=== PATIENT | male | born 1960 | race Caucasian/White ===

== ENCOUNTER 2016-07-22 20:47 | Inpatient (IN) | payer BC ==
[~2016-07-22] VITALS: Ht 165.1 cm; Wt 129.0 kg
--- NOTE | 2016-07-22 21:32 | ERA ---
ER Documentation Chief Complaint Date/Time DATE: 07/22/16 TIME: 21:31 Chief Complaint GENERALIZED AP +VOMITING SINCE THIS AM. BIB BY RESCUE HPI The patient is a 56-year-old male, presenting to the ER because of epigastric abdominal pain, associated with vomiting and diaphoresis today. He denies similar symptoms previously, denies fever, chills, neck pain. The epigastric chest pain radiates up to the substernal area. He denies any hematemesis, vomited mostly mucous. He denied dysuria, diarrhea, constipation. He smokes a pack a day, drinks socially, denies illicit drug Past medical history: CAD, history of non-STEMI, sleep apnea Past surgical history: None ROS All systems reviewed and are negative except as per history of present illness. Medications Home Meds Unable to Obtain Active Prescriptions or Reported Meds Allergies Allergies: Coded Allergies: No Known Allergy (Unverified , 07/22/16) PMhx/Soc History of Surgery: No Anesthesia Reaction: No Hx Neurological Disorder: No Hx Respiratory Disorders: No Hx Cardiac Disorders: No Hx Psychiatric Problems: No Hx Miscellaneous Medical Probl: No Hx Alcohol Use: Yes (OOC) Hx Substance Use: No Hx Tobacco Use: Yes Physical Exam Vitals Vital Signs Date Time Temp Pulse Resp B/P Pulse Ox O2 Delivery O2 Flow Rate FiO2 07/23/16 01:30 93 26 154/81 95 Nasal Cannula 2.0 07/23/16 00:00 98 15 144/104 97 Nasal Cannula 2.0 07/22/16 23:00 103 14 156/86 93 Nasal Cannula 2.0 07/22/16 22:00 101 20 154/91 98 Nasal Cannula 2.0 07/22/16 21:45 Nasal Cannula 2 07/22/16 20:52 100.1 111 26 165/81 94 Physical Exam Const: No acute distress. Head: Atraumatic. Eyes: Normal Conjunctiva. ENT: Normal External Ears, Nose and Mouth. Neck: Full range of motion. No meningismus. Resp: Clear to auscultation bilaterally. Cardio: Regular but tachycardic Abd: Soft, non distended, normal bowel sounds, diffuse abdominal tenderness, more tender at the epigastric area, no rigidity, rebound, CVA tenderness Skin: No petechiae or rashes. Back: No midline or flank tenderness. Ext: No cyanosis, or edema. Neur: Awake and alert. No focal deficit Psych: Normal Mood and Affect. Result Diagram: 07/22/16214907/22/162149 Results 24 hrs Laboratory Tests Test 07/22/16 21:50 07/22/16 22:33 07/22/16 22:40 07/22/16 23:50 White Blood Count 9.410^3/ul Red Blood Count 5.6610^6/ul Hemoglobin 17.1g/dl Hematocrit 50.5% Mean Corpuscular Volume 89.2fl Mean Corpuscular Hemoglobin 30.2pg Mean Corpuscular Hemoglobin Concent 33.9g/dl Red Cell Distribution Width 13.0% Platelet Count 05833^3/UL Mean Platelet Volume 10.1fl Neutrophils % 86.5% Lymphocytes % 8.1% Monocytes % 3.1% Eosinophils % 1.4% Basophils % 0.4% Nucleated Red Blood Cells % 0.0/100WBC Neutrophils # 8.110^3/ul Lymphocytes # 0.810^3/ul Monocytes # 0.310^3/ul Eosinophils # 0.110^3/ul Basophils # 0.010^3/ul Nucleated Red Blood Cells # 0.010^3/ul Prothrombin Time 12.7Sec Prothrombin Time Ratio 1.0 INR International Normalized Ratio 0.95 Activated Partial Thromboplast Time 27.2Sec Sodium Level 136mmol/L Potassium Level 4.3mmol/L Chloride Level 103mmol/L Carbon Dioxide Level 24mmol/L Anion Gap 13 Blood Urea Nitrogen 25mg/dl Creatinine 0.70mg/dl Glucose Level 203mg/dl Lactic Acid Level 2.2mmol/L 1.8mmol/L Calcium Level 8.8mg/dl Total Bilirubin 0.5mg/dl Direct Bilirubin 0.00mg/dl Indirect Bilirubin 0.5mg/dl Aspartate Amino Transf (AST/SGOT) 36IU/L Alanine Aminotransferase (ALT/SGPT) 70IU/L Alkaline Phosphatase 123IU/L Troponin I < 0.012ng/ml B-Type Natriuretic Peptide 46PG/ML Total Protein 7.6g/dl Albumin 4.6g/dl Globulin 3.00g/dl Albumin/Globulin Ratio 1.53 Lipase 145U/L Urine Color YELLOW Urine Clarity CLEAR Urine pH 5.5 Urine Specific [place] >=1.030 Urine Ketones NEGATIVE Urine Nitrite NEGATIVE Urine Bilirubin NEGATIVE Urine Urobilinogen 0.2 E.U./dL Urine Leukocyte Esterase NEGATIVE Urine Microscopic RBC 0-2/HPF Urine Microscopic WBC 2-5/HPF Urine Squamous Epithelial Cells FEW Urine Mucus FEW Urine Hemoglobin NEGATIVE Urine Glucose 0.1%% Urine Total Protein 2+ Bedside Urine pH (LAB) 5.5 Bedside Urine Protein (LAB) 3+ Bedside Urine Glucose (UA) 0.1% Bedside Urine Ketones (LAB) Negative Bedside Urine Blood Negative Bedside Urine Nitrite (LAB) Negative Bedside Urine Leukocyte Esterase (L Negative Current Medications Medications (Trade) Dose Ordered Sig/Bhaskar Route PRN Reason Start Time Stop Time Status Last Admin Dose Admin Ondansetron HCl (Zofran Inj) 4 mg ONCE STAT IV 07/22/16 21:39 07/22/16 21:44 DC 07/22/16 21:46 Morphine Sulfate (morphine) 4 mg ONCE STAT IV 07/22/16 21:48 07/22/16 21:49 DC 07/22/16 21:53 Ondansetron HCl 4 mg 4 mg ONCE STAT IV 07/22/16 21:48 07/22/16 21:49 DC 07/22/16 21:53 Sodium Chloride 4,010 ml @ 4,010 mls/hr BOLUS X1 ONCE IV 07/23/16 00:30 07/23/16 01:29 DC 07/23/16 00:18 Piperacillin Sod/ Tazobactam Sod (Zosyn 3.375gm/ 100 ml (Pmx)) 100 ml @ 200 mls/hr ONCE ONCE IVPB 07/23/16 00:30 07/23/16 00:59 DC 07/23/16 00:18 Aspirin (Aspirin) 325 mg ONCE ONCE PO 07/23/16 00:30 07/23/16 00:31 DC 07/23/16 00:18 Nitroglycerin (Nitroglycerin 2% Oint) 1 inch ONCE ONCE TD 07/23/16 00:30 07/23/16 00:31 DC 07/23/16 00:19 Procedures/[place] [id number] Radiology Main Line: [phone] DIAGNOSTIC IMAGING REPORT Patient: HYUN BRYAN : 1960 Age: 56 Sex: M MR #: [id number] DOS: 07/22/169 Ordering MD: SUSHILA CERVANTES MD Location: E/R Room/Bed: PROCEDURE: CHEST - 1 VIEW CLINICAL INDICATION: 56-year-old male with chest pain. TECHNIQUE: A single frontal AP portable view of the chest was performed. The images were reviewed on a PACS workstation. COMPARISON: Chest x-ray January 05, 2013. FINDINGS: The cardiomediastinal silhouette is prominent but without significant interval change. There is a shallow inspiration. There is mild bibasilar subsegmental atelectasis. There is no evidence for an infiltrate. There is no evidence for congestive heart failure. There is no evidence for pneumothorax. The osseous structures are intact. IMPRESSION: Shallow inspiration with mild bibasilar subsegmental atelectasis. .Nicko Mason MD, MD Date Time Electronically viewed and signed by .Nicko Mason MD, MD on 07/22/2016 22:18 .M/ CC: SUSHILA CERVANTES MD [place] [id number] Radiology Main Line: [phone] DIAGNOSTIC IMAGING REPORT Patient: HYUN BRYAN : 1960 Age: 56 Sex: M MR #: [id number] DOS: 07/22/16 215 Ordering MD: SUSHILA CERVANTES MD Location: E/R Room/Bed: PROCEDURE: CT Abdomen and Pelvis without contrast CLINICAL INDICATION: Epigastric abdominal pain with vomiting TECHNIQUE: Transaxial images were obtained through the abdomen and pelvis on a multi-slice scanner without the intravenous contrast administration. No oral contrast had previously been given. Sagittal and coronal re-formations were subsequently reconstructed. One or more of the following dose reduction techniques were used: - Automated exposure control. - Adjustment of the mA and/or kV according to patient size. - Use of iterative reconstruction technique. Radiation dose: CTDIvol = 23.66 mGy; DLP = 1407.81 mGy-cm. COMPARISON: No prior studies are available for comparison. FINDINGS: Lung bases: The lung bases appear unremarkable but there is a prominent mediastinal fat pad. Liver: The liver is enlarged and heterogeneously extensively fatty infiltrated. No discrete focal lesion is identified. Gallbladder: The wall is not thickened. No radiopaque stones are identified. Bile ducts: The intra and extrahepatic bile ducts are normal in caliber. Pancreas: Appears normal with no mass or inflammation evident. Spleen: The spleen is enlarged. Adrenals: The adrenals are mildly prominent. Kidneys, ureters and bladder: The kidneys are normal in size and there is no mass, pathological calcification, or hydronephrosis evident. There is no perinephric stranding. The ureters are normal in caliber and no ureteroliths are identified. The bladder appears unremarkable. Reproductive organs: The prostate is not enlarged. Stomach and bowel: The stomach is moderately distended with fluid and food debris. The small bowel is mildly diffusely distended with fluid compatible with ileus. There is no evidence of bowel obstruction or inflammation. Appendix: The vermiform appendix is not discretely identified. Peritoneum: No free intraperitoneal fluid or air is identified. Aorta: There is atherosclerotic vascular calcification but no abdominal aortic aneurysm is evident. IVC: Unremarkable. Lymph nodes: No pathologically enlarged nodes are identified. Osseous structures: Moderate diffuse degenerative spine changes are noted. IMPRESSION: 1. The stomach is moderately distended with fluid and food debris and the small bowel gas pattern reflects an ileus. There is no evidence of bowel obstruction or inflammation. The vermiform appendix is not discretely identified. 2. Hepatomegaly with heterogeneous but extensive fatty infiltration. There is mild splenomegaly. 3. There is no free intraperitoneal fluid or air. 4. The adrenals appear mildly hypertrophied. 5. Mild atherosclerotic vascular calcification 6. Moderate degenerative spine changes. Physician Navdeep Date Time Electronically viewed and signed by Physician Navdeep on 07/22/2016 22:44 RH/ CC: SUSHILA CERVANTES MD EKG: At 2138 hrs. read by emergency physician Rate/Rhythm: Sinus tachycardia 101 beats/min QRS, ST, T-waves: No ST elevation, no T inversion, RSR prime in V1, left anterior fascicular block, inferior Q waves Impression: Abnormal EKG EKG: At 2214 hrs. read by emergency physician Rate/Rhythm: Sinus tachycardia 102 beats/min QRS, ST, T-waves: No ST elevation, no T inversion, RSR prime in V1, left anterior fascicular block, inferior Q waves Impression: Abnormal EKG MEDICAL MAKING DECISION: The patient is a 56-year-old male, presenting with acute severe sepsis, acute chest pain. He was treated with normal saline 30 mL/ kg IV, Zosyn IV for acute severe sepsis, aspirin 325 mg p.o., 1 inch of nitroglycerin ointment, morphine 4 mg IV for pain and Zofran 4 mg IV for nausea with good response. The differential diagnoses acute chest pain considered include but are not limited to acute coronary syndrome, acute myocardial infarction, pericarditis, pulmonary embolism, aortic dissection, pneumonia, pleural effusion, pneumothorax , GERD, chest wall pain. The differential diagnoses acute abdominal pain considered include but are not limited to cholelithiasis, cholecystitis, cystitis, pancreatitis, hepatitis, gastritis, peptic ulcer disease, gastric ulcer, appendicitis, diverticulitis, cholangitis, choledocholithiasis, partial small bowel obstruction. Admit MDM: Patient's infectious symptoms have not stabilized and the patient is at risk of rapid decompensation. The patient will be admitted for careful hydration, antibiotic therapy, and infectious source control. Severe Sepsis criteria: Infectious source: Unknown End organ damage indicated by: Lactate > 2.0 mmol/L Sepsis Management: Time of recognition of severe sepsis/septic shock:2200 hours Within 3 hours of recognition: Blood cultures x 2 before broad-spectrum antibiotics: Yes 30 ml/kg NS bolus completed Initial lactate 2.2 Repeat lactate pending Critical Care: Critical care time 35 minutes Emergent fluid management while maintaining close respiratory support. Provision of immediate and broad-spectrum antibiotic therapy. Simultaneous assessment for possible sources in order to direct targeted therapy. Consideration for invasive and chemical support to prevent cardiopulmonary collapse. Departure Diagnosis: Primary Impression: Severe sepsis Additional Impressions: Chest pain Abdominal pain Transaminitis Condition: Stable Comments I discussed the findings with the patient. I discussed the patient with the on- call hospitalist Dr. Rouse at 12:40 AM who was made aware of the lab, the treatment, the patient condition. The patient is admitted to telemetry The patient's blood pressure was elevated (>120/80) but appears stable without evidence of hypertension emergency or urgency. The patient was counseled about the risks of hypertension and urged to pursue outpatient monitoring and therapy within a week with their primary care physician. SUSHILA CERVANTES MD July 22, 2016 21:32
[2016-07-22] MEDS ORDERED: ONDANSETRON 4 MG INJ IV STA ×2 (21:39→21:48)
[2016-07-22] MEDS ORDERED: morphine 4 MG/ML VIAL IV STA (21:48)
[2016-07-22 22:12] LABS: ADD SCAN DIFF NO
[2016-07-22 22:14] LABS: BASOPHILS % 0.4 % (0.0-2.0); EOSINOPHILS # 0.1 10^3/ul (0.0-0.5); EOSINOPHILS % 1.4 % (0.0-7.0); HEMATOCRIT 50.5 % (42.0-52.0); HEMOGLOBIN 17.1 g/dl (14.0-18.0); LYMPHOCYTES # 0.8 10^3/ul (0.8-2.9); LYMPHOCYTES % 8.1 % (15.0-51.0); MEAN CORPUSCULAR HEMOGLOBIN 30.2 pg (29.0-33.0); MEAN CORPUSCULAR HGB CONC 33.9 g/dl (32.0-37.0); MEAN CORPUSCULAR VOLUME 89.2 fl (82.0-101.0); MEAN PLATELET VOLUME 10.1 fl (7.4-10.4); MONOCYTE # 0.3 10^3/ul (0.3-0.9); MONOCYTES % 3.1 % (0.0-11.0); NEUTROPHIL # 8.1 10^3/ul (1.6-7.5); NEUTROPHILS % 86.5 % (39.0-77.0); PLATELET COUNT 207 10^3/UL (140-415); RED BLOOD COUNT 5.66 10^6/ul (4.70-6.10); WHITE BLOOD COUNT 9.4 10^3/ul (4.8-10.8)
--- NOTE | 2016-07-22 22:18 | RADRPT ---
PROCEDURE: CHEST - 1 VIEW CLINICAL INDICATION: 56-year-old male with chest pain. TECHNIQUE: A single frontal AP portable view of the chest was performed. The images were reviewed on a PACS workstation. COMPARISON: Chest x-ray January 05, 2013. FINDINGS: The cardiomediastinal silhouette is prominent but without significant interval change. There is a s hallow inspiration. There is mild bibasilar subsegmental atelectasis. There is no evidence for an infiltrate. There is no evidence for congestive heart failure. There is no evidence for pneumothora x. The osseous structures are intact. IMPRESSION: Shallow inspiration with mild bibasilar subsegmental atelectasis. .Nicko Mason MD, MD Date Time Electronically viewed and signed by .Nicko Mason MD, on 07/22/2016 22:18 .M/
[2016-07-22 22:30] LABS: INR 0.95; PARTIAL THROMBOPLASTIN TIME 27.2 Sec (25.0-35.0); PROTIME 12.7 Sec (12.2-14.2)
[2016-07-22 22:38] LABS: URINE BLOOD (Dip) POC Negative (NEGATIVE)
--- NOTE | 2016-07-22 22:45 | RADRPT ---
PROCEDURE: CT Abdomen and Pelvis without contrast CLINICAL INDICATION: Epigastric abdominal pain with vomiting TECHNIQUE: Transaxial images were obtained through the abdomen and pelvis on a multi-slice scanner without the intravenous contrast administration. No oral contrast had previously been given. Sagit namrata and coronal re-formations were subsequently reconstructed. One or more of the following dose reduction techniques were used: - Automated exposure control. - Adjustment of the mA and/or kV according to patient size. - Use of iterative reconstruction technique. Radiation dose: CTDIvol = 23.66 mGy; DLP = 1407.81 mGy-cm. COMPARISON: No prior studies are available for comparison. FINDINGS: Lung bases: The lung bases appear unremarkable but there is a prominent mediastinal fat pad. Liver: The liver is enlarged and heterogeneously extensively fatty infiltrated. No discrete focal l esion is identified. Gallbladder: The wall is not thickened. No radiopaque stones are identified. Bile ducts: The intra and extrahepatic bile ducts are normal in caliber. Pancreas: Appears normal with no mass or inflammation evident. Spleen: The spleen is enlarged. Adrenals: The adrenals are mildly prominent. Kidneys, ureters and bladder: The kidneys are normal in size and there is no mass, pathological calc ification, or hydronephrosis evident. There is no perinephric stranding. The ureters are normal in c aliber and no ureteroliths are identified. The bladder appears unremarkable. Reproductive organs: The prostate is not enlarged. Stomach and bowel: The stomach is moderately distended with fluid and food debris. The small bowel is mildly diffusely distended with fluid compatible with ileus. There is no evidence of bowel obstr uction or inflammation. Appendix: The vermiform appendix is not discretely identified. Peritoneum: No free intraperitoneal fluid or air is identified. Aorta: There is atherosclerotic vascular calcification but no abdominal aortic aneurysm is evident. IVC: Unremarkable. Lymph nodes: No pathologically enlarged nodes are identified. Osseous structures: Moderate diffuse degenerative spine changes are noted. IMPRESSION: 1. The stomach is moderately distended with fluid and food debris and the small bowel gas pattern r eflects an ileus. There is no evidence of bowel obstruction or inflammation. The vermiform appendi x is not discretely identified. 2. Hepatomegaly with heterogeneous but extensive fatty infiltration. There is mild splenomegaly. 3. There is no free intraperitoneal fluid or air. 4. The adrenals appear mildly hypertrophied. 5. Mild atherosclerotic vascular calcification 6. Moderate degenerative spine changes. Rebecca Yancey Physician Date Time Electronically viewed and signed by Rebecca Yancey Physician on 07/22/2016 22:44 /
[2016-07-22 22:58] LABS: ALANINE AMINOTRANSFERASE 70 IU/L (13-69); ALBUMIN 4.6 g/dl (3.3-4.9); ALBUMIN/GLOBULIN RATIO 1.53; ALKALINE PHOSPHATASE 123 IU/L (42-121); ANION GAP 13 (8-16); ASPARTATE AMINO TRANSFERASE 36 IU/L (15-46); BILIRUBIN,INDIRECT 0.5 mg/dl (0-1.1); BILIRUBIN,TOTAL 0.5 mg/dl (0.2-1.3); BLOOD UREA NITROGEN 25 mg/dl (7-20); CALCIUM 8.8 mg/dl (8.4-10.2); CARBON DIOXIDE 24 mmol/L (21-31); CHLORIDE 103 mmol/L (97-110); GLUCOSE 203 mg/dl (70-220); POTASSIUM 4.3 mmol/L (3.5-5.1); SODIUM 136 mmol/L (135-144); TOTAL PROTEIN 7.6 g/dl (6.1-8.1)
[2016-07-22 23:10] LABS: B-TYPE NATRIURETIC PEPTIDE 46 PG/ML (0-125)
[2016-07-22 23:26] LABS: TROPONIN-I < 0.012 ng/ml (0.00-0.12)
[2016-07-22 23:44] LABS: ADD UMIC YES; URINE BILIRUBIN (Dip) NEGATIVE (NEGATIVE); URINE BLOOD (Dip) NEGATIVE (NEGATIVE); URINE COLOR YELLOW (YELLOW); URINE KETONES (Dip) NEGATIVE (NEGATIVE); URINE LEUKOCYTE ESTERASE (Dip) NEGATIVE (NEGATIVE); URINE NITRITE (Dip) NEGATIVE (NEGATIVE); URINE TOTAL PROTEIN (Dip) 2+ (NEGATIVE); URINE UROBILINOGEN (Dip) 0.2 E.U./dL (0.1-1.0)
[2016-07-22 23:56] LABS: SQUAMOUS EPITHELIAL CELL,UR FEW; URINE RBCS 0-2 /HPF (0)
[2016-07-22 23:57] LABS: MUCUS,URINE FEW
[2016-07-23] MEDS ORDERED: PIPER-TAZO 3.375 GM IV (PMX) 100 ML IVPB ONE (00:30)
[2016-07-23] MEDS ORDERED: ASPIRIN 325 MG TAB PO ONE (00:30)
[2016-07-23] MEDS ORDERED: SOD CHLORIDE 0.9% IV ONE (00:30)
[2016-07-23] MEDS ORDERED: NITROGLYCERIN 2% 1 GM OINT PKT TD ONE (00:30)
[2016-07-23 02:00] LABS: AADO2 Arterial 63.7 mmHg (7.0-24.0); Allen Test ACCEPTAB; Arterial Base Excess -0.1 mmol/L (-3.0-3); Arterial COHb 2.5 % (0.0-3.0); Arterial Fraction of Oxyhgb 89.8 % (93.0-99.0); Arterial HCO3 26.7 mmol/L (22.0-26.0); Arterial MetHb 0.3 % (0.0-1.5); Arterial Total Hemglobin 16.8 g/dl (12.0-18.0); MODE NASAL CANNULA
[2016-07-23 02:10] VITALS: PULSE 100
[2016-07-23 02:20] VITALS: Ht 165.1 cm; Wt 129.0 kg
[2016-07-23] MEDS ORDERED: SOD CHLORIDE 0.9% 1,000 ML IV SCH (03:10)
[2016-07-23] MEDS ORDERED: NACL 0.9% 3 ML SYG IV SCH (03:30)
[2016-07-23] MEDS ORDERED: ONDANSETRON 4 MG INJ IV PRN (03:30)
[2016-07-23] MEDS ORDERED: ACETAMINOPHEN 325 MG TAB PO PRN (03:30)
[2016-07-23] MEDS ORDERED: LORAZEPAM 2 MG INJ IV PRN (03:30)
[2016-07-23] MEDS ORDERED: morphine 2 MG INJ IV PRN (03:30)
--- NOTE | 2016-07-23 03:34 | HP ---
Date/Time of Note Date/Time of Note DATE: 07/23/16 TIME: 03:06 Assessment/Plan VTE Prophylaxis VTE Prophylaxis Intervention: LMWH Lines/Catheters IV Catheter Type [facility]from [facility] Saline Lock Assessment/Plan Chief Complaint/Hosp Course This is a 56-year-old male being admitted to the telemetry floor for: #1 severe sepsis: Patient presented with a temperature 100.1 along with elevated respiratory rate 26 and a lactate of 2.2 and a white blood cell count of 12. At the current time there is no definitive definitive source of infection. CAT scan of the abdomen did show an ileus. Chest x-ray was negative. Will await urine and blood cultures. At the current time patient received Zosyn in the ED, will continue Zosyn for now. Consider ID consult if indicated. #2 chest pain: Rule out ACS. Patient has a prior history of coronary artery disease as well as an WA in the past. Patient also has sleep apnea and is morbidly obese which puts him at high cardiac risk. First troponin was negative will trend troponins, will check a 2D echocardiogram. Will consult cardiology if indicated by the clinical course. #3 ileus: On CT exam shows to be a possible ileus. Will keep patient n.p.o. for right now provide IV fluid hydration. #4 Coronary artery disease: Workup for chest pain as per #2. Will consult cardiology as indicated. Will ask patient's family to bring in home medications. #5sleep apnea: Patient did bring his home CPAP machine will continue him on the CPAP machine. #6hypertension: We will continue to monitor this again patient was advised to provide us with his home medications. #7 DVT and GI prophylaxis: Lovenox, Protonix Further treatment strategy will be implemented as per the clinical course Problems: HPI/ROS Admit Date/Time Admit Date/Time July 23, 2016 at 00:47 Hx of Present Illness Chief complaint: epigastric chest pain The patient is a 56-year-old male, presenting to the ER because of epigastric abdominal pain, associated with vomiting and diaphoresis today. He denies similar symptoms previously, denies fever, chills, neck pain. The epigastric chest pain radiates up to the substernal area. He denies any hematemesis, vomited mostly mucous. He denied dysuria, diarrhea, constipation. He smokes a pack a day, drinks socially, denies illicit drug allergies: nkda meds: see APR ROS Const: As per HPI Eyes : No pain discharge or redness or change in visual acuity ENT: No pain, sore throat, congestion, congestion, dysphagia or discharge Respiratory: as per HPI Cardiovascular: As per HPI GI : no change in appetite, abdominal pain, nausea, vomiting, diarrhea, constipation, or change in the color his stool Genitourinary: No dysuria, hematuria, flank pain , discharge or CVA tenderness Musculoskeletal: No joint pain, back pain, neck pain, restricted range of motion in neck or joints Skin: No rash, bruising or hives Neuro: No headache, dizziness, syncope, seizure, focal weakness Endocrine: No polyuria, polydipsia, temperature intolerance Psych: No hallucination, depression, anxiety or suicidal ideation PMH/Family/Social Past Medical History CAD, history of non-STEMI, sleep apnea, hypertension Past Surgical History Cholecystectomy, left ankle surgery, left and surgery Social History Alcohol Use: none Smoking Status: Current every day smoker (1 pack per day 32 years) Drug Use: none Exam/Review of Systems Vital Signs Vitals Vital Signs Date Time Temp Pulse Resp B/P Pulse Ox O2 Delivery O2 Flow Rate FiO2 07/23/16 01:30 93 26 154/81 95 Nasal Cannula 2.0 07/22/16 20:52 100.1 Exam Exam General: This is a morbidly obese male laying in bed in no acute distress HEENT: Atraumatic, normocephalic. The pupils are equal, round and reactive. Using a sleep apnea machine Neck: Supple with full range of motion. No rigidity or meningismus Chest: Tender to palpate across the anterior chest wall Lungs: Clear to auscultation bilaterally no crackles rales or wheezing Heart: Normal S1-S2, Regular rhythm and rate. No murmur, S3, or S4 Abdomen: Soft , nontender, nondistended , bowel sounds are present. No guarding no rebound tenderness , No masses or organomegaly. Right abdominal quadrant surgical scar. Extremities: Normal to inspection, no edema no cyanosis Neurologic: Normal mental status, speech normal, cranial nerves II through XII are intact, motor and sensory are intact, no focal weakness Additional Comments PROCEDURE: CT Abdomen and Pelvis without contrast CLINICAL INDICATION: Epigastric abdominal pain with vomiting TECHNIQUE: Transaxial images were obtained through the abdomen and pelvis on a multi-slice scanner without the intravenous contrast administration. No oral contrast had previously been given. Sagittal and coronal re-formations were subsequently reconstructed. One or more of the following dose reduction techniques were used: - Automated exposure control. - Adjustment of the mA and/or kV according to patient size. - Use of iterative reconstruction technique. Radiation dose: CTDIvol = 23.66 mGy; DLP = 1407.81 mGy-cm. COMPARISON: No prior studies are available for comparison. FINDINGS: Lung bases: The lung bases appear unremarkable but there is a prominent mediastinal fat pad. Liver: The liver is enlarged and heterogeneously extensively fatty infiltrated. No discrete focal lesion is identified. Gallbladder: The wall is not thickened. No radiopaque stones are identified. Bile ducts: The intra and extrahepatic bile ducts are normal in caliber. Pancreas: Appears normal with no mass or inflammation evident. Spleen: The spleen is enlarged. Adrenals: The adrenals are mildly prominent. Kidneys, ureters and bladder: The kidneys are normal in size and there is no mass, pathological calcification, or hydronephrosis evident. There is no perinephric stranding. The ureters are normal in caliber and no ureteroliths are identified. The bladder appears unremarkable. Reproductive organs: The prostate is not enlarged. Stomach and bowel: The stomach is moderately distended with fluid and food debris. The small bowel is mildly diffusely distended with fluid compatible with ileus. There is no evidence of bowel obstruction or inflammation. Appendix: The vermiform appendix is not discretely identified. Peritoneum: No free intraperitoneal fluid or air is identified. Aorta: There is atherosclerotic vascular calcification but no abdominal aortic aneurysm is evident. IVC: Unremarkable. Lymph nodes: No pathologically enlarged nodes are identified. Osseous structures: Moderate diffuse degenerative spine changes are noted. IMPRESSION: 1. The stomach is moderately distended with fluid and food debris and the small bowel gas pattern reflects an ileus. There is no evidence of bowel obstruction or inflammation. The vermiform appendix is not discretely identified. 2. Hepatomegaly with heterogeneous but extensive fatty infiltration. There is mild splenomegaly. 3. There is no free intraperitoneal fluid or air. 4. The adrenals appear mildly hypertrophied. 5. Mild atherosclerotic vascular calcification 6. Moderate degenerative spine changes. Physician Navdeep Date Time Electronically viewed and signed by Physician Navdeep on 07/22/2016 22:44 PROCEDURE: CHEST - 1 VIEW CLINICAL INDICATION: 56-year-old male with chest pain. TECHNIQUE: A single frontal AP portable view of the chest was performed. The images were reviewed on a PACS workstation. COMPARISON: Chest x-ray January 05, 2013. FINDINGS: The cardiomediastinal silhouette is prominent but without significant interval change. There is a shallow inspiration. There is mild bibasilar subsegmental atelectasis. There is no evidence for an infiltrate. There is no evidence for congestive heart failure. There is no evidence for pneumothorax. The osseous structures are intact. IMPRESSION: Shallow inspiration with mild bibasilar subsegmental atelectasis. ate/Rhythm: Sinus tachycardia 102 beats/min QRS, ST, T-waves: No ST elevation, no T inversion, RSR prime in V1, left anterior fascicular block, inferior Q waves As per ED physician documentation Labs Result Diagram: 07/22/16214907/22/162149 SAEED GARCIA July 23, 2016 03:16
[2016-07-23 03:51] VITALS: BP 147/82; RESP 17
[2016-07-23 04:43] LABS: CREATINE KINASE 328 IU/L (23-200)
[2016-07-23 04:55] LABS: TROPONIN-I < 0.012 ng/ml (0.00-0.12)
[2016-07-23] MEDS ORDERED: PANTOPRAZOLE 40 MG INJ IV SCH (06:00)
[2016-07-23] MEDS ORDERED: PIPER-TAZO 3.375 GM IV (PMX) 100 ML IVPB SCH (06:00)
[2016-07-23 07:46] VITALS: BP 162/74; RESP 20
[2016-07-23] MEDS ORDERED: ENOXAPARIN 40 MG/0.4 ML SYG SC SCH (09:00)
[2016-07-23 09:07] VITALS: PULSE 99
--- NOTE | 2016-07-23 09:47 | DS ---
Date/Time of Note Date/Time of Note DATE: 07/23/16 TIME: 09:41 Discharge Summary Admission/Discharge Info Admit Date/Time July 23, 2016 at 00:47 Discharge Date/Time Final Diagnosis ileus Patient Condition: Fair Consults cardiology Procedures 07.23 CT A/P IMPRESSION: 1. The stomach is moderately distended with fluid and food debris and the small bowel gas pattern reflects an ileus. There is no evidence of bowel obstruction or inflammation. The vermiform appendix is not discretely identified. 2. Hepatomegaly with heterogeneous but extensive fatty infiltration. There is mild splenomegaly. 3. There is no free intraperitoneal fluid or air. 4. The adrenals appear mildly hypertrophied. 5. Mild atherosclerotic vascular calcification 6. Moderate degenerative spine changes. Hx of Present Illness 56 yo M presents with 1 day of vomitting, epigastric pain. Hospital Course Pt's imaging showed an ileus. In the morning pt was very angry, requesting to leave the hospital. With the help of an Tajik speaking orthodontic lab technician, pt's condition was discussed at length with him and his . Nature of ileus, delay in small bowel transit, discussed at length. Risks of leaving at this time including but not limited to recurrence of abd pain and vomiting, debility , and discussed with patient. Nonetheless, patient still insisted on leaving. Pt advise to start with liquid PO trial and to return to this or the nearest ER should any vomiting, abdominal pain, chest pain, or shortness of breath occur. Nurse completed AMA paperwork. Home Meds Unable to Obtain Active Prescriptions or Reported Meds Primary Care Provider Jean-Claude Bruno Pending Labs Laboratory Tests Test 07/22/16 21:50 07/22/16 22:33 07/22/16 22:40 07/22/16 23:50 White Blood Count 9.410^3/ul (4.8-10.8) Red Blood Count 5.6610^6/ul (4.70-6.10) Hemoglobin 17.1g/dl (14.0-18.0) Hematocrit 50.5% (42.0-52.0) Mean Corpuscular Volume 89.2fl (82.0-101.0) Mean Corpuscular Hemoglobin 30.2pg (29.0-33.0) Mean Corpuscular Hemoglobin Concent 33.9g/dl (32.0-37.0) Red Cell Distribution Width 13.0% (11.5-14.5) Platelet Count 64342^3/UL (140-415) Mean Platelet Volume 10.1fl (7.4-10.4) Neutrophils % 86.5% (39.0-77.0) Lymphocytes % 8.1% (15.0-51.0) Monocytes % 3.1% (0.0-11.0) Eosinophils % 1.4% (0.0-7.0) Basophils % 0.4% (0.0-2.0) Nucleated Red Blood Cells % 0.0/100WBC (0.0-0.0) Neutrophils # 8.110^3/ul (1.6-7.5) Lymphocytes # 0.810^3/ul (0.8-2.9) Monocytes # 0.310^3/ul (0.3-0.9) Eosinophils # 0.110^3/ul (0.0-0.5) Basophils # 0.010^3/ul (0.0-0.1) Nucleated Red Blood Cells # 0.010^3/ul (0.0-0.0) Prothrombin Time 12.7Sec (12.2-14.2) Prothrombin Time Ratio 1.0 INR International Normalized Ratio 0.95 Activated Partial Thromboplast Time 27.2Sec (25.0-35.0) Sodium Level 136mmol/L (135-144) Potassium Level 4.3mmol/L (3.5-5.1) Chloride Level 103mmol/L (97-110) Carbon Dioxide Level 24mmol/L (21-31) Anion Gap 13 (8-16) Blood Urea Nitrogen 25mg/dl (7-20) Creatinine 0.70mg/dl (0.61-1.24) Glucose Level 203mg/dl (70-220) Lactic Acid Level 2.2mmol/L (0.5-2.2) 1.8mmol/L (0.5-2.2) Calcium Level 8.8mg/dl (8.4-10.2) Total Bilirubin 0.5mg/dl (0.2-1.3) Direct Bilirubin 0.00mg/dl (0.00-0.20) Indirect Bilirubin 0.5mg/dl (0-1.1) Aspartate Amino Transf (AST/SGOT) 36IU/L (15-46) Alanine Aminotransferase (ALT/SGPT) 70IU/L (13-69) Alkaline Phosphatase 123IU/L (42-121) Troponin I < 0.012ng/ml (0.00-0.12) B-Type Natriuretic Peptide 46PG/ML (0-125) Total Protein 7.6g/dl (6.1-8.1) Albumin 4.6g/dl (3.3-4.9) Globulin 3.00g/dl (1.3-3.2) Albumin/Globulin Ratio 1.53 Lipase 145U/L (23-300) Urine Color YELLOW (YELLOW) Urine Clarity CLEAR (CLEAR) Urine pH 5.5 (5.0-9.0) Urine Specific [place] >=1.030 (1.003-1.030) Urine Ketones NEGATIVE (NEGATIVE) Urine Nitrite NEGATIVE (NEGATIVE) Urine Bilirubin NEGATIVE (NEGATIVE) Urine Urobilinogen 0.2 E.U./dL (0.1-1.0) Urine Leukocyte Esterase NEGATIVE (NEGATIVE) Urine Microscopic RBC 0-2/HPF (0) Urine Microscopic WBC 2-5/HPF (0) Urine Squamous Epithelial Cells FEW Urine Mucus FEW Urine Hemoglobin NEGATIVE (NEGATIVE) Urine Glucose 0.1%% (NEGATIVE) Urine Total Protein 2+ (NEGATIVE) Bedside Urine pH (LAB) 5.5 (5.0-8.5) Bedside Urine Protein (LAB) 3+ (NEGATIVE) Bedside Urine Glucose (UA) 0.1% (NEGATIVE) Bedside Urine Ketones (LAB) Negative (NEGATIVE) Bedside Urine Blood Negative (NEGATIVE) Bedside Urine Nitrite (LAB) Negative (NEGATIVE) Bedside Urine Leukocyte Esterase (L Negative (NEGATIVE) Test 07/23/16 01:35 07/23/16 03:36 Blood Gas Specimen Source Blood arterial Arterial Blood Date Drawn 07/23/2016 1:47:20 AM Arterial Blood pH (Temp corrected) 7.338 (7.350-7.450) Arterial Blood pCO2 (Temp correct) 50.8mmhg (35-45) Arterial Blood pO2 (Temp corrected) 68.7mmHG (80-100.0) Arterial Blood HCO3 26.7mmol/L (22.0-26.0) Arterial Blood Base Excess -0.1mmol/L (-3.0-3) Arterial Blood Oxygen Saturation 92.4mmHG (95.0-98.0) Kevin Test ACCEPTAB Arterial Blood Gas Puncture Site Right Radial Arterial Blood Carboxyhemoglobin 2.5% (0.0-3.0) Arterial Blood Methemoglobin 0.3% (0.0-1.5) Blood Gas A-a O2 Differential 63.7mmHg (7.0-24.0) Oxyhemoglobin Percent 89.8% (93.0-99.0) Total Hemoglobin 16.8g/dl (12.0-18.0) Blood Gas Temperature 37.0C Blood Gas Modality NASAL CANNULA FiO2 27.0% Blood Gas Notified Whom AA Blood Gas Notified Time 07/23/2016 2:00:00 AM Lactic Acid Level 1.6mmol/L (0.5-2.2) Creatine Kinase 328IU/L (23-200) Creatine Kinase Index 6.9 Creatinine Kinase MB (Mass) 22.70ng/ml (0.0-2.4) Troponin I < 0.012ng/ml (0.00-0.12) Microbiology Date/Time Source Procedure Growth Status 07/22/16 22:33 Catheter Urine Urine Culture - Preliminary NO GROWTH AFTER 24 HOURS Resulted JENNIFER MARCANO MD July 23, 2016 09:47
--- NOTE | 2016-07-23 09:49 | CONS ---
Date/Time of Note Date/Time of Note DATE: 07/23/16 TIME: 09:34 Assessment/Plan Assessment/Plan Chief Complaint/Hosp Course Chest/epigastric pain: In setting of nausea/vomiting/ileus likely GI related. Epigastric/chest burning likely acid related from vomiting. Though pt has cardiac risk factors and has had a prior NV, no active e/o ischemia. Trop neg x2. CKMB was checked once and is elevated which is unusual. Ideally would like one more set of CKMB and trops. Also a stress test could be appropriate but the pt refuses and would like to sign out AMA. H/o CAD/NV HL HTN Active smoker: encouraged cessation, not interested -as pt is leaving AMA, please have him f/u with outpt cardiology -continue home ASA, statin Problems: Consultation Date/Type/Reason Admit Date/Time July 23, 2016 at 00:47 Date of Consultation: July 23, 2016 Type of Consultation: Cardiology Reason for Consultation Chest/abdominal pain Referring Provider: SAEED GARCIA Hx of Present Illness 56 yo M with a h/o NSTEMI (per pt never had stenting), HL, active smoker, obesity, who presented with abdominal pain, n/v, and was found to have an ileus. As he had mentioned burning sensation in his chest, cardiology was consulted. The pt is very upset and by the end of my interview, he was yelling and very agitated. He notes that he had n/v and diffuse abd pain that started yesterday. No chest pain. He did have burning in his epigastric and substernal area after vomiting. 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 He denies chest pain or SOB with activity. The pt does not want further testing and wishes to sign out AMA. per hPI, limited due to pt cooperation Past Medical History per HPI Social History Alcohol Use: none Smoking Status: Current every day smoker (1 pack per day 32 years) Drug Use: none Exam/Review of Systems Vital Signs Vitals Vital Signs Date Time Temp Pulse Resp B/P Pulse Ox O2 Delivery O2 Flow Rate FiO2 07/23/16 09:07 99 07/23/16 07:46 98.8 20 162/74 96 07/23/16 01:45 2.0 07/23/16 01:30 Nasal Cannula Intake and Output 07/22/16 07/22/16 07/23/16 15:00 23:00 07:00 Intake Total 50 ml Output Total 0 ml Balance 50 ml Exam Limited exam as pt would not allow Constitutional: alert, oriented, other (agitated ) Psych: No nl mood/affect Head: atraumatic, normocephalic Neurological: nl mental status Results sinus, no ST changes, inf q waves Result Diagram: 07/22/16214907/22/162149 Results 24 hrs Laboratory Tests Test 07/22/16 21:50 07/22/16 22:33 07/22/16 22:40 07/22/16 23:50 White Blood Count 9.4 Red Blood Count 5.66 Hemoglobin 17.1 Hematocrit 50.5 Mean Corpuscular Volume 89.2 Mean Corpuscular Hemoglobin 30.2 Mean Corpuscular Hemoglobin Concent 33.9 Red Cell Distribution Width 13.0 Platelet Count 207 Mean Platelet Volume 10.1 Neutrophils % 86.5 H Lymphocytes % 8.1 L Monocytes % 3.1 Eosinophils % 1.4 Basophils % 0.4 Nucleated Red Blood Cells % 0.0 Neutrophils # 8.1 H Lymphocytes # 0.8 Monocytes # 0.3 Eosinophils # 0.1 Basophils # 0.0 Nucleated Red Blood Cells # 0.0 Prothrombin Time 12.7 Prothrombin Time Ratio 1.0 INR International Normalized Ratio 0.95 Activated Partial Thromboplast Time 27.2 Sodium Level 136 Potassium Level 4.3 Chloride Level 103 Carbon Dioxide Level 24 Anion Gap 13 Blood Urea Nitrogen 25 H Creatinine 0.70 Glucose Level 203 Lactic Acid Level 2.2 1.8 Calcium Level 8.8 Total Bilirubin 0.5 Direct Bilirubin 0.00 Indirect Bilirubin 0.5 Aspartate Amino Transf (AST/SGOT) 36 Alanine Aminotransferase (ALT/SGPT) 70 H Alkaline Phosphatase 123 H Troponin I < 0.012 B-Type Natriuretic Peptide 46 Total Protein 7.6 Albumin 4.6 Globulin 3.00 Albumin/Globulin Ratio 1.53 Lipase 145 Urine Color YELLOW Urine Clarity CLEAR Urine pH 5.5 Urine Specific [place] >=1.030 H Urine Ketones NEGATIVE Urine Nitrite NEGATIVE Urine Bilirubin NEGATIVE Urine Urobilinogen 0.2 E.U./dL Urine Leukocyte Esterase NEGATIVE Urine Microscopic RBC 0-2 Urine Microscopic WBC 2-5 Urine Squamous Epithelial Cells FEW Urine Mucus FEW Urine Hemoglobin NEGATIVE Urine Glucose 0.1% H Urine Total Protein 2+ H Bedside Urine pH (LAB) 5.5 Bedside Urine Protein (LAB) 3+ H Bedside Urine Glucose (UA) 0.1% H Bedside Urine Ketones (LAB) Negative Bedside Urine Blood Negative Bedside Urine Nitrite (LAB) Negative Bedside Urine Leukocyte Esterase (L Negative Test 07/23/16 01:35 07/23/16 03:36 Blood Gas Specimen Source Blood arterial Arterial Blood Date Drawn 07/23/2016 1:47:20 AM Arterial Blood pH (Temp corrected) 7.338 L Arterial Blood pCO2 (Temp correct) 50.8 H Arterial Blood pO2 (Temp corrected) 68.7 L Arterial Blood HCO3 26.7 H Arterial Blood Base Excess -0.1 Arterial Blood Oxygen Saturation 92.4 L Kevin Test ACCEPTAB Arterial Blood Gas Puncture Site Right Radial Arterial Blood Carboxyhemoglobin 2.5 Arterial Blood Methemoglobin 0.3 Blood Gas A-a O2 Differential 63.7 H Oxyhemoglobin Percent 89.8 L Total Hemoglobin 16.8 Blood Gas Temperature 37.0 Blood Gas Modality NASAL CANNULA FiO2 27.0 Blood Gas Notified Whom AA Blood Gas Notified Time 07/23/2016 2:00:00 AM Lactic Acid Level 1.6 Creatine Kinase 328 H Creatine Kinase Index 6.9 Creatinine Kinase MB (Mass) 22.70 H Troponin I < 0.012 Medications Medications Current Medications Sodium Chloride (NS) 1,000 ml @ 70 mls/hr [id number] IV Last administered on 07/23 03:10; Admin Dose 70 MLS/HR; Start 07/23/16 at 03:10 Lorazepam (Ativan) 0.5 mg Q6H PRN IV ANXIETY; Start 07/23/16 at 03:30 Ondansetron HCl (Zofran Inj) 4 mg Q6H PRN IV NAUSEA AND/OR VOMITING; Start at 03:30 Acetaminophen (Tylenol Tab) 650 mg Q6H PRN PO PAIN LEVEL 1-3 OR FEVER Last administered on 07/23/16 08:50; Admin Dose 650 MG; Start 07/23/16 at 03:30 Morphine Sulfate (morphine) 2 mg Q4H PRN IV PAIN LEVEL 7-10; Start 07/23/16 at 03:30 Enoxaparin Sodium (Lovenox) 40 mg DAILY SC Last administered on 07/23/16 08:43 ; Admin Dose 40 MG; Start 07/23/16 at 09:00 RICARDO KERNS July 23, 2016 09:44
--- NOTE | 2016-07-23 10:02 | PN ---
Date/Time of Note Date/Time of Note DATE: 07/23/16 TIME: 09:59 Assessment/Plan VTE Prophylaxis VTE Prophylaxis Intervention: SCD's Lines/Catheters IV Catheter Type (from Nrsg): Saline Lock Assessment/Plan Assessment/Plan 56 yo M with pmhx obesity, DANILO presents with 1 day of vomiting, imaging with intestinal ileus. #ileus: bowel rest, IVFs trial of CLD this afternoon per pt request #cardiac risk factors: stress test today as per cardiology #DANILO: Cont cpap No home meds on file, will ask RN to obtain home meds list Subjective 24 Hr Interval Summary Free Text/Dictation Pt initially very angry this morning, requesting AMA discharge. After speaking with his and cardiology, however, agreed to stay. Exam/Review of Systems Vital Signs Vitals Vital Signs Date Time Temp Pulse Resp B/P Pulse Ox O2 Delivery O2 Flow Rate FiO2 07/23/16 09:07 99 07/23/16 07:46 98.8 20 162/74 96 07/23/16 01:45 2.0 07/23/16 01:30 Nasal Cannula Intake and Output 07/22/16 07/22/16 07/23/16 15:00 23:00 07:00 Intake Total 50 ml Output Total 0 ml Balance 50 ml Exam angry, shouting in [place] plethoric no mrg lungs clear hypoactive BS, abd soft ntnd no le edema Results Result Diagram: 07/22/16214907/22/162149 Results 24 hrs Laboratory Tests Test 07/22/16 21:50 07/22/16 22:33 07/22/16 22:40 07/22/16 23:50 White Blood Count 9.4 Red Blood Count 5.66 Hemoglobin 17.1 Hematocrit 50.5 Mean Corpuscular Volume 89.2 Mean Corpuscular Hemoglobin 30.2 Mean Corpuscular Hemoglobin Concent 33.9 Red Cell Distribution Width 13.0 Platelet Count 207 Mean Platelet Volume 10.1 Neutrophils % 86.5 H Lymphocytes % 8.1 L Monocytes % 3.1 Eosinophils % 1.4 Basophils % 0.4 Nucleated Red Blood Cells % 0.0 Neutrophils # 8.1 H Lymphocytes # 0.8 Monocytes # 0.3 Eosinophils # 0.1 Basophils # 0.0 Nucleated Red Blood Cells # 0.0 Prothrombin Time 12.7 Prothrombin Time Ratio 1.0 INR International Normalized Ratio 0.95 Activated Partial Thromboplast Time 27.2 Sodium Level 136 Potassium Level 4.3 Chloride Level 103 Carbon Dioxide Level 24 Anion Gap 13 Blood Urea Nitrogen 25 H Creatinine 0.70 Glucose Level 203 Lactic Acid Level 2.2 1.8 Calcium Level 8.8 Total Bilirubin 0.5 Direct Bilirubin 0.00 Indirect Bilirubin 0.5 Aspartate Amino Transf (AST/SGOT) 36 Alanine Aminotransferase (ALT/SGPT) 70 H Alkaline Phosphatase 123 H Troponin I < 0.012 B-Type Natriuretic Peptide 46 Total Protein 7.6 Albumin 4.6 Globulin 3.00 Albumin/Globulin Ratio 1.53 Lipase 145 Urine Color YELLOW Urine Clarity CLEAR Urine pH 5.5 Urine Specific [place] >=1.030 H Urine Ketones NEGATIVE Urine Nitrite NEGATIVE Urine Bilirubin NEGATIVE Urine Urobilinogen 0.2 E.U./dL Urine Leukocyte Esterase NEGATIVE Urine Microscopic RBC 0-2 Urine Microscopic WBC 2-5 Urine Squamous Epithelial Cells FEW Urine Mucus FEW Urine Hemoglobin NEGATIVE Urine Glucose 0.1% H Urine Total Protein 2+ H Bedside Urine pH (LAB) 5.5 Bedside Urine Protein (LAB) 3+ H Bedside Urine Glucose (UA) 0.1% H Bedside Urine Ketones (LAB) Negative Bedside Urine Blood Negative Bedside Urine Nitrite (LAB) Negative Bedside Urine Leukocyte Esterase (L Negative Test 07/23/16 01:35 07/23/16 03:36 Blood Gas Specimen Source Blood arterial Arterial Blood Date Drawn 07/23/2016 1:47:20 AM Arterial Blood pH (Temp corrected) 7.338 L Arterial Blood pCO2 (Temp correct) 50.8 H Arterial Blood pO2 (Temp corrected) 68.7 L Arterial Blood HCO3 26.7 H Arterial Blood Base Excess -0.1 Arterial Blood Oxygen Saturation 92.4 L Kevin Test ACCEPTAB Arterial Blood Gas Puncture Site Right Radial Arterial Blood Carboxyhemoglobin 2.5 Arterial Blood Methemoglobin 0.3 Blood Gas A-a O2 Differential 63.7 H Oxyhemoglobin Percent 89.8 L Total Hemoglobin 16.8 Blood Gas Temperature 37.0 Blood Gas Modality NASAL CANNULA FiO2 27.0 Blood Gas Notified Whom AA Blood Gas Notified Time 07/23/2016 2:00:00 AM Lactic Acid Level 1.6 Creatine Kinase 328 H Creatine Kinase Index 6.9 Creatinine Kinase MB (Mass) 22.70 H Troponin I < 0.012 Medications Medications Current Medications Sodium Chloride (NS) 1,000 ml @ 70 mls/hr [id number] IV Last administered on 07/23 03:10; Admin Dose 70 MLS/HR; Start 07/23/16 at 03:10 Lorazepam (Ativan) 0.5 mg Q6H PRN IV ANXIETY; Start 07/23/16 at 03:30 Ondansetron HCl (Zofran Inj) 4 mg Q6H PRN IV NAUSEA AND/OR VOMITING; Start at 03:30 Acetaminophen (Tylenol Tab) 650 mg Q6H PRN PO PAIN LEVEL 1-3 OR FEVER Last administered on 07/23/16 08:50; Admin Dose 650 MG; Start 07/23/16 at 03:30 Morphine Sulfate (morphine) 2 mg Q4H PRN IV PAIN LEVEL 7-10; Start 07/23/16 at 03:30 Enoxaparin Sodium (Lovenox) 40 mg DAILY SC Last administered on 07/23/16 08:43 ; Admin Dose 40 MG; Start 07/23/16 at 09:00 JENNIFER MARCANO MD July 23, 2016 10:02
[2016-07-23 11:49] VITALS: BP 129/66; RESP 20
[2016-07-23 12:22] LABS: CREATINE KINASE 340 IU/L (23-200)
[2016-07-23 12:29] VITALS: PULSE 114
[2016-07-23 12:38] LABS: TROPONIN-I < 0.012 ng/ml (0.00-0.12)
[2016-07-23] MEDS ORDERED: ISOS60TA PO (13:12)
[2016-07-23] MEDS ORDERED: ASPI-664 PO (13:12)
[2016-07-23] MEDS ORDERED: IBUP800T25 PO (13:12)
[2016-07-23] MEDS ORDERED: DICL75TA2 PO (13:12)
--- NOTE | 2016-07-23 14:00 | DS ---
Date/Time of Note Date/Time of Note DATE: 07/23/16 TIME: 13:58 Discharge Summary Admission/Discharge Info Admit Date/Time July 23, 2016 at 00:47 Discharge Date/Time July 23, 2016 at 13:30 Final Diagnosis small intestinal ileus Patient Condition: Fair Consults cardiology Procedures Final Diagnosis ileus Patient Condition: Fair Consults cardiology Procedures 07.23 CT A/P IMPRESSION: 1. The stomach is moderately distended with fluid and food debris and the small bowel gas pattern reflects an ileus. There is no evidence of bowel obstruction or inflammation. The vermiform appendix is not discretely identified. 2. Hepatomegaly with heterogeneous but extensive fatty infiltration. There is mild splenomegaly. 3. There is no free intraperitoneal fluid or air. 4. The adrenals appear mildly hypertrophied. 5. Mild atherosclerotic vascular calcification 6. Moderate degenerative spine changes. Hx of Present Illness 56 yo M presents with 1 day of vomitting, epigastric pain. Hospital Course Pt's imaging showed an ileus. In the morning pt was very angry, requesting to leave the hospital. With the help of an Kyrgyz speaking clinical research technician, pt's condition was discussed at length with him and his . Nature of ileus, delay in small bowel transit, discussed at length. Risks of leaving at this time including but not limited to recurrence of abd pain and vomiting, debility , and discussed with patient. Nonetheless, patient still insisted on leaving. Pt advise to start with liquid PO trial and to return to this or the nearest ER should any vomiting, abdominal pain, chest pain, or shortness of breath occur. Nurse completed AMA paperwork. Home Meds Reported Medications Ibuprofen* (Ibuprofen*) 800 Mg Tab, 800 MG PO Q6H, TAB 07/23/16 Isosorbide Mononitrate* (Isosorbide Mononitrate*) 60 Mg Tab.er.24h, 60 MG PO DAILY, TAB 07/23/16 Aspirin* (Aspirin* EC) 81 Mg Tablet., 81 MG PO DAILY, TAB 07/23/16 Diclofenac Sodium* (Diclofenac Sodium*) 75 Mg Tablet.dr, 75 MG PO BID WITH MEALS , #60 TAB 07/23/16 Primary Care Provider Jean-Claude Bruno Time spent on discharge: > 30 minutes Pending Labs Laboratory Tests Test 07/22/16 21:50 07/22/16 22:33 07/22/16 22:40 07/22/16 23:50 White Blood Count 9.410^3/ul (4.8-10.8) Red Blood Count 5.6610^6/ul (4.70-6.10) Hemoglobin 17.1g/dl (14.0-18.0) Hematocrit 50.5% (42.0-52.0) Mean Corpuscular Volume 89.2fl (82.0-101.0) Mean Corpuscular Hemoglobin 30.2pg (29.0-33.0) Mean Corpuscular Hemoglobin Concent 33.9g/dl (32.0-37.0) Red Cell Distribution Width 13.0% (11.5-14.5) Platelet Count 08827^3/UL (140-415) Mean Platelet Volume 10.1fl (7.4-10.4) Neutrophils % 86.5% (39.0-77.0) Lymphocytes % 8.1% (15.0-51.0) Monocytes % 3.1% (0.0-11.0) Eosinophils % 1.4% (0.0-7.0) Basophils % 0.4% (0.0-2.0) Nucleated Red Blood Cells % 0.0/100WBC (0.0-0.0) Neutrophils # 8.110^3/ul (1.6-7.5) Lymphocytes # 0.810^3/ul (0.8-2.9) Monocytes # 0.310^3/ul (0.3-0.9) Eosinophils # 0.110^3/ul (0.0-0.5) Basophils # 0.010^3/ul (0.0-0.1) Nucleated Red Blood Cells # 0.010^3/ul (0.0-0.0) Prothrombin Time 12.7Sec (12.2-14.2) Prothrombin Time Ratio 1.0 INR International Normalized Ratio 0.95 Activated Partial Thromboplast Time 27.2Sec (25.0-35.0) Sodium Level 136mmol/L (135-144) Potassium Level 4.3mmol/L (3.5-5.1) Chloride Level 103mmol/L (97-110) Carbon Dioxide Level 24mmol/L (21-31) Anion Gap 13 (8-16) Blood Urea Nitrogen 25mg/dl (7-20) Creatinine 0.70mg/dl (0.61-1.24) Glucose Level 203mg/dl (70-220) Lactic Acid Level 2.2mmol/L (0.5-2.2) 1.8mmol/L (0.5-2.2) Calcium Level 8.8mg/dl (8.4-10.2) Total Bilirubin 0.5mg/dl (0.2-1.3) Direct Bilirubin 0.00mg/dl (0.00-0.20) Indirect Bilirubin 0.5mg/dl (0-1.1) Aspartate Amino Transf (AST/SGOT) 36IU/L (15-46) Alanine Aminotransferase (ALT/SGPT) 70IU/L (13-69) Alkaline Phosphatase 123IU/L (42-121) Troponin I < 0.012ng/ml (0.00-0.12) B-Type Natriuretic Peptide 46PG/ML (0-125) Total Protein 7.6g/dl (6.1-8.1) Albumin 4.6g/dl (3.3-4.9) Globulin 3.00g/dl (1.3-3.2) Albumin/Globulin Ratio 1.53 Lipase 145U/L (23-300) Urine Color YELLOW (YELLOW) Urine Clarity CLEAR (CLEAR) Urine pH 5.5 (5.0-9.0) Urine Specific [place] >=1.030 (1.003-1.030) Urine Ketones NEGATIVE (NEGATIVE) Urine Nitrite NEGATIVE (NEGATIVE) Urine Bilirubin NEGATIVE (NEGATIVE) Urine Urobilinogen 0.2 E.U./dL (0.1-1.0) Urine Leukocyte Esterase NEGATIVE (NEGATIVE) Urine Microscopic RBC 0-2/HPF (0) Urine Microscopic WBC 2-5/HPF (0) Urine Squamous Epithelial Cells FEW Urine Mucus FEW Urine Hemoglobin NEGATIVE (NEGATIVE) Urine Glucose 0.1%% (NEGATIVE) Urine Total Protein 2+ (NEGATIVE) Bedside Urine pH (LAB) 5.5 (5.0-8.5) Bedside Urine Protein (LAB) 3+ (NEGATIVE) Bedside Urine Glucose (UA) 0.1% (NEGATIVE) Bedside Urine Ketones (LAB) Negative (NEGATIVE) Bedside Urine Blood Negative (NEGATIVE) Bedside Urine Nitrite (LAB) Negative (NEGATIVE) Bedside Urine Leukocyte Esterase (L Negative (NEGATIVE) Test 07/23/16 01:35 07/23/16 03:36 07/23/16 11:35 Blood Gas Specimen Source Blood arterial Arterial Blood Date Drawn 07/23/2016 1:47:20 AM Arterial Blood pH (Temp corrected) 7.338 (7.350-7.450) Arterial Blood pCO2 (Temp correct) 50.8mmhg (35-45) Arterial Blood pO2 (Temp corrected) 68.7mmHG (80-100.0) Arterial Blood HCO3 26.7mmol/L (22.0-26.0) Arterial Blood Base Excess -0.1mmol/L (-3.0-3) Arterial Blood Oxygen Saturation 92.4mmHG (95.0-98.0) Kevin Test ACCEPTAB Arterial Blood Gas Puncture Site Right Radial Arterial Blood Carboxyhemoglobin 2.5% (0.0-3.0) Arterial Blood Methemoglobin 0.3% (0.0-1.5) Blood Gas A-a O2 Differential 63.7mmHg (7.0-24.0) Oxyhemoglobin Percent 89.8% (93.0-99.0) Total Hemoglobin 16.8g/dl (12.0-18.0) Blood Gas Temperature 37.0C Blood Gas Modality NASAL CANNULA FiO2 27.0% Blood Gas Notified Whom AA Blood Gas Notified Time 07/23/2016 2:00:00 AM Lactic Acid Level 1.6mmol/L (0.5-2.2) Creatine Kinase 328IU/L (23-200) 340IU/L (23-200) Creatine Kinase Index 6.9 6.7 Creatinine Kinase MB (Mass) 22.70ng/ml (0.0-2.4) 22.90ng/ml (0.0-2.4) Troponin I < 0.012ng/ml (0.00-0.12) < 0.012ng/ml (0.00-0.12) Microbiology Date/Time Source Procedure Growth Status 07/22/16 22:33 Catheter Urine Urine Culture - Preliminary NO GROWTH AFTER 24 HOURS Resulted JENNIFER MARCANO MD July 23, 2016 14:00
--- NOTE | 2016-07-23 15:22 | RADRPT ---
Echocardiogram Report Patient Name: HYUN BRYAN Gender: Male Date: 1960 Study Date: 23-Jul-2016 Computer Operations Supervisor: Denver Valenzuela [facility] Location: 5544 Height(Cm): 165 Weight(Kg): 129 BSA: 2.43 Ref. Physician: SAEED GARCIA Quality: Technically Difficult Study Procedures: Transthoracic echocardiogram with complete 2D, M-Mode, and doppler examination. Indications: Chest Pain. 2D/M Mode Doppler Measurement Value Normal Ranges Measurement Value Normal Ranges LVIDd 2D 4.6 3.5 - 5.6 cm AV Peak Des 1.6 m/sec LVIDs 2D 2.1 2.1 - 4.1 cm AV Peak PG 10.0 mmHg FS 2D 53.5 % LVOT Peak Des 1.0 m/sec LVPWd 2D 1.4 0.6 - 1.1 cm LVOT Peak PG 4.0 mmHg IVSd 2D 1.3 0.6 - 1.1 cm MV E Peak Des 0.8 m/sec IVS/LVPW 2D 0.9 MV A Peak Des 1.1 m/sec AoR Diam 2D 3.0 2.0 - 3.7 cm MV E/A 0.8 LA/Ao 2D 1 0 - 1 MV Decel Time 134 msec EDV 2D 94.8 cm3 MV E/A 0.8 ESV 2D 9.5 cm3 TR Peak Des 2.0 m/sec LA Dimen 2D 3.8 2.3 - 4.0 cm TR Peak PG 16.0 mmHg RVSP 19.0 mmHg Findings Left Ventricle: Normal left ventricular systolic function. Normal left ventricular cavity size. Moderate concentric left ventricular hypertrophy. Ejection fraction is visually estimated at 60 %. Tissue Doppler/Mitral Doppler indices are consistent with impaired relaxation (Stage I diastolic dysfunction). Right Ventricle: Normal right ventricular systolic function. Not well visualized. Left Atrium: There is mild enlargement of left atrium. Right Atrium: The right atrium is normal in size. Mitral Valve: Normal appearance and function of the mitral valve with trace physiologic regurgitation. Aortic Valve: Normal appearance of the aortic valve. No significant aortic stenosis or insufficiency. Tricuspid Valve: Normal appearance of the tricuspid valve. Estimated peak PA systolic pressure 19 mmHg. There is trace tricuspid regurgitation. Pulmonic Valve: Pulmonic valve not well visualized. There is trace pulmonic regurgitation. Pericardium: Trivial pericardial effusion. Aorta: Normal aortic root. IVC: Normal size and normal respiratory collapse consistent with normal right atrial pressure. Conclusions Normal left ventricular systolic function. Normal left ventricular cavity size. Moderate concentric left ventricular hypertrophy. Ejection fraction is visually estimated at 60 %. Tissue Doppler/Mitral Doppler indices are consistent with impaired relaxation (Stage I diastolic dysfunction). No significant valvular stenosis or regurgitation seen. Estimated peak PA systolic pressure 19 mmHg based on RA pressure of 3 mmHg. Electronically Signed By: Milton Dale 23-Jul-2016 15:21:38 -0700 Patient Name: HYUN BRYAN Study Date: 23-Jul-2016 [id number]
== END 2016-07-23 13:30 | disposition left against medical advice (07) | DRG 390 ==
LOC: E/R 20:47 → MS4 07-23 00:47
PROVIDERS: ADMIT Family Medicine; ATTEND Family Medicine
DX: K56.7 Ileus, unspecified (principal); I10 Essential (primary) hypertension; I25.10 Atherosclerotic heart disease of native coronary artery without angina pectoris; G47.30 Sleep apnea, unspecified; F17.200 Nicotine dependence, unspecified, uncomplicated; R07.9 Chest pain, unspecified
CPT/HCPCS: 36600; 71010; 74176; 80053; 81001; 81003; 82550; 82553; 82803; 83605; 83690; 83880; 84484; 85025; 85610; 85730; 87040; 87086; 93005; 93306; 96374; 96375; C9113; J1650; J2270; J2405; J2543; J7030

== ENCOUNTER 2016-09-06 12:50 | Emergency (ER) | payer BC ==
[~2016-09-06] VITALS: Wt 130.0 kg
[~2016-09-06 12:50] MED LIST: ASPI-664 PO; DICL75TA2 PO; IBUP800T25 PO; ISOS60TA PO
[2016-09-06] MEDS ORDERED: KETOROLAC 60 MG INJ IM STA (14:17)
[2016-09-06] MEDS ORDERED: HYDROCODONE/APAP (10/325) TAB PO ONE (14:30)
--- NOTE | 2016-09-06 16:21 | RADRPT ---
PROCEDURE: XR Left Foot. CLINICAL INDICATION: Left foot pain. TECHNIQUE: Three views. Frontal, lateral, and oblique. COMPARISON: None. FINDINGS: There is no fracture or dislocation. The soft tissues are normal. Articular surfaces are intact. There is no lytic or blastic lesion. There is no radiopaque foreign body. IMPRESSION: 1. Normal images of the left foot. 2. If there is clinical concern regarding plantar fasciitis, correlation with MRI of the foot is ad vised. RPTAT: QQ .Song Wheatley MD, MD Date Time Electronically viewed and signed by .Song Wheatley MD, on 09/06/2016 16:20 .R/
--- NOTE | 2016-09-06 16:21 | RADRPT ---
PROCEDURE: XR Left Ankle. CLINICAL INDICATION: Left ankle pain. TECHNIQUE: 3 views. Frontal, lateral, and oblique. COMPARISON: None. FINDINGS: There is no fracture or dislocation. There is diffuse soft tissue swelling. Articular surfaces are intact. There is no lytic or blastic lesion. There is no radiopaque foreign body. IMPRESSION: 1. Diffuse soft tissue swelling. 2. Otherwise normal images of the left ankle. RPTAT: QQ .Song Wheatley MD, MD Date Time Electronically viewed and signed by .Song Wheatley MD, MD on 09/06/2016 16:21 .R/
[2016-09-06] MEDS ORDERED: HYDR-906 PO (16:24)
[2016-09-06] MEDS ORDERED: NAPR-688 PO (16:24)
--- NOTE | 2016-09-06 16:44 | ERD ---
ER Documentation Chief Complaint Date/Time DATE: 09/06/16 TIME: 16:41 Chief Complaint LEFT LEG/FOOT PAIN HPI 56-year-old male presents for left foot pain began 3 days ago when he woke up. Pain is mostly in the bottom of his foot the front part of the heel. Also complains of some posterior ankle pain. Denies any traumatic injury. No fever and chills ROS All systems reviewed and are negative except as per history of present illness. Medications Home Meds Active Scripts Hydrocodone/Acetaminophen ([place] 5-325 Tablet) 1 Each Tablet, 1 EACH PO Q6 for SEVERE PAIN LEVEL 7-10, #14 TAB Prov:KASH LLOYD DO 09/06/16 Naproxen* (Naproxen*) 500 Mg Tablet, 500 MG PO BID Y for PAIN, #20 TAB Prov:KASH LLOYD DO 09/06/16 Reported Medications Ibuprofen* (Ibuprofen*) 800 Mg Tab, 800 MG PO Q6H, TAB 07/23/16 Isosorbide Mononitrate* (Isosorbide Mononitrate*) 60 Mg Tab.er.24h, 60 MG PO DAILY, TAB 07/23/16 Aspirin* (Aspirin* EC) 81 Mg Tablet.dr, 81 MG PO DAILY, TAB 07/23/16 Diclofenac Sodium* (Diclofenac Sodium*) 75 Mg Tablet.dr, 75 MG PO BID WITH MEALS , #60 TAB 07/23/16 Allergies Allergies: Coded Allergies: No Known Allergy (Unverified , 07/22/16) PMhx/Soc Medical and Surgical Hx: pt denies Medical Hx, pt denies Surgical Hx History of Surgery: Yes (INGUINAL HERNIA REPAIR) Anesthesia Reaction: No Hx Neurological Disorder: No Hx Respiratory Disorders: Yes Hx Cardiac Disorders: Yes (HTN) Hx Psychiatric Problems: No Hx Miscellaneous Medical Probl: No Hx Alcohol Use: Yes Hx Substance Use: No Hx Tobacco Use: No Smoking Status: Never smoker Physical Exam Vitals Vital Signs Date Time Temp Pulse Resp B/P Pulse Ox O2 Delivery O2 Flow Rate FiO2 09/06/16 12:57 97.8 97 20 180/87 98 Physical Exam Const: [] Mild distress, appears uncomfortable Head: Atraumatic Eyes: Normal Conjunctiva Ext: No cyanosis, tenderness to posterior ankle about the Achilles area, exquisite tenderness to the anterior part of the heel on the plantar surface of the foot and along the fascial band. No toe tenderness, no dorsal foot tenderness, no anterior ankle tenderness. Capillary refill less than once a Neur: Awake and alert Psych: Normal Mood and Affect Results 24 hrs Current Medications Medications (Trade) Dose Ordered Sig/Bhaskar Route PRN Reason Start Time Stop Time Status Last Admin Dose Admin Ketorolac Tromethamine (Toradol) 60 mg ONCE STAT IM 09/06/16 14:17 09/06/16 14:19 DC 09/06/16 14:40 Acetaminophen/ Hydrocodone Bitart ([place] (10/325)) 1 tab ONCE ONCE PO 09/06/16 14:30 09/06/16 14:31 DC 09/06/16 14:40 Procedures/MDM Foot pain likely secondary at least in the bottom of the foot plantar fasciitis. Patient was given Toradol 60 mg IM as well as a [place] pill which helped the pain significantly. Instructed him to obtain arch supports which are available at any drugstore for plantar fasciitis as well as see his primary care doctor next 2-3 days. I am discharging with naproxen to be taken for 1 week straight twice daily as well as [place] for severe pain. Also recommended podiatry follow-up. X-ray left foot ankle interpretation: I see no acute fracture dislocation, no definite heel spur, mild soft tissue swelling of ankle. Departure Diagnosis: Primary Impression: Plantar fasciitis of left foot Condition: Stable Patient Instructions: Treating Plantar Fasciitis Additional Instructions: Call your primary care doctor TOMORROW for an appointment during the next 2-3 days. Perhaps get a referral for a FOOD SERVICES MANAGER.. See the doctor sooner or return here if your condition worsens before your appointment time. KASH LLOYD DO Sep 06, 2016 16:44
== END 2016-09-06 16:55 | disposition home or self-care (01) ==
LOC: E/R 12:50
DX: M72.2 Plantar fascial fibromatosis (principal); I10 Essential (primary) hypertension; Z79.82 Long term (current) use of aspirin
CPT/HCPCS: 73610; 73630; 96372; J1885; Z7502; Z7610

== ENCOUNTER 2018-06-15 21:22 | Inpatient (IN) | payer BC ==
[~2018-06-15] VITALS: Ht 172.7 cm; Wt 136.3 kg
[~2018-06-15 21:22] MED LIST changes: -ASPI-664 PO; +ASPI-817 PO; +HYDR-4011 PO; +IBUP-1545 PO; -IBUP800T25 PO; +NAPR-688 PO
[2018-06-15] MEDS ORDERED: SOD CHLORIDE 0.9% 1,000 ML IV STA (21:31)
[2018-06-15] MEDS ORDERED: METHYLPREDNISOLONE 125 MG INJ IV STA (21:31)
[2018-06-15] MEDS ORDERED: ALBUTEROL 0.5% (NEB) 2.5 MG/0.5 ML AMP INH STA (21:31)
[2018-06-15] MEDS ORDERED: LEVALBUTEROL (NEB) 1.25 MG/0.5 ML AMP INH STA (21:31)
[2018-06-15] MEDS ORDERED: IPRATROPIUM (NEB) 0.5 MG/2.5 ML AMP INH STA (22:57)
--- NOTE | 2018-06-15 22:57 | ERD ---
ER Documentation Chief Complaint Chief Complaint [id number],from home,RUQ AP,SOB,denies CP HPI This is a 58-year-old Iranian speaking male that presents to the emergency department brought in by EMS after he developed a sudden onset of severe right upper quadrant abdominal pain. Indicated he was sitting outside and all of a sudden he coughed and developed the pain. He stated the abdominal pain is 10 out of 10 intensity. The pain radiated to his back. He felt nauseous. He began to experience severe difficulty breathing. He denies history of asthma or COPD but does smoke tobacco. He denies any recent travel. He has no chest pain or pressure that radiates to the neck arm back or jaw. EMS arrived and indicate the patient was diaphoretic, hypoxic satting at 80% and placed on high flow supplemental oxygen. The patient indicates roughly 1 year ago he did have a similar episode of difficulty breathing and had been discharged home with a machine which he stated he is never required to use in the past. ROS All systems reviewed and are negative except as per history of present illness. Medications Home Meds Active Scripts Hydrocodone/Acetaminophen ([place] 5-325 Tablet) 1 Each Tablet, 1 EACH PO Q6 for SEVERE PAIN LEVEL 7-10, #14 TAB Prov:GABINOPIEROKASH DO 09/06/16 Naproxen* (Naproxen*) 500 Mg Tablet, 500 MG PO BID PRN for PAIN, #20 TAB Prov:KASH LLOYD DO 09/06/16 Reported Medications Ibuprofen* (Ibuprofen*) 800 Mg Tab, 800 MG PO Q6H, TAB 07/23/16 Isosorbide Mononitrate* (Isosorbide Mononitrate*) 60 Mg Tab.er.24h, 60 MG PO DAILY, TAB 07/23/16 Aspirin* (Aspirin* EC) 81 Mg Tablet.dr, 81 MG PO DAILY, TAB 07/23/16 Diclofenac Sodium* (Diclofenac Sodium*) 75 Mg Tablet.dr, 75 MG PO BID WITH MEALS, #60 TAB 07/23/16 Allergies Allergies: Coded Allergies: No Known Allergy (Unverified , 07/22/16) PMhx/Soc History of Surgery: Yes (INGUINAL HERNIA REPAIR) Anesthesia Reaction: No Hx Neurological Disorder: No Hx Respiratory Disorders: Yes Hx Cardiac Disorders: Yes (HTN) Hx Psychiatric Problems: No Hx Miscellaneous Medical Probl: No Hx Alcohol Use: Yes Hx Substance Use: No Hx Tobacco Use: No Physical Exam Vitals Vital Signs Date Temp Pulse Resp B/P (MAP) Pulse Ox O2 O2 Flow FiO2 Time Delivery Rate 06/15/18 89 100 50 21:55 06/15/18 99 15 156/91 99 BIPAP 21:30 (112) 06/15/18 98.3 99 18 156/91 99 21:30 (112) Physical Exam Constitutional:Well-developed. Well-nourished. Patient in severe respiratory distress HEENT:Normocephalic. Atraumatic.Pupils were equal round reactive to light. Moist mucous membranes.No tonsillar exudates. Neck: No nuchal rigidity. No lymphadenopathy. No posterior cervical spine tenderness or step-offs. Respiratory: Patient using accessory muscles of respiration with wheezing on end auscultation bilaterally. Tachypneic. Unable to speak more than 2 or to time before becoming short of breath. Cardiovascular: Regular rate regular rhythm.No murmurs. No rubs were appreciated.S1, S2 normal. Distal pulses are palpable 2+ bilaterally. GI: Abdomen was obese so exam is limited due to body habitus. Tenderness in the right upper quadrant. No tenderness in the right lower quadrant . non Distended. No pulsatile abdominal masses or bruits. No rebound. No guarding. Bowel sounds were present and normal. Muscle skeletal: Full range of motion of both the upper and lower extremities bilaterally.Normal muscle tone.No assymetrical calf tenderness or swelling. Skin: Diaphoretic. No petechia, no purpura. No lesions on the palms or the soles of the feet. No maculopapular rash. NEURO: Patient was alert, awake, orientated x3.No facial droop. Gait not observed due to patient severe respiratory distress.Speech had regular rate and rhythm. No focal neurological deficits. Result Diagram: 06/15/[id number]/[id number] Results 24 hrs Laboratory Tests Test 06/15/18 21:40 06/15/18 21:49 06/15/18 22:20 06/15/18 22:30 White Blood 9.5 10^3/ul Count Red Blood Count 5.17 10^6/ul Hemoglobin 15.5 g/dl Hematocrit 46.6 % Mean Corpuscular 90.1 fl Volume Mean Corpuscular 30.0 pg Hemoglobin Mean Corpuscular 33.3 g/dl Hemoglobin Ewa nt Red Cell 13.5 % Distribution Width Platelet Count 234 10^3/UL Mean Platelet 11.1 fl Volume Immature 0.500 % Granulocytes % Neutrophils % 64.2 % Lymphocytes % 25.9 % Monocytes % 5.9 % Eosinophils % 2.8 % Basophils % 0.7 % Nucleated Red 0.0 /100WBC Blood Cells % Immature 0.050 10^3/ul Granulocytes # Neutrophils # 6.1 10^3/ul Lymphocytes # 2.5 10^3/ul Monocytes # 0.6 10^3/ul Eosinophils # 0.3 10^3/ul Basophils # 0.1 10^3/ul Nucleated Red 0.0 10^3/ul Blood Cells # Prothrombin Time 12.4 Sec Prothrombin Time 1.0 Ratio INR 0.91 International Normalized Ratio Activated 28.9 Sec Partial Thrombop last Time Bedside Glucose 151 mg/dL Urine Color YELLOW Urine Clarity CLEAR Urine pH 5.0 Urine Specific 1.020 [place] Urine Ketones NEGATIVE mg/dL Urine Nitrite NEGATIVE mg/dL Urine Bilirubin NEGATIVE mg/dL Urine NEGATIVE mg/dL Urobilinogen Urine Leukocyte NEGATIVE Isael/ul Esterase Urine Hemoglobin NEGATIVE mg/dL Urine Glucose 2+ mg/dL Urine Total NEGATIVE mg/dl Protein Sodium Level 140 mmol/L Potassium Level 4.4 mmol/L Chloride Level 106 mmol/L Carbon Dioxide 27 mmol/L Level Anion Gap 7 Blood Urea Pending Nitrogen Creatinine Pending Est Glomerular Pending Filtrat Rate mL/min Glucose Level Pending Calcium Level Pending Total Bilirubin Pending Direct Bilirubin Pending Indirect Pending Bilirubin Aspartate Amino Pending Transf (AST/SGOT ) Alanine Pending Aminotransferase (ALT/SGPT) Alkaline Pending Phosphatase Troponin I < 0.012 ng/ml B-Type Pending Natriuretic Peptide Total Protein Pending Albumin Pending Globulin Pending Albumin/Globulin Pending Ratio Amylase Level Pending Lipase Pending Current Medications Medications Dose Sig/Bhaskar Start Time Status Last (Trade) Ordered Route PRN Stop Time Admin Dose Reason Admin Sodium 1,000 ml @ Q1H STAT 06/15/18 DC 06/15/18 Chloride 1,000 mls/hr IV 21:31 21:59 06/15/18 22:30 Albuterol 10 mg ONCE STAT 06/15/18 DC 06/15/18 (Proventil INH 21:31 22:06 0.5% (Neb)) 06/15/18 21:34 5 mg ONCE STAT 06/15/18 DC Levalbuterol INH 21:31 (Xopenex 06/15/18 21:34 Neb) 125 mg ONCE STAT 06/15/18 DC 06/15/18 Methylprednis IV 21:31 21:59 olone Sodium 06/15/18 21:34 Succinate (Solu-Medrol) Ipratropium 1 mg ONCE STAT 06/15/18 DC [place] INH 22:57 (Atrovent 06/15/18 22:58 0.02% (Neb)) Procedures/MDM This patient presented to the emergency department with abdominal pain and was seen and evaluated by myself. My differential diagnosis included but was not limited to abdominal aortic aneurysm, appendicitis, pancreatitis, perforated peptic ulcer, perforated viscus, Boerhaave's syndrome or visceral pain such as diverticulitis, DKA, esophagitis, hepatitis or bowel obstruction. The patient was placed on a quality assurance monitor final, continuous pulse oximetry, and IV access was established by nursing staff. The patient was in severe respiratory distress and immediately was placed on noninvasive mechanical ventilation through BiPAP. The patient's pulse oximetry had significantly improved. He also had improved his hypoxia when placed on a nonrebreather by EMS. Initially he was satting in the low 80s and after being placed on a nonrebreather his pulse ox improved to 90%. He was given nebulizer treatments of albuterol and Atrovent. Chest radiograph were reviewed by myself the radiologist indicate the following: Mild cardiomegaly with mild pulmonary vascular congestion. Bibasilar subsegmental atelectasis. I did feel the patient's respiratory distress was likely result of new onset congestive heart failure. The patient was also complaining of severe abdominal pain and I did feel is necessary to obtain a CT scan of the abdomen. The patient had received fentanyl in route by EMS with minimal improvement of his pain and therefore received Dilaudid and Zofran in the emergency department. I obtained a 12-lead EKG tracing to rule out for atypical myocardial infarction. 12 Lead EKG tracing ordered and reviewed by myself showed: Sinus tachycardia 102 bpm and no arrhythmia. [place] interval normal. Frequent PVCs. Left axis deviation. QRS duration normal. No ST segment elevation No ST segment depression. No changes consistent with acute ischemia. Patient will be admitted in serious condition to the hospitalist to the telemetry service. Critical Care: Time: 80 minutes Treatments/Evaluations: Close monitoring and treatment of unstable vital signs, cardiorespiratory, and neurologic status, while maintaining tight balance of fl uid, respiratory, and cardiac interventions. Time does not include performing any of the above billable procedures. Departure Diagnosis: Primary Impression: Respiratory distress Additional Impressions: PVC (premature ventricular contraction) CHF (congestive heart failure) Heart failure type: unspecified Heart failure chronicity: acute Qualified Codes: I50.9 - Heart failure, unspecified Condition: Serious LEISA MARIANO MD Jun 15, 2018 22:57
[2018-06-15] MEDS ORDERED: SOD CHLORIDE 0.9% 100 ML ONE (23:20)
[2018-06-15] MEDS ORDERED: IOHEXOL 300MG/ML 150 ML BTL ONE (23:20)
[2018-06-15] MEDS ORDERED: FUROSEMIDE 40 MG INJ IV ONE (23:30)
[2018-06-15] MEDS ORDERED: HYDROmorphONE 2 MG/ML SYG IV STA (23:55)
[2018-06-15] MEDS ORDERED: ONDANSETRON 4 MG INJ IV STA (23:55)
[2018-06-15] MEDS ORDERED: LISI10TA2 PO (23:58)
[2018-06-15] MEDS ORDERED: AMLO1CAP14 PO (23:58)
[2018-06-15] MEDS ORDERED: METO-335 PO (23:58)
[2018-06-15] MEDS ORDERED: SITA1TAB PO (23:58)
[2018-06-15] MEDS ORDERED: ATOR20TA65 PO (23:58)
[2018-06-16] VITALS (7 sets, daily range): BP systolic 137–144; BP diastolic 70–73; PULSE 86–104; RESP 20–21; Ht 172.7 cm; Wt 136.3 kg
--- NOTE | 2018-06-16 04:31 | EN ---
Date/Time of Note Date/Time of Note DATE: 06/16/18 TIME: 04:30 ER Progress Note Patient refused CT scan. Advised of risks of refusing CT scan. Patient was ANO times while patient refused CT scan. Patient will be admitted to hospitalist. ANDREE COFFMAN Jun 16, 2018 04:31
[2018-06-16] MEDS ORDERED: ACETAMINOPHEN 325 MG TAB PO PRN (06:30)
[2018-06-16] MEDS ORDERED: HYDROCODONE/APAP (5/325) TAB PO PRN ×2 (06:30)
[2018-06-16] MEDS ORDERED: ALBUTEROL/IPRATROPIUM (NEB) 3 ML AMP HHN PRN (06:30)
[2018-06-16] MEDS ORDERED: NACL 0.9% 3 ML SYG IV SCH (06:30)
[2018-06-16] MEDS ORDERED: ONDANSETRON 4 MG INJ IV PRN (06:30)
--- NOTE | 2018-06-16 07:27 | HP ---
Date/Time of Note Date/Time of Note DATE: 06/16/18 TIME: 07:26 Assessment/Plan VTE Prophylaxis Pharmacological prophylaxis: heparin Lines/Catheters IV Catheter Type (from Nrsg): [place] Assessment/Plan Assessment/Plan 1. Hypoxic and hypercapnic restorative failure: Secondary to DANILO and COPD -Supplemental oxygen, bronchodilators, steroid -As needed BiPAP -Pulmonary consult -Repeat ABG 2. Right upper quadrant abdominal pain: Ultrasound shows dilated CBD without cholelithiasis or cholecystitis -I have ordered MRCP. Note however that patient refused CT in the ER -GI consult 3. Diabetes: Continue home med 4. Hypertension: Adjust antihypertensive as needed 5. Dyslipidemia: Continue statin Result Diagram: 06/15/18 2140 06/15/18 2230 Results 24hrs Laboratory Tests Test 06/15/18 21:40 06/15/18 21:49 06/15/18 22:20 06/15/18 22:30 White Blood Count 9.5 Red Blood Count 5.17 Hemoglobin 15.5 Hematocrit 46.6 Mean Corpuscular 90.1 Volume Mean Corpuscular 30.0 Hemoglobin Mean Corpuscular 33.3 Hemoglobin Concen t Red Cell 13.5 Distribution Width Platelet Count 234 Mean Platelet 11.1 H Volume Immature 0.500 H Granulocytes % Neutrophils % 64.2 Lymphocytes % 25.9 Monocytes % 5.9 Eosinophils % 2.8 Basophils % 0.7 Nucleated Red 0.0 Blood Cells % Immature 0.050 H Granulocytes # Neutrophils # 6.1 Lymphocytes # 2.5 Monocytes # 0.6 Eosinophils # 0.3 Basophils # 0.1 Nucleated Red 0.0 Blood Cells # Prothrombin Time 12.4 Prothrombin Time 1.0 Ratio INR International 0.91 Normalized Ratio Activated 28.9 Partial Thrombopl ast Time Bedside Glucose 151 Urine Color YELLOW Urine Clarity CLEAR Urine pH 5.0 Urine Specific 1.020 [place] Urine Ketones NEGATIVE Urine Nitrite NEGATIVE Urine Bilirubin NEGATIVE Urine NEGATIVE Urobilinogen Urine Leukocyte NEGATIVE Esterase Urine Hemoglobin NEGATIVE Urine Glucose 2+ H Urine Total NEGATIVE Protein Sodium Level 140 Potassium Level 4.4 Chloride Level 106 Carbon Dioxide 27 Level Anion Gap 7 Blood Urea 20 Nitrogen Creatinine 1.14 Est Glomerular > 60 Filtrat Rate mL/min Glucose Level 160 Calcium Level 8.9 Total Bilirubin 0.2 Direct Bilirubin 0.00 Indirect 0.2 Bilirubin Aspartate Amino 30 Transf (AST/SGOT) Alanine 38 Aminotransferase (ALT/SGPT) Alkaline 98 Phosphatase Troponin I < 0.012 B-Type 64 Natriuretic Peptide Total Protein 6.9 Albumin 3.8 Globulin 3.10 Albumin/Globulin 1.22 Ratio Amylase Level 88 Lipase 74 Test 06/16/18 01:20 Blood Gas Blood arterial Specimen Source Arterial Blood 06/16/2018 1:15:5 Date Drawn 5 AM Arterial Blood pH 7.273 *L (Temp corrected) Arterial Blood 56.3 H pCO2 (Temp correct) Arterial Blood 117.0 H pO2 (Temp corrected) Arterial Blood 25.4 HCO3 Arterial Blood -2.6 Base Excess Arterial Blood 97.5 Oxygen Saturation Kevin Test N/A Arterial Blood Right Radial Gas Puncture Site Arterial 2.6 Blood Carboxyhemo globin Arterial Blood 0.3 Methemoglobin Blood Gas A-a O2 539.7 H Differential Oxyhemoglobin 94.7 Percent Blood Gas 37.0 Temperature Blood Gas MASK - NRB Modality FiO2 100.0 Blood Gas D AUGUSTUS DAVIS Critical Value Read Back Blood Gas UP Notified Whom Blood Gas 06/16/2018 1:29:0 Notified Time 5 AM HPI/ROS Admit Date/Time Admit Date/Time Hx of Present Illness This is a 58-year-old morbidly obese male with a history of hypertension, diabetes, dyslipidemia, DANILO, COPD who presents to the ER complaining of shortness of breath and abdominal pain. He said he started having cough followed by shortness of breath and abdominal pain. Abdominal pain is mainly localized in the right upper quadrant area. Patient is currently on BiPAP. He is Vincentian speaking only and so is his and as such gathering information has been difficult. Patient however pointed in the right upper quadrant area and on palpation is tender. Patient was hypoxic with oxygen saturation in the 80s. ABG shows a pH of 7.27 and PCO2 of 56. Chest x-ray shows mild pulmonary vascular congestion and bilateral subsegmental atelectasis. Abdominal ultrasound shows dilated CBD without cholelithiasis or cholecystitis. He refused CT of abdomen/pelvis. PMH/Family/Social Past Medical History Past Surgical History Past Surgical Hx: other Family History Significant Family History: no pertinent family hx Social History Alcohol Use: other Smoking Status: Unknown if ever smoked Drug Use: other Exam Constitutional: other (no acute distress) Head: normocephalic ENMT: nl external ears & nose Neck: supple Respiratory: normal air movement Cardiovascular: nl pulses Gastrointestinal: soft Extremities: normal pulses Medications Current Medications IV Flush (NS 3 ml) 3 ml PER PROTOCOL IV ; Start 06/16/18 at 06:30 Ondansetron HCl (Zofran Inj) 4 mg Q6H PRN IV NAUSEA/VOMITING; Start 06/16/18 at 06:30 Acetaminophen (Tylenol Tab) 650 mg Q6H PRN PO .PAIN 1-3 OR TEMP; Start 06/16/18 at 06:30 Acetaminophen/ Hydrocodone Bitart ([place] (5/325)) 1 tab Q6H PRN PO .PAIN 4-6; Start 06/16/18 at 06:30 Acetaminophen/ Hydrocodone Bitart ([place] (5/325)) 2 tab Q6H PRN PO .PAIN 7-10; Start 06/16/18 at 06:30 Heparin Sodium (Porcine) (Heparin (5000 Units/1ml)) 5,000 unit Q12 SC ; Start 06/16/18 at 09:00 Albuterol/ Ipratropium (Duoneb) 3 ml Q2H RESP THERAPY PRN HHN SHORTNESS OF BREATH; Start 06/16/18 at 06:30 Aspirin (Halfprin) 81 mg DAILY PO ; Start 06/16/18 at 09:00 Atorvastatin Calcium (Lipitor) 20 mg QHS PO ; Start 06/16/18 at 21:00 Diclofenac Sodium (Voltaren) 75 mg BID WITH MEALS PO ; Start 06/16/18 at 08:00 Isosorbide Mononitrate (Imdur) 60 mg DAILY PO ; Start 06/16/18 at 09:00 Lisinopril (Zestril) 10 mg DAILY PO ; Start 06/16/18 at 09:00 Metoprolol Succinate (Toprol Xl) 25 mg DAILY PO ; Start 06/16/18 at 09:00 Methylprednisolone Sodium Succinate (Solu-Medrol) 40 mg DAILY IV ; Start 06/16/18 at 09:00 Linagliptin (Tradjenta) 5 mg DAILY PO ; Start 06/16/18 at 09:00 Metformin HCl (Glucophage) 500 mg DAILY PO ; Start 06/16/18 at 09:00 Miscellaneous Information 1 ea NOTE XX ; Start 06/16/18 at 07:30 Glucose (Glutose) 15 gm Q15M PRN PO DECREASED GLUCOSE; Start 06/16/18 at 07:30 Glucose (Glutose) 22.5 gm Q15M PRN PO DECREASED GLUCOSE; Start 06/16/18 at 07:30 Dextrose (D50w Syringe) 25 ml Q15M PRN IV DECREASED GLUCOSE; Start 06/16/18 at 07:30 Dextrose (D50w Syringe) 50 ml Q15M PRN IV DECREASED GLUCOSE; Start 06/16/18 at 07:30 Glucagon (Glucagen) 1 mg Q15M PRN IM DECREASED GLUCOSE; Start 06/16/18 at 07:30 Glucose (Glutose) 15 gm Q15M PRN BUCCAL DECREASED GLUCOSE; Start 06/16/18 at 07:30 Coded Allergies: No Known Allergy (Unverified , 06/15/18) Social History Smoking Status: Never smoker Exam/Review of Systems Vital Signs Vitals Vital Signs Date Temp Pulse Resp B/P (MAP) Pulse Ox O2 O2 Flow FiO2 Time Delivery Rate 06/16/18 96 16 143/75 97 06:39 (97) 06/16/18 BIPAP 06:24 06/16/18 50 05:51 06/16/18 15.0 00:19 06/15/18 98.3 21:30 ANDREE MILLARD MD Jun 16, 2018 07:27
[2018-06-16] MEDS ORDERED: GLUCOSE GEL 15 GRAM TUBE BUCCAL PRN (07:30)
[2018-06-16] MEDS ORDERED: GLUCAGON 1 MG INJ IM PRN (07:30)
[2018-06-16] MEDS ORDERED: DEXTROSE 50% 50 ML SYRINGE IV PRN ×2 (07:30)
[2018-06-16] MEDS ORDERED: GLUCOSE GEL 15 GRAM TUBE PO PRN ×2 (07:30)
[2018-06-16] MEDS ORDERED: METHYLPREDNISOLONE 40 MG INJ IV SCH (09:00)
[2018-06-16] MEDS ORDERED: LINAGLIPTIN 5 MG TABLET PO SCH (09:00)
[2018-06-16] MEDS ORDERED: metFORMIN 500 MG TAB PO SCH ×2 (09:00→12:00)
[2018-06-16] MEDS ORDERED: NON-FORMULARY/PATIENT OWN MED (Sitagliptin Phos/Metformin HCl (Janumet 50-500 mg Tablet) 1 PO SCH (09:00)
[2018-06-16] MEDS: ISOSORBIDE MONONITRATE(SR)60 MG TAB PO SCH (11:58)
[2018-06-16] MEDS: DICLOFENAC (EC) 75 MG TAB PO SCH ×2 (11:59→20:24)
[2018-06-16] MEDS: METOPROLOL (XL) 25 MG TAB PO SCH (11:59)
[2018-06-16] MEDS: LISINOPRIL 10 MG TAB PO SCH (12:00)
[2018-06-16] MEDS: ASPIRIN (EC) 81 MG TAB PO SCH (12:11)
[2018-06-16] MEDS: HEPARIN 5,000 UNIT/1 ML VIAL SC SCH ×2 (12:11→21:26)
--- NOTE | 2018-06-16 12:58 | PN ---
Date/Time of Note Date/Time of Note DATE: 06/16/18 TIME: 12:49 Assessment/Plan VTE Prophylaxis Pharmacological prophylaxis: heparin Lines/Catheters IV Catheter Type (from Nrsg): Saline Lock Assessment/Plan Assessment/Plan 1. COPD exacerbation, neb, antibiotics, SoluMedrol 2. Respiratory failure, respiratory acidosis, on BiPAP and O2 3. Sleep apnea, on BiPAP 4. Right upper quadrant abdominal pain, Ultrasound shows dilated CBD without cholelithiasis or cholecystitis, normal LFTs, clinically observation 5. Diabetes mellitus, lantus and ISS 6. Hypertension: Adjust antihypertensive as needed 7. Dyslipidemia: Continue statin 8. DVT prophylaxis: heparin Result Diagram: 06/16/18 0818 06/16/18 0818 Results 24hrs Laboratory Tests Test 06/15/18 21:40 06/15/18 21:49 06/15/18 22:20 06/15/18 22:30 White Blood 9.5 Count Red Blood Count 5.17 Hemoglobin 15.5 Hematocrit 46.6 Mean Corpuscular 90.1 Volume Mean Corpuscular 30.0 Hemoglobin Mean Corpuscular 33.3 Hemoglobin Ewa nt Red Cell 13.5 Distribution Width Platelet Count 234 Mean Platelet 11.1 H Volume Immature 0.500 H Granulocytes % Neutrophils % 64.2 Lymphocytes % 25.9 Monocytes % 5.9 Eosinophils % 2.8 Basophils % 0.7 Nucleated Red 0.0 Blood Cells % Immature 0.050 H Granulocytes # Neutrophils # 6.1 Lymphocytes # 2.5 Monocytes # 0.6 Eosinophils # 0.3 Basophils # 0.1 Nucleated Red 0.0 Blood Cells # Prothrombin Time 12.4 Prothrombin Time 1.0 Ratio INR 0.91 International Normalized Ratio Activated 28.9 Partial Thrombop last Time Bedside Glucose 151 Urine Color YELLOW Urine Clarity CLEAR Urine pH 5.0 Urine Specific 1.020 Porter Urine Ketones NEGATIVE Urine Nitrite NEGATIVE Urine Bilirubin NEGATIVE Urine NEGATIVE Urobilinogen Urine Leukocyte NEGATIVE Esterase Urine Hemoglobin NEGATIVE Urine Glucose 2+ H Urine Total NEGATIVE Protein Sodium Level 140 Potassium Level 4.4 Chloride Level 106 Carbon Dioxide 27 Level Anion Gap 7 Blood Urea 20 Nitrogen Creatinine 1.14 Est Glomerular > 60 Filtrat Rate mL/min Glucose Level 160 Calcium Level 8.9 Total Bilirubin 0.2 Direct Bilirubin 0.00 Indirect 0.2 Bilirubin Aspartate Amino 30 Transf (AST/SGOT ) Alanine 38 Aminotransferase (ALT/SGPT) Alkaline 98 Phosphatase Troponin I < 0.012 B-Type 64 Natriuretic Peptide Total Protein 6.9 Albumin 3.8 Globulin 3.10 Albumin/Globulin 1.22 Ratio Amylase Level 88 Lipase 74 Test 06/16/18 01:20 06/16/18 08:18 06/16/18 09:01 Blood Gas Blood arterial Blood arterial Specimen Source Arterial Blood 06/16/2018 1:15: 06/16/2018 9:12: Date Drawn 55 AM 22 AM Arterial Blood 7.273 *L 7.290 *L pH (Temp corrected) Arterial Blood 56.3 H 57.1 H pCO2 (Temp correct) Arterial Blood 117.0 H 75.8 L pO2 (Temp corrected) Arterial Blood 25.4 26.8 H HCO3 Arterial Blood -2.6 -1.1 Base Excess Arterial Blood 97.5 94.1 L Oxygen Saturatio n Kevin Test N/A ACCEPTAB Arterial Blood Right Radial Right Radial Gas Puncture Site Arterial 2.6 1.3 Blood Carboxyhem oglobin Arterial Blood 0.3 0.3 Methemoglobin Blood Gas A-a O2 539.7 H 143.7 H Differential Oxyhemoglobin 94.7 92.6 L Percent Blood Gas 37.0 37.0 Temperature Blood Gas MASK - NRB MASK - BIPAP Modality FiO2 100.0 40.0 Blood Gas D AUGUSTUS Mora RN Critical Value Read Back Blood Gas UP [place] Wisdom Notified Whom Blood Gas 06/16/2018 1:29: 06/16/2018 9:18: Notified Time 05 AM 22 AM White Blood 9.2 Count Red Blood Count 5.33 Hemoglobin 15.9 Hematocrit 48.6 Mean Corpuscular 91.2 Volume Mean Corpuscular 29.8 Hemoglobin Mean Corpuscular 32.7 Hemoglobin Ewa nt Red Cell 13.3 Distribution Width Platelet Count 206 Mean Platelet 10.3 Volume Immature 0.500 H Granulocytes % Neutrophils % 90.6 H Lymphocytes % 7.9 L Monocytes % 0.7 Eosinophils % 0.1 Basophils % 0.2 Nucleated Red 0.0 Blood Cells % Immature 0.050 H Granulocytes # Neutrophils # 8.3 H Lymphocytes # 0.7 L Monocytes # 0.1 L Eosinophils # 0.0 Basophils # 0.0 Nucleated Red 0.0 Blood Cells # Sodium Level 142 Potassium Level 5.1 Chloride Level 105 Carbon Dioxide 26 Level Anion Gap 11 Blood Urea 24 H Nitrogen Creatinine 0.84 Est Glomerular > 60 Filtrat Rate mL/min Glucose Level 285 #H Hemoglobin A1c 7.7 H Calcium Level 9.2 Total Bilirubin 0.1 L Direct Bilirubin 0.00 Indirect 0.1 Bilirubin Aspartate Amino 33 Transf (AST/SGOT ) Alanine 40 Aminotransferase (ALT/SGPT) Alkaline 110 Phosphatase Total Protein 7.7 Albumin 4.5 Globulin 3.20 Albumin/Globulin 1.40 Ratio Triglycerides 87 Level Cholesterol 237 H Level LDL Cholesterol, 167 Calculated HDL Cholesterol 53 Cholesterol/HDL 4.4 Ratio Blood Gas 16.0 Respiration Rate Blood Gas Actual 16 Respiration Rate Blood Gas 13 Pressure Support Blood Gas 18/5 IPAP/EPAP Ratio Subjective 24 Hr Interval Summary Free Text/Dictation shortness of breath, right lower chest pain is much less today Exam/Review of Systems Exam Vitals Vital Signs Date Temp Pulse Resp B/P (MAP) Pulse Ox O2 O2 Flow FiO2 Time Delivery Rate 06/16/18 96 96 50 10:12 06/16/18 126/84 BIPAP 09:40 (98) 06/16/18 15.0 00:19 06/15/18 98.3 21:30 Constitutional: alert, oriented, well developed, obese Head: normocephalic, atraumatic Eyes: nl conjunctiva, EOMI, nl lids ENMT: nl external ears & nose, nl lips & teeth, nl nasal mucosa & septum Neck: supple, non-tender Respiratory: diminished breath sounds Cardiovascular: regular rate and rhythm, nl pulses; No bruits, No diastolic murmur, No edema, No gallop, No irregular rhythm, No jugular venous distention (JVD), No murmurs/extra sounds, No rub, No systolic murmur, No S3, No S4, No other Gastrointestinal: soft, nl liver, spleen, non-tender Musculoskeletal: nl extremities to inspection Extremities: normal pulses; No calf tenderness, No cyanosis, No clubbing, No edema, No pitting pedal edema, No palpable cord, No tenderness, No other Neurological: [employer] II-XII intact, nl mental status, nl speech, nl strength Results Results 24hrs Laboratory Tests Test 06/15/18 21:40 06/15/18 21:49 06/15/18 22:20 06/15/18 22:30 White Blood 9.5 Count Red Blood Count 5.17 Hemoglobin 15.5 Hematocrit 46.6 Mean Corpuscular 90.1 Volume Mean Corpuscular 30.0 Hemoglobin Mean Corpuscular 33.3 Hemoglobin Ewa nt Red Cell 13.5 Distribution Width Platelet Count 234 Mean Platelet 11.1 H Volume Immature 0.500 H Granulocytes % Neutrophils % 64.2 Lymphocytes % 25.9 Monocytes % 5.9 Eosinophils % 2.8 Basophils % 0.7 Nucleated Red 0.0 Blood Cells % Immature 0.050 H Granulocytes # Neutrophils # 6.1 Lymphocytes # 2.5 Monocytes # 0.6 Eosinophils # 0.3 Basophils # 0.1 Nucleated Red 0.0 Blood Cells # Prothrombin Time 12.4 Prothrombin Time 1.0 Ratio INR 0.91 International Normalized Ratio Activated 28.9 Partial Thrombop last Time Bedside Glucose 151 Urine Color YELLOW Urine Clarity CLEAR Urine pH 5.0 Urine Specific 1.020 Porter Urine Ketones NEGATIVE Urine Nitrite NEGATIVE Urine Bilirubin NEGATIVE Urine NEGATIVE Urobilinogen Urine Leukocyte NEGATIVE Esterase Urine Hemoglobin NEGATIVE Urine Glucose 2+ H Urine Total NEGATIVE Protein Sodium Level 140 Potassium Level 4.4 Chloride Level 106 Carbon Dioxide 27 Level Anion Gap 7 Blood Urea 20 Nitrogen Creatinine 1.14 Est Glomerular > 60 Filtrat Rate mL/min Glucose Level 160 Calcium Level 8.9 Total Bilirubin 0.2 Direct Bilirubin 0.00 Indirect 0.2 Bilirubin Aspartate Amino 30 Transf (AST/SGOT ) Alanine 38 Aminotransferase (ALT/SGPT) Alkaline 98 Phosphatase Troponin I < 0.012 B-Type 64 Natriuretic Peptide Total Protein 6.9 Albumin 3.8 Globulin 3.10 Albumin/Globulin 1.22 Ratio Amylase Level 88 Lipase 74 Test 06/16/18 01:20 06/16/18 08:18 06/16/18 09:01 Blood Gas Blood arterial Blood arterial Specimen Source Arterial Blood 06/16/2018 1:15: 06/16/2018 9:12: Date Drawn 55 AM 22 AM Arterial Blood 7.273 *L 7.290 *L pH (Temp corrected) Arterial Blood 56.3 H 57.1 H pCO2 (Temp correct) Arterial Blood 117.0 H 75.8 L pO2 (Temp corrected) Arterial Blood 25.4 26.8 H HCO3 Arterial Blood -2.6 -1.1 Base Excess Arterial Blood 97.5 94.1 L Oxygen Saturatio n Kevin Test N/A ACCEPTAB Arterial Blood Right Radial Right Radial Gas Puncture Site Arterial 2.6 1.3 Blood Carboxyhem oglobin Arterial Blood 0.3 0.3 Methemoglobin Blood Gas A-a O2 539.7 H 143.7 H Differential Oxyhemoglobin 94.7 92.6 L Percent Blood Gas 37.0 37.0 Temperature Blood Gas MASK - NRB MASK - BIPAP Modality FiO2 100.0 40.0 Blood Gas D AUGUSTUS Mora RN Critical Value Read Back Blood Gas UP [place] Wisdom Notified Whom Blood Gas 06/16/2018 1:29: 06/16/2018 9:18: Notified Time 05 AM 22 AM White Blood 9.2 Count Red Blood Count 5.33 Hemoglobin 15.9 Hematocrit 48.6 Mean Corpuscular 91.2 Volume Mean Corpuscular 29.8 Hemoglobin Mean Corpuscular 32.7 Hemoglobin Ewa nt Red Cell 13.3 Distribution Width Platelet Count 206 Mean Platelet 10.3 Volume Immature 0.500 H Granulocytes % Neutrophils % 90.6 H Lymphocytes % 7.9 L Monocytes % 0.7 Eosinophils % 0.1 Basophils % 0.2 Nucleated Red 0.0 Blood Cells % Immature 0.050 H Granulocytes # Neutrophils # 8.3 H Lymphocytes # 0.7 L Monocytes # 0.1 L Eosinophils # 0.0 Basophils # 0.0 Nucleated Red 0.0 Blood Cells # Sodium Level 142 Potassium Level 5.1 Chloride Level 105 Carbon Dioxide 26 Level Anion Gap 11 Blood Urea 24 H Nitrogen Creatinine 0.84 Est Glomerular > 60 Filtrat Rate mL/min Glucose Level 285 #H Hemoglobin A1c 7.7 H Calcium Level 9.2 Total Bilirubin 0.1 L Direct Bilirubin 0.00 Indirect 0.1 Bilirubin Aspartate Amino 33 Transf (AST/SGOT ) Alanine 40 Aminotransferase (ALT/SGPT) Alkaline 110 Phosphatase Total Protein 7.7 Albumin 4.5 Globulin 3.20 Albumin/Globulin 1.40 Ratio Triglycerides 87 Level Cholesterol 237 H Level LDL Cholesterol, 167 Calculated HDL Cholesterol 53 Cholesterol/HDL 4.4 Ratio Blood Gas 16.0 Respiration Rate Blood Gas Actual 16 Respiration Rate Blood Gas 13 Pressure Support Blood Gas 18/5 IPAP/EPAP Ratio Medications Medication Current Medications IV Flush (NS 3 ml) 3 ml PER PROTOCOL IV ; Start 06/16/18 at 06:30 Ondansetron HCl (Zofran Inj) 4 mg Q6H PRN IV NAUSEA/VOMITING; Start 06/16/18 at 06:30 Acetaminophen (Tylenol Tab) 650 mg Q6H PRN PO .PAIN 1-3 OR TEMP; Start 06/16/18 at 06:30 Acetaminophen/ Hydrocodone Bitart ([place] (5/325)) 1 tab Q6H PRN PO .PAIN 4-6; Start 06/16/18 at 06:30 Acetaminophen/ Hydrocodone Bitart ([place] (5/325)) 2 tab Q6H PRN PO .PAIN 7-10; Start 06/16/18 at 06:30 Heparin Sodium (Porcine) (Heparin (5000 Units/1ml)) 5,000 unit Q12 SC Last administered on 06/16/18 12:11; Admin Dose 5,000 UNIT; Start 06/16/18 at 09:00 Albuterol/ Ipratropium (Duoneb) 3 ml Q2H RESP THERAPY PRN HHN SHORTNESS OF BREATH; Start 06/16/18 at 06:30 Aspirin (Halfprin) 81 mg DAILY PO Last administered on 06/16/18 12:11; Admin Dose 81 MG; Start 06/16/18 at 09:00 Atorvastatin Calcium (Lipitor) 20 mg QHS PO ; Start 06/16/18 at 21:00 Diclofenac Sodium (Voltaren) 75 mg BID WITH MEALS PO Last administered on 06/16/18 11:59; Admin Dose 75 MG; Start 06/16/18 at 08:00 Isosorbide Mononitrate (Imdur) 60 mg DAILY PO Last administered on 06/16/18 11:58; Admin Dose 60 MG; Start 06/16/18 at 09:00 Lisinopril (Zestril) 10 mg DAILY PO Last administered on 06/16/18at 12:00; Admin Dose 10 MG; Start 06/16/18 at 09:00 Metoprolol Succinate (Toprol Xl) 25 mg DAILY PO Last administered on 06/16/18 11:59; Admin Dose 25 MG; Start 06/16/18 at 09:00 Methylprednisolone Sodium Succinate (Solu-Medrol) 40 mg DAILY IV Last administered on 06/16/18 12:11; Admin Dose 40 MG; Start 06/16/18 at 09:00 Miscellaneous Information 1 ea NOTE XX ; Start 06/16/18 at 07:30 Glucose (Glutose) 15 gm Q15M PRN PO DECREASED GLUCOSE; Start 06/16/18 at 07:30 Glucose (Glutose) 22.5 gm Q15M PRN PO DECREASED GLUCOSE; Start 06/16/18 at 07:30 Dextrose (D50w Syringe) 25 ml Q15M PRN IV DECREASED GLUCOSE; Start 06/16/18 at 07:30 Dextrose (D50w Syringe) 50 ml Q15M PRN IV DECREASED GLUCOSE; Start 06/16/18 at 07:30 Glucagon (Glucagen) 1 mg Q15M PRN IM DECREASED GLUCOSE; Start 06/16/18 at 07:30 Glucose (Glutose) 15 gm Q15M PRN BUCCAL DECREASED GLUCOSE; Start 06/16/18 at 07:30 Metformin HCl (Glucophage) 500 mg WITH BREAKFAST PO ; Start 06/16/18 at 12:00 VINNY VAZQUEZ MD Jun 16, 2018 12:58
[2018-06-16] MEDS ORDERED: INSULIN GLARGINE [LANTus] (100 UNITS/ML) SYG SC ONE (13:00)
[2018-06-16] MEDS: LEVOFLOXACIN 500MG/D5W (PMX) 100 ML IVPB SCH (13:36)
[2018-06-16] MEDS: ALBUTEROL/IPRATROPIUM (NEB) 3 ML AMP HHN SCH ×2 (14:17→19:38)
--- NOTE | 2018-06-16 14:22 | CONS ---
DATE OF ADMISSION: 06/15/2018 DATE OF CONSULTATION: TYPE OF CONSULTATION: Pulmonary. REASON FOR CONSULTATION: Shortness of breath. Thank you, Dr. Martinez, for this consultation. HISTORY OF PRESENT ILLNESS: This is a 58-year-old gentleman with a history of COPD on home O2, obstr uctive sleep apnea on home BiPAP, came in with increasing shortness of breath, orthopnea, PND, found to have mild hypercapnia on noninvasive positive pressure ventilation. Symptoms were sudden and the patient's family states he was well yesterday morning and increasing respiratory distress overnight. No fever or chills. No sick contacts. He has an extensive tobacco history. PAST MEDICAL HISTORY: 1. COPD. 2. Obstructive sleep apnea. 3. Morbid obesity. MEDICATIONS: Per chart. SOCIAL HISTORY: Previous tobacco history. No alcohol, no history of drug abuse. FAMILY HISTORY: Noncontributory. SYSTEMS REVIEW: A 12-point review of systems was negative other than that mentioned above. PHYSICAL EXAMINATION: GENERAL: Well-nourished, well-developed gentleman, comfortable at rest, in no acute distress. VITAL SIGNS: Currently afebrile, pulse is 100, blood pressure 124/84, O2 saturation 96% on FiO2 of 5 0%. NECK: Supple. No JVD or lymphadenopathy. CARDIAC: S1, S2. No added sounds or murmurs. CHEST: Diminished air entry bilaterally. ABDOMEN: Obese, soft, nontender. No guarding or rebound. EXTREMITIES: No cyanosis, clubbing, edema. NEUROLOGIC: Generalized weakness. No focal deficits. LABORATORIES: White count 9.2, hemoglobin 15.9, platelets of 206. Chemistry: BNP was 64. BUN 24, creatinine 0.8. INR 0.91. Arterial blood gas: pH 7.29, pCO2 of 57, pO2 of 75. IMPRESSION AND PLAN: 1. Likely diastolic dysfunction. 2. Acute tracheal bronchitis, possible chronic obstructive pulmonary disease exacerbation. 3. Morbid obesity. 4. Underlying history of obstructive sleep apnea and chronic obstructive pulmonary disease. The patient will require: 1. Steroid taper. 2. Bronchodilators. 3. Gentle diuresis. 4. DVT and GI prophylaxis. 5. Check procalcitonin for possible underlying infection. Dictated By: ART HARRINGTON/FRANKY Conf#: [id number] DID#: [id number] CC: JOE MEYER;*EndCC*
--- NOTE | 2018-06-16 15:47 | CONS ---
Assessment/Plan Assessment/Plan Hospital Course (Demo Recall) Summary Assessment and Plan: Assessment: Hepatomegaly with hepatic steatosis Proximal common bile duct mild dilation measuring 10.5 mm COPD exacerbation Morbid obesity Obstructive sleep apnea Plan: Monitor labs MRCP - when able to tolerate Pulmonary recommendations Patient seen in collaboration with Dr. Abrams CC: MILI ABRAMS MD ; Consultation Date/Type/Reason Admit Date/Time Date of Consultation: Jun 16, 2018 Type of Consult GI Reason for Consultation Abnormal imaging Date/Time of Note DATE: 06/16/18 TIME: 15:42 Hx of Present Illness This a 58-year-old male with past medical history of COPD on home O2, c obstructive sleep apnea on BiPAP at home who presented to the hospital with abdominal pain and shortness of breath. The patient had a gallbladder ultrasound which was noted to be limited as patient refused to maintain required positioning and was not able to follow breathing instructions but no evidence of cholelithiasis or acute cholecystitis there is moderate dilation of the visualized proximal common bile duct, hepatomegaly with diffuse hepatic steatosis no intra-hepatobiliary ductal dilation she has been consulted for further evaluation chemistry shows normal LFTs were normal coagulation as well as normal platelet and normal hemoglobin/hematocrit. A time evaluation patient is on a BiPAP unable to give detailed history therefore HPI is limited and information is obtained from previous medical records. Plan for MRCP when patient is able to to tolerate test pulmonology has been consulted follow-up on recommendations Subjective hx not possible: other (lethargic/ not able to verbalize Bipap in place) Past Medical History Home Meds Reported Medications Sitagliptin Phos/Metformin HCl (Janumet 50-500 mg Tablet) 1 Each Tablet, 1 TAB PO DAILY for 30 Days, #30 06/15/18 Amlodipine-Benazepril (Amlodipine-Benazepril) 5-40 Mg Capsule, 1 TAB PO DAILY for 30 Days, #30 06/15/18 Metoprolol Succinate* (Toprol XL*) 25 Mg Tab.sr.24h, 25 MG PO DAILY for 30 Days, #30 06/15/18 Atorvastatin Calcium (Atorvastatin Calcium) 20 Mg Tablet, 20 MG PO QHS for 30 Days, #30 06/15/18 Lisinopril* (Lisinopril*) 10 Mg Tablet, 10 MG PO DAILY for 30 Days, #30 06/15/18 Isosorbide Mononitrate* (Isosorbide Mononitrate*) 60 Mg Tab.er.24h, 60 MG PO DAILY, TAB 07/23/16 Aspirin* (Aspirin* EC) 81 Mg Tablet.dr, 81 MG PO DAILY, TAB 07/23/16 Diclofenac Sodium* (Diclofenac Sodium*) 75 Mg Tablet.dr, 75 MG PO BID WITH MEALS, #60 TAB 07/23/16 Discontinued Reported Medications Ibuprofen* (Ibuprofen*) 800 Mg Tab, 800 MG PO Q6H, TAB 07/23/16 Discontinued Scripts Hydrocodone/Acetaminophen ([place] 5-325 Tablet) 1 Each Tablet, 1 EACH PO Q6 for SEVERE PAIN LEVEL 7-10, #14 TAB Prov:KASH LLOYD DO 09/06/16 Naproxen* (Naproxen*) 500 Mg Tablet, 500 MG PO BID PRN for PAIN, #20 TAB Prov:KASH LLOYD DO 09/06/16 Medications Current Medications IV Flush (NS 3 ml) 3 ml PER PROTOCOL IV ; Start 06/16/18 at 06:30 Ondansetron HCl (Zofran Inj) 4 mg Q6H PRN IV NAUSEA/VOMITING; Start 06/16/18 at 06:30 Acetaminophen (Tylenol Tab) 650 mg Q6H PRN PO .PAIN 1-3 OR TEMP; Start 06/16/18 at 06:30 Acetaminophen/ Hydrocodone Bitart ([place] (5/325)) 1 tab Q6H PRN PO .PAIN 4-6; Start 06/16/18 at 06:30 Acetaminophen/ Hydrocodone Bitart ([place] (5/325)) 2 tab Q6H PRN PO .PAIN 7-10; Start 06/16/18 at 06:30 Heparin Sodium (Porcine) (Heparin (5000 Units/1ml)) 5,000 unit Q12 SC Last administered on 06/16/18at 12:11; Admin Dose 5,000 UNIT; Start 06/16/18 at 09:00 Albuterol/ Ipratropium (Duoneb) 3 ml Q2H RESP THERAPY PRN HHN SHORTNESS OF BREATH; Start 06/16/18 at 06:30 Aspirin (Halfprin) 81 mg DAILY PO Last administered on 06/16/18at 12:11; Admin Dose 81 MG; Start 06/16/18 at 09:00 Atorvastatin Calcium (Lipitor) 20 mg QHS PO ; Start 06/16/18 at 21:00 Diclofenac Sodium (Voltaren) 75 mg BID WITH MEALS PO Last administered on 06/16/18at 11:59; Admin Dose 75 MG; Start 06/16/18 at 08:00 Isosorbide Mononitrate (Imdur) 60 mg DAILY PO Last administered on 06/16/18at 11:58; Admin Dose 60 MG; Start 06/16/18 at 09:00 Lisinopril (Zestril) 10 mg DAILY PO Last administered on 06/16/18at 12:00; Admin Dose 10 MG; Start 06/16/18 at 09:00 Metoprolol Succinate (Toprol Xl) 25 mg DAILY PO Last administered on 06/16/18at 11:59; Admin Dose 25 MG; Start 06/16/18 at 09:00 Miscellaneous Information 1 ea NOTE XX ; Start 06/16/18 at 07:30 Glucose (Glutose) 15 gm Q15M PRN PO DECREASED GLUCOSE; Start 06/16/18 at 07:30 Glucose (Glutose) 22.5 gm Q15M PRN PO DECREASED GLUCOSE; Start 06/16/18 at 07:30 Dextrose (D50w Syringe) 25 ml Q15M PRN IV DECREASED GLUCOSE; Start 06/16/18 at 07:30 Dextrose (D50w Syringe) 50 ml Q15M PRN IV DECREASED GLUCOSE; Start 06/16/18 at 07:30 Glucagon (Glucagen) 1 mg Q15M PRN IM DECREASED GLUCOSE; Start 06/16/18 at 07:30 Glucose (Glutose) 15 gm Q15M PRN BUCCAL DECREASED GLUCOSE; Start 06/16/18 at 07:30 Methylprednisolone Sodium Succinate (Solu-Medrol) 40 mg Q6 IV ; Start 06/16/18 at 18:00 Albuterol/ Ipratropium (Duoneb) 3 ml Q6H RESP THERAPY HHN Last administered on 06/16/18at 14:17; Admin Dose 3 ML; Start 06/16/18 at 14:00 Levofloxacin/ Dextrose 100 ml @ 100 mls/hr Q24H IVPB Last administered on 06/16/18at 13:36; Admin Dose 100 MLS/HR; Start 06/16/18 at 13:00 Insulin Aspart (Novolog Insulin Pen) NOVOLOG *MODERATE* ALGORITHM WITH MEALS BEDTIME SC ; Start 06/16/18 at 18:00 Allergies: Coded Allergies: No Known Allergy (Unverified , 06/15/18) Social History Smoking Status: Never smoker Exam/Review of Systems Exam Vitals Vital Signs Date Temp Pulse Resp B/P (MAP) Pulse Ox O2 O2 Flow FiO2 Time Delivery Rate 06/16/18 94 18 124/78 97 BIPAP 15:11 (93) 06/16/18 50 14:25 06/16/18 15.0 00:19 06/15/18 98.3 21:30 Exam PHYSICAL EXAMINATION: GENERAL: Morbidly obese, Bipap in place, lethargic SKIN: No lesions. HEAD: Normocephalic, atraumatic, no tenderness. EYES: Pupils equal reactive to light, no discharge. EARS/NOSE AND THROAT: Ears normal, nose normal. NECK: Supple, no masses CHEST: Inspection within normal limits. CARDIOVASCULAR: Heart: Regular rate and rhythm RESPIRATORY: Diminished GASTROINTESTINAL AND LIVER: Abdomen: Soft, non tenderness, distended, no hernias, no masses, no organomegaly, no ascites, no guarding, no rebound tenderness, normoactive bowel sounds. Rectal: Deferred. Results Result Diagram: 06/16/18 0818 06/16/18 0818 Results 24hrs Laboratory Tests Test 06/15/18 21:40 06/15/18 21:49 06/15/18 22:20 06/15/18 22:30 White Blood 9.5 Count Red Blood Count 5.17 Hemoglobin 15.5 Hematocrit 46.6 Mean Corpuscular 90.1 Volume Mean Corpuscular 30.0 Hemoglobin Mean Corpuscular 33.3 Hemoglobin Ewa nt Red Cell 13.5 Distribution Width Platelet Count 234 Mean Platelet 11.1 H Volume Immature 0.500 H Granulocytes % Neutrophils % 64.2 Lymphocytes % 25.9 Monocytes % 5.9 Eosinophils % 2.8 Basophils % 0.7 Nucleated Red 0.0 Blood Cells % Immature 0.050 H Granulocytes # Neutrophils # 6.1 Lymphocytes # 2.5 Monocytes # 0.6 Eosinophils # 0.3 Basophils # 0.1 Nucleated Red 0.0 Blood Cells # Prothrombin Time 12.4 Prothrombin Time 1.0 Ratio INR 0.91 International Normalized Ratio Activated 28.9 Partial Thrombop last Time Bedside Glucose 151 Urine Color YELLOW Urine Clarity CLEAR Urine pH 5.0 Urine Specific 1.020 [place] Urine Ketones NEGATIVE Urine Nitrite NEGATIVE Urine Bilirubin NEGATIVE Urine NEGATIVE Urobilinogen Urine Leukocyte NEGATIVE Esterase Urine Hemoglobin NEGATIVE Urine Glucose 2+ H Urine Total NEGATIVE Protein Sodium Level 140 Potassium Level 4.4 Chloride Level 106 Carbon Dioxide 27 Level Anion Gap 7 Blood Urea 20 Nitrogen Creatinine 1.14 Est Glomerular > 60 Filtrat Rate mL/min Glucose Level 160 Calcium Level 8.9 Total Bilirubin 0.2 Direct Bilirubin 0.00 Indirect 0.2 Bilirubin Aspartate Amino 30 Transf (AST/SGOT ) Alanine 38 Aminotransferase (ALT/SGPT) Alkaline 98 Phosphatase Troponin I < 0.012 B-Type 64 Natriuretic Peptide Total Protein 6.9 Albumin 3.8 Globulin 3.10 Albumin/Globulin 1.22 Ratio Amylase Level 88 Lipase 74 Test 06/16/18 01:20 06/16/18 08:18 06/16/18 09:01 06/16/18 13:15 Blood Gas Blood arterial Blood arterial Specimen Source Arterial Blood 06/16/2018 1:15: 06/16/2018 9:12: Date Drawn 55 AM 22 AM Arterial Blood 7.273 *L 7.290 *L pH (Temp corrected) Arterial Blood 56.3 H 57.1 H pCO2 (Temp correct) Arterial Blood 117.0 H 75.8 L pO2 (Temp corrected) Arterial Blood 25.4 26.8 H HCO3 Arterial Blood -2.6 -1.1 Base Excess Arterial Blood 97.5 94.1 L Oxygen Saturatio n Kevin Test N/A ACCEPTAB Arterial Blood Right Radial Right Radial Gas Puncture Site Arterial 2.6 1.3 Blood Carboxyhem oglobin Arterial Blood 0.3 0.3 Methemoglobin Blood Gas A-a O2 539.7 H 143.7 H Differential Oxyhemoglobin 94.7 92.6 L Percent Blood Gas 37.0 37.0 Temperature Blood Gas MASK - NRB MASK - BIPAP Modality FiO2 100.0 40.0 Blood Gas D AUGUSTUS Mora RN Critical Value Read Back Blood Gas UP [place] Wisdom Notified Whom Blood Gas 06/16/2018 1:29: 06/16/2018 9:18: Notified Time 05 AM 22 AM White Blood 9.2 Count Red Blood Count 5.33 Hemoglobin 15.9 Hematocrit 48.6 Mean Corpuscular 91.2 Volume Mean Corpuscular 29.8 Hemoglobin Mean Corpuscular 32.7 Hemoglobin Ewa nt Red Cell 13.3 Distribution Width Platelet Count 206 Mean Platelet 10.3 Volume Immature 0.500 H Granulocytes % Neutrophils % 90.6 H Lymphocytes % 7.9 L Monocytes % 0.7 Eosinophils % 0.1 Basophils % 0.2 Nucleated Red 0.0 Blood Cells % Immature 0.050 H Granulocytes # Neutrophils # 8.3 H Lymphocytes # 0.7 L Monocytes # 0.1 L Eosinophils # 0.0 Basophils # 0.0 Nucleated Red 0.0 Blood Cells # Sodium Level 142 Potassium Level 5.1 Chloride Level 105 Carbon Dioxide 26 Level Anion Gap 11 Blood Urea 24 H Nitrogen Creatinine 0.84 Est Glomerular > 60 Filtrat Rate mL/min Glucose Level 285 #H Hemoglobin A1c 7.7 H Calcium Level 9.2 Total Bilirubin 0.1 L Direct Bilirubin 0.00 Indirect 0.1 Bilirubin Aspartate Amino 33 Transf (AST/SGOT ) Alanine 40 Aminotransferase (ALT/SGPT) Alkaline 110 Phosphatase Total Protein 7.7 Albumin 4.5 Globulin 3.20 Albumin/Globulin 1.40 Ratio Triglycerides 87 Level Cholesterol 237 H Level LDL Cholesterol, 167 Calculated HDL Cholesterol 53 Cholesterol/HDL 4.4 Ratio Blood Gas 16.0 Respiration Rate Blood Gas Actual 16 Respiration Rate Blood Gas 13 Pressure Support Blood Gas 18/5 IPAP/EPAP Ratio Bedside Glucose 216 Medications Medication Current Medications IV Flush (NS 3 ml) 3 ml PER PROTOCOL IV ; Start 06/16/18 at 06:30 Ondansetron HCl (Zofran Inj) 4 mg Q6H PRN IV NAUSEA/VOMITING; Start 06/16/18 at 06:30 Acetaminophen (Tylenol Tab) 650 mg Q6H PRN PO .PAIN 1-3 OR TEMP; Start 06/16/18 at 06:30 Acetaminophen/ Hydrocodone Bitart ([place] (5/325)) 1 tab Q6H PRN PO .PAIN 4-6; Start 06/16/18 at 06:30 Acetaminophen/ Hydrocodone Bitart ([place] (5/325)) 2 tab Q6H PRN PO .PAIN 7-10; Start 06/16/18 at 06:30 Heparin Sodium (Porcine) (Heparin (5000 Units/1ml)) 5,000 unit Q12 SC Last administered on 06/16/18at 12:11; Admin Dose 5,000 UNIT; Start 06/16/18 at 09:00 Albuterol/ Ipratropium (Duoneb) 3 ml Q2H RESP THERAPY PRN HHN SHORTNESS OF BREATH; Start 06/16/18 at 06:30 Aspirin (Halfprin) 81 mg DAILY PO Last administered on 06/16/18at 12:11; Admin Dose 81 MG; Start 06/16/18 at 09:00 Atorvastatin Calcium (Lipitor) 20 mg QHS PO ; Start 06/16/18 at 21:00 Diclofenac Sodium (Voltaren) 75 mg BID WITH MEALS PO Last administered on 06/16/18at 11:59; Admin Dose 75 MG; Start 06/16/18 at 08:00 Isosorbide Mononitrate (Imdur) 60 mg DAILY PO Last administered on 06/16/18at 11:58; Admin Dose 60 MG; Start 06/16/18 at 09:00 Lisinopril (Zestril) 10 mg DAILY PO Last administered on 06/16/18at 12:00; Admin Dose 10 MG; Start 06/16/18 at 09:00 Metoprolol Succinate (Toprol Xl) 25 mg DAILY PO Last administered on 06/16/18at 11:59; Admin Dose 25 MG; Start 06/16/18 at 09:00 Miscellaneous Information 1 ea NOTE XX ; Start 06/16/18 at 07:30 Glucose (Glutose) 15 gm Q15M PRN PO DECREASED GLUCOSE; Start 06/16/18 at 07:30 Glucose (Glutose) 22.5 gm Q15M PRN PO DECREASED GLUCOSE; Start 06/16/18 at 07:30 Dextrose (D50w Syringe) 25 ml Q15M PRN IV DECREASED GLUCOSE; Start 06/16/18 at 07:30 Dextrose (D50w Syringe) 50 ml Q15M PRN IV DECREASED GLUCOSE; Start 06/16/18 at 07:30 Glucagon (Glucagen) 1 mg Q15M PRN IM DECREASED GLUCOSE; Start 06/16/18 at 07:30 Glucose (Glutose) 15 gm Q15M PRN BUCCAL DECREASED GLUCOSE; Start 06/16/18 at 07:30 Methylprednisolone Sodium Succinate (Solu-Medrol) 40 mg Q6 IV ; Start 06/16/18 at 18:00 Albuterol/ Ipratropium (Duoneb) 3 ml Q6H RESP THERAPY HHN Last administered on 06/16/18at 14:17; Admin Dose 3 ML; Start 06/16/18 at 14:00 Levofloxacin/ Dextrose 100 ml @ 100 mls/hr Q24H IVPB Last administered on 06/16/18at 13:36; Admin Dose 100 MLS/HR; Start 06/16/18 at 13:00 Insulin Aspart (Novolog Insulin Pen) NOVOLOG *MODERATE* ALGORITHM WITH MEALS BEDTIME SC ; Start 06/16/18 at 18:00 ZENAIDA EVANS Jun 16, 2018 15:47
[2018-06-16] MEDS: METHYLPREDNISOLONE 40 MG INJ IV SCH (18:00)
[2018-06-16] MEDS: INSULIN ASPART [NOVOLOG] 3 ML PEN SC SCH ×2 (20:24→23:36)
[2018-06-16] MEDS: ATORVASTATIN 20 MG TAB PO SCH (21:12)
[2018-06-17] VITALS (13 sets, daily range): BP systolic 131–141; BP diastolic 67–82; PULSE 72–109; RESP 18–21
[2018-06-17] MEDS: METHYLPREDNISOLONE 40 MG INJ IV SCH ×4 (00:37→17:54)
[2018-06-17] MEDS: ALBUTEROL/IPRATROPIUM (NEB) 3 ML AMP HHN SCH ×4 (01:13→20:49)
[2018-06-17] MEDS: DICLOFENAC (EC) 75 MG TAB PO SCH ×2 (07:59→17:54)
[2018-06-17] MEDS: INSULIN ASPART [NOVOLOG] 3 ML PEN SC SCH ×4 (08:06→22:09)
[2018-06-17] MEDS: ASPIRIN (EC) 81 MG TAB PO SCH (09:50)
[2018-06-17] MEDS: HEPARIN 5,000 UNIT/1 ML VIAL SC SCH ×2 (09:51→21:55)
[2018-06-17] MEDS: METOPROLOL (XL) 25 MG TAB PO SCH (09:52)
[2018-06-17] MEDS: ISOSORBIDE MONONITRATE(SR)60 MG TAB PO SCH (09:52)
[2018-06-17] MEDS: LISINOPRIL 10 MG TAB PO SCH (09:52)
--- NOTE | 2018-06-17 10:43 | CONS ---
Assessment/Plan Assessment/Plan Assessment/Plan (Daily) Assessment recommendations; 1. Patient admitted for COPD exacerbation with acute bronchitis with s ignificant interval improvement. 2. History of diabetes and hypertension. 3. Likely chronic type II respiratory failure due to underlying obesity/hypoventilation syndrome and possibly superimposed on obstructive sleep apnea. ABG showing improving hypercapnia. Continue current supportive care. Patient will need to have a sleep study done on an outpatient basis. Obtain follow-up ABG to assess for possible home ventilator use. Consultation Date/Type/Reason Admit Date/Time Jun 16, 2018 at 01:19 Initial Consult Date 06/16/18 Type of Consult Pulmonary Reason for Consultation Patient's condition is improving. Remains awake and alert. Reports significant improvement in shortness of breath. Denies any coughing, wheezing, sputum production. General exam; middle-aged male, morbidly obese, awake alert, currently in no distress. Date/Time of Note DATE: 06/17/18 TIME: 10:40 Exam/Review of Systems Exam Vitals Vital Signs Date Temp Pulse Resp B/P (MAP) Pulse Ox O2 O2 Flow FiO2 Time Delivery Rate 06/17/18 94 3.0 08:24 06/17/18 101 22 Nasal 08:24 Cannula 06/17/18 98.8 139/74 07:29 (95) 06/17/18 40 05:10 Intake and Output 06/16/18 06/16/18 06/17/18 1515:00 23:00 07:00 OutputOutput Total 800 ml BalanceBalance -800 ml Exam HE ENT exam; supple neck, no JVD. No lymphadenopathy. Patient is edentulous. No neck masses. Chest exam; diminished but clear breath sounds. S1-S2 audible, no murmurs. Regular rhythm. Abdomen exam; protuberant. No organomegaly. Bowel is audible. Nontender. Extremity exam; no peripheral edema. No clubbing. Pulses 2+. [employer] exam; no focal deficit. Results Result Diagram: 06/17/189 06/17/18 031 Results 24hrs Laboratory Tests Test 06/16/18 13:15 06/16/18 18:56 06/16/18 21:28 06/16/18 23:35 Bedside Glucose 216 204 217 250 H Test 06/17/18 02:51 06/17/18 03:19 06/17/18 07:00 06/17/18 07:58 Bedside Glucose 235 H 260 H White Blood Count 11.8 #H Red Blood Count 5.20 Hemoglobin 15.3 Hematocrit 47.4 Mean Corpuscular 91.2 Volume Mean Corpuscular 29.4 Hemoglobin Mean Corpuscular 32.3 Hemoglobin Concen t Red Cell 13.5 Distribution Width Platelet Count 216 Mean Platelet 10.6 H Volume Immature 0.600 H Granulocytes % Neutrophils % 90.6 H Lymphocytes % 6.7 L Monocytes % 1.9 Eosinophils % 0.1 Basophils % 0.1 Nucleated Red 0.0 Blood Cells % Immature 0.070 H Granulocytes # Neutrophils # 10.7 H Lymphocytes # 0.8 Monocytes # 0.2 L Eosinophils # 0.0 Basophils # 0.0 Nucleated Red 0.0 Blood Cells # Sodium Level 143 Potassium Level 4.8 Chloride Level 105 Carbon Dioxide 28 Level Anion Gap 10 Blood Urea 28 H Nitrogen Creatinine 0.75 Est Glomerular > 60 Filtrat Rate mL/min Glucose Level 263 H Lactic Acid Level 2.5 *H Calcium Level 9.7 Phosphorus Level 4.2 Magnesium Level 2.3 Total Bilirubin 0.1 L Direct Bilirubin 0.00 Indirect 0.1 Bilirubin Aspartate Amino 29 Transf (AST/SGOT) Alanine 38 Aminotransferase (ALT/SGPT) Alkaline 103 Phosphatase Total Protein 7.1 Albumin 4.0 Globulin 3.10 Albumin/Globulin 1.29 Ratio Blood Gas Blood arterial Specimen Source Arterial Blood 06/17/2018 7:55:5 Date Drawn 3 AM Arterial Blood pH 7.417 (Temp corrected) Arterial Blood 44.7 pCO2 (Temp correct) Arterial Blood 84.4 pO2 (Temp corrected) Arterial Blood 28.1 H HCO3 Arterial Blood 3.0 Base Excess Arterial Blood 96.1 Oxygen Saturation Kevin Test ACCEPTAB Arterial Blood Right Radial Gas Puncture Site Arterial 0.5 Blood Carboxyhemo globin Arterial Blood 0.3 Methemoglobin Blood Gas A-a O2 149.4 H Differential Oxyhemoglobin 95.3 Percent Blood Gas 37.0 Temperature Blood Gas 20.0 Respiration Rate Blood Gas Actual 27 Respiration Rate Blood Gas MASK - BIPAP Modality FiO2 40.0 Blood Gas 12 Pressure Support Blood Gas TM Notified Whom Blood Gas 06/17/2018 8:10:2 Notified Time 9 AM Medications Medication Current Medications IV Flush (NS 3 ml) 3 ml PER PROTOCOL IV ; Start 06/16/18 at 06:30 Ondansetron HCl (Zofran Inj) 4 mg Q6H PRN IV NAUSEA/VOMITING; Start 06/16/18 at 06:30 Acetaminophen (Tylenol Tab) 650 mg Q6H PRN PO .PAIN 1-3 OR TEMP; Start 06/16/18 at 06:30 Acetaminophen/ Hydrocodone Bitart ([place] (5/325)) 1 tab Q6H PRN PO .PAIN 4-6; Start 06/16/18 at 06:30 Acetaminophen/ Hydrocodone Bitart ([place] (5/325)) 2 tab Q6H PRN PO .PAIN 7-10; Start 06/16/18 at 06:30 Heparin Sodium (Porcine) (Heparin (5000 Units/1ml)) 5,000 unit Q12 SC Last administered on 06/17/18 09:51; Admin Dose 5,000 UNIT; Start 06/16/18 at 09:00 Albuterol/ Ipratropium (Duoneb) 3 ml Q2H RESP THERAPY PRN HHN SHORTNESS OF BREATH; Start 06/16/18 at 06:30 Aspirin (Halfprin) 81 mg DAILY PO Last administered on 06/17/18 09:50; Admin Dose 81 MG; Start 06/16/18 at 09:00 Atorvastatin Calcium (Lipitor) 20 mg QHS PO Last administered on 06/16/18 21:12; Admin Dose 20 MG; Start 06/16/18 at 21:00 Diclofenac Sodium (Voltaren) 75 mg BID WITH MEALS PO Last administered on 06/17/18 07:59; Admin Dose 75 MG; Start 06/16/18 at 08:00 Isosorbide Mononitrate (Imdur) 60 mg DAILY PO Last administered on 06/17/18 09:52; Admin Dose 60 MG; Start 06/16/18 at 09:00 Lisinopril (Zestril) 10 mg DAILY PO Last administered on 06/17/18 09:52; Admin Dose 10 MG; Start 06/16/18 at 09:00 Metoprolol Succinate (Toprol Xl) 25 mg DAILY PO Last administered on 06/17/18 09:52; Admin Dose 25 MG; Start 06/16/18 at 09:00 Miscellaneous Information 1 ea NOTE XX ; Start 06/16/18 at 07:30 Glucose (Glutose) 15 gm Q15M PRN PO DECREASED GLUCOSE; Start 06/16/18 at 07:30 Glucose (Glutose) 22.5 gm Q15M PRN PO DECREASED GLUCOSE; Start 06/16/18 at 07:30 Dextrose (D50w Syringe) 25 ml Q15M PRN IV DECREASED GLUCOSE; Start 06/16/18 at 07:30 Dextrose (D50w Syringe) 50 ml Q15M PRN IV DECREASED GLUCOSE; Start 06/16/18 at 07:30 Glucagon (Glucagen) 1 mg Q15M PRN IM DECREASED GLUCOSE; Start 06/16/18 at 07:30 Glucose (Glutose) 15 gm Q15M PRN BUCCAL DECREASED GLUCOSE; Start 06/16/18 at 07:30 Methylprednisolone Sodium Succinate (Solu-Medrol) 40 mg Q6 IV Last administered on 06/17/18at 04:58; Admin Dose 40 MG; Start 06/16/18 at 18:00 Albuterol/ Ipratropium (Duoneb) 3 ml Q6H RESP THERAPY HHN Last administered on 06/17/18at 08:24; Admin Dose 3 ML; Start 06/16/18 at 14:00 Levofloxacin/ Dextrose 100 ml @ 100 mls/hr Q24H IVPB Last administered on 06/16/18at 13:36; Admin Dose 100 MLS/HR; Start 06/16/18 at 13:00 Insulin Aspart (Novolog Insulin Pen) NOVOLOG *MODERATE* ALGORITHM WITH MEALS BEDTIME SC Last administered on 06/17/18at 08:06; Admin Dose 6 UNIT; Start 06/16/18 at 17:55 SHIELA SERVIN Jun 17, 2018 10:43
[2018-06-17] MEDS: LEVOFLOXACIN 500MG/D5W (PMX) 100 ML IVPB SCH (12:45)
--- NOTE | 2018-06-17 14:12 | PN ---
Date/Time of Note Date/Time of Note DATE: 06/17/18 TIME: 13:52 Assessment/Plan VTE Prophylaxis Risk score (from Ns)>0 risk: 5 SCD applied (from Ns): Yes Pharmacological prophylaxis: heparin Lines/Catheters IV Catheter Type (from Nrs): Saline Lock Assessment/Plan Assessment/Plan 1. COPD exacerbation, neb, antibiotics, SoluMedrol, imptoving 2. Respiratory failure, O2 3. Sleep apnea, on BiPAP whle at sleep 4. Right upper quadrant abdominal pain, Ultrasound shows dilated CBD without cholelithiasis or cholecystitis, normal LFTs, clinically observation 5. Diabetes mellitus, lantus and ISS 6. Hypertension: Adjust antihypertensive as needed 7. Dyslipidemia: Continue statin 8. DVT prophylaxis: heparin Result Diagram: 06/17/1831806/17/18318 Results 24hrs Laboratory Tests Test 06/16/18 18:56 06/16/18 21:28 06/16/18 23:35 06/17/18 02:51 Bedside Glucose 204 217 250 H 235 H Test 06/17/18 03:19 06/17/18 07:00 06/17/18 07:58 06/17/18 12:23 White Blood Count 11.8 #H Red Blood Count 5.20 Hemoglobin 15.3 Hematocrit 47.4 Mean Corpuscular 91.2 Volume Mean Corpuscular 29.4 Hemoglobin Mean Corpuscular 32.3 Hemoglobin Concen t Red Cell 13.5 Distribution Width Platelet Count 216 Mean Platelet 10.6 H Volume Immature 0.600 H Granulocytes % Neutrophils % 90.6 H Lymphocytes % 6.7 L Monocytes % 1.9 Eosinophils % 0.1 Basophils % 0.1 Nucleated Red 0.0 Blood Cells % Immature 0.070 H Granulocytes # Neutrophils # 10.7 H Lymphocytes # 0.8 Monocytes # 0.2 L Eosinophils # 0.0 Basophils # 0.0 Nucleated Red 0.0 Blood Cells # Sodium Level 143 Potassium Level 4.8 Chloride Level 105 Carbon Dioxide 28 Level Anion Gap 10 Blood Urea 28 H Nitrogen Creatinine 0.75 Est Glomerular > 60 Filtrat Rate mL/min Glucose Level 263 H Lactic Acid Level 2.5 *H Calcium Level 9.7 Phosphorus Level 4.2 Magnesium Level 2.3 Total Bilirubin 0.1 L Direct Bilirubin 0.00 Indirect 0.1 Bilirubin Aspartate Amino 29 Transf (AST/SGOT) Alanine 38 Aminotransferase (ALT/SGPT) Alkaline 103 Phosphatase Total Protein 7.1 Albumin 4.0 Globulin 3.10 Albumin/Globulin 1.29 Ratio Blood Gas Blood arterial Specimen Source Arterial Blood 06/17/2018 7:55:5 Date Drawn 3 AM Arterial Blood pH 7.417 (Temp corrected) Arterial Blood 44.7 pCO2 (Temp correct) Arterial Blood 84.4 pO2 (Temp corrected) Arterial Blood 28.1 H HCO3 Arterial Blood 3.0 Base Excess Arterial Blood 96.1 Oxygen Saturation Kevin Test ACCEPTAB Arterial Blood Right Radial Gas Puncture Site Arterial 0.5 Blood Carboxyhemo globin Arterial Blood 0.3 Methemoglobin Blood Gas A-a O2 149.4 H Differential Oxyhemoglobin 95.3 Percent Blood Gas 37.0 Temperature Blood Gas 20.0 Respiration Rate Blood Gas Actual 27 Respiration Rate Blood Gas MASK - BIPAP Modality FiO2 40.0 Blood Gas 12 Pressure Support Blood Gas TM Notified Whom Blood Gas 06/17/2018 8:10:2 Notified Time 9 AM Bedside Glucose 260 H 243 H Subjective 24 Hr Interval Summary Free Text/Dictation much less shortness of breath Exam/Review of Systems Exam Vitals Vital Signs Date Temp Pulse Resp B/P (MAP) Pulse Ox O2 O2 Flow FiO2 Time Delivery Rate 06/17/18 109 12:00 06/17/18 94 3.0 08:24 06/17/18 22 Nasal 08:24 Cannula 06/17/18 98.8 139/74 07:29 (95) 06/17/18 40 05:10 Intake and Output 06/16/18 06/16/18 06/17/18 1515:00 23:00 07:00 OutputOutput Total 800 ml BalanceBalance -800 ml Constitutional: alert, oriented, well developed, obese Head: normocephalic, atraumatic Eyes: nl conjunctiva, EOMI, nl lids, PERRL ENMT: nl external ears & nose, nl lips & teeth, nl nasal mucosa & septum Neck: supple, non-tender Respiratory: clear to auscultation, diminished breath sounds Cardiovascular: regular rate and rhythm, nl pulses; No bruits, No diastolic murmur, No edema, No gallop, No irregular rhythm, No jugular venous distention (JVD), No murmurs/extra sounds, No rub, No systolic murmur, No S3, No S4, No other Gastrointestinal: soft, nl liver, spleen, non-tender Musculoskeletal: nl extremities to inspection Extremities: normal pulses; No calf tenderness, No cyanosis, No clubbing, No edema, No pitting pedal edema, No palpable cord, No tenderness, No other Neurological: ENERGY BROKER II-XII intact, nl mental status, nl speech, nl strength Skin: nl turgor Results Results 24hrs Laboratory Tests Test 06/16/18 18:56 06/16/18 21:28 06/16/18 23:35 06/17/18 02:51 Bedside Glucose 204 217 250 H 235 H Test 06/17/18 03:19 06/17/18 07:00 06/17/18 07:58 06/17/18 12:23 White Blood Count 11.8 #H Red Blood Count 5.20 Hemoglobin 15.3 Hematocrit 47.4 Mean Corpuscular 91.2 Volume Mean Corpuscular 29.4 Hemoglobin Mean Corpuscular 32.3 Hemoglobin Concen t Red Cell 13.5 Distribution Width Platelet Count 216 Mean Platelet 10.6 H Volume Immature 0.600 H Granulocytes % Neutrophils % 90.6 H Lymphocytes % 6.7 L Monocytes % 1.9 Eosinophils % 0.1 Basophils % 0.1 Nucleated Red 0.0 Blood Cells % Immature 0.070 H Granulocytes # Neutrophils # 10.7 H Lymphocytes # 0.8 Monocytes # 0.2 L Eosinophils # 0.0 Basophils # 0.0 Nucleated Red 0.0 Blood Cells # Sodium Level 143 Potassium Level 4.8 Chloride Level 105 Carbon Dioxide 28 Level Anion Gap 10 Blood Urea 28 H Nitrogen Creatinine 0.75 Est Glomerular > 60 Filtrat Rate mL/min Glucose Level 263 H Lactic Acid Level 2.5 *H Calcium Level 9.7 Phosphorus Level 4.2 Magnesium Level 2.3 Total Bilirubin 0.1 L Direct Bilirubin 0.00 Indirect 0.1 Bilirubin Aspartate Amino 29 Transf (AST/SGOT) Alanine 38 Aminotransferase (ALT/SGPT) Alkaline 103 Phosphatase Total Protein 7.1 Albumin 4.0 Globulin 3.10 Albumin/Globulin 1.29 Ratio Blood Gas Blood arterial Specimen Source Arterial Blood 06/17/2018 7:55:5 Date Drawn 3 AM Arterial Blood pH 7.417 (Temp corrected) Arterial Blood 44.7 pCO2 (Temp correct) Arterial Blood 84.4 pO2 (Temp corrected) Arterial Blood 28.1 H HCO3 Arterial Blood 3.0 Base Excess Arterial Blood 96.1 Oxygen Saturation Kevin Test ACCEPTAB Arterial Blood Right Radial Gas Puncture Site Arterial 0.5 Blood Carboxyhemo globin Arterial Blood 0.3 Methemoglobin Blood Gas A-a O2 149.4 H Differential Oxyhemoglobin 95.3 Percent Blood Gas 37.0 Temperature Blood Gas 20.0 Respiration Rate Blood Gas Actual 27 Respiration Rate Blood Gas MASK - BIPAP Modality FiO2 40.0 Blood Gas 12 Pressure Support Blood Gas TM Notified Whom Blood Gas 06/17/2018 8:10:2 Notified Time 9 AM Bedside Glucose 260 H 243 H Medications Medication Current Medications IV Flush (NS 3 ml) 3 ml PER PROTOCOL IV ; Start 06/16/18 at 06:30 Ondansetron HCl (Zofran Inj) 4 mg Q6H PRN IV NAUSEA/VOMITING; Start 06/16/18 at 06:30 Acetaminophen (Tylenol Tab) 650 mg Q6H PRN PO .PAIN 1-3 OR TEMP; Start 06/16/18 at 06:30 Acetaminophen/ Hydrocodone Bitart ([place] (5/325)) 1 tab Q6H PRN PO .PAIN 4-6; Start 06/16/18 at 06:30 Acetaminophen/ Hydrocodone Bitart ([place] (5/325)) 2 tab Q6H PRN PO .PAIN 7-10; Start 06/16/18 at 06:30 Heparin Sodium (Porcine) (Heparin (5000 Units/1ml)) 5,000 unit Q12 SC Last administered on 06/17/18at 09:51; Admin Dose 5,000 UNIT; Start 06/16/18 at 09:00 Albuterol/ Ipratropium (Duoneb) 3 ml Q2H RESP THERAPY PRN HHN SHORTNESS OF BREATH; Start 06/16/18 at 06:30 Aspirin (Halfprin) 81 mg DAILY PO Last administered on 06/17/18at 09:50; Admin Dose 81 MG; Start 06/16/18 at 09:00 Atorvastatin Calcium (Lipitor) 20 mg QHS PO Last administered on 06/16/18at 21:12; Admin Dose 20 MG; Start 06/16/18 at 21:00 Diclofenac Sodium (Voltaren) 75 mg BID WITH MEALS PO Last administered on 06/17/18at 07:59; Admin Dose 75 MG; Start 06/16/18 at 08:00 Isosorbide Mononitrate (Imdur) 60 mg DAILY PO Last administered on 06/17/18 09:52; Admin Dose 60 MG; Start 06/16/18 at 09:00 Lisinopril (Zestril) 10 mg DAILY PO Last administered on 06/17/18 09:52; Admin Dose 10 MG; Start 06/16/18 at 09:00 Metoprolol Succinate (Toprol Xl) 25 mg DAILY PO Last administered on 06/17/18 09:52; Admin Dose 25 MG; Start 06/16/18 at 09:00 Miscellaneous Information 1 ea NOTE XX ; Start 06/16/18 at 07:30 Glucose (Glutose) 15 gm Q15M PRN PO DECREASED GLUCOSE; Start 06/16/18 at 07:30 Glucose (Glutose) 22.5 gm Q15M PRN PO DECREASED GLUCOSE; Start 06/16/18 at 07:30 Dextrose (D50w Syringe) 25 ml Q15M PRN IV DECREASED GLUCOSE; Start 06/16/18 at 07:30 Dextrose (D50w Syringe) 50 ml Q15M PRN IV DECREASED GLUCOSE; Start 06/16/18 at 07:30 Glucagon (Glucagen) 1 mg Q15M PRN IM DECREASED GLUCOSE; Start 06/16/18 at 07:30 Glucose (Glutose) 15 gm Q15M PRN BUCCAL DECREASED GLUCOSE; Start 06/16/18 at 07:30 Methylprednisolone Sodium Succinate (Solu-Medrol) 40 mg Q6 IV Last administered on 06/17/18 12:27; Admin Dose 40 MG; Start 06/16/18 at 18:00 Albuterol/ Ipratropium (Duoneb) 3 ml Q6H RESP THERAPY HHN Last administered on 06/17/18 13:51; Admin Dose 3 ML; Start 06/16/18 at 14:00 Levofloxacin/ Dextrose 100 ml @ 100 mls/hr Q24H IVPB Last administered on 06/17/18 12:45; Admin Dose 100 MLS/HR; Start 06/16/18 at 13:00 Insulin Aspart (Novolog Insulin Pen) NOVOLOG *MODERATE* ALGORITHM WITH MEALS BEDTIME SC Last administered on 06/17/18 12:32; Admin Dose 6 UNIT; Start 4/24/19 at 17:55 VINNY VAZQUEZ MD Jun 17, 2018 14:02
--- NOTE | 2018-06-17 15:32 | PN ---
Date/Time of Note Date/Time of Note DATE: 06/17/18 TIME: 15:24 Assessment/Plan VTE Prophylaxis Risk score (from Ns)>0 risk: 5 SCD applied (from Ns): Yes Pharmacological prophylaxis: other (scds) Lines/Catheters [facility] Assessment/Plan Hospital Course Summary Assessment and Plan: Assessment: Hepatomegaly with hepatic steatosis Proximal common bile duct mild dilation measuring 10.5 mm- normal LFTs COPD exacerbation Morbid obesity Obstructive sleep apnea Plan: MRCP- canceled - LFTs stable, no c/o abdominal pain Will monitor for the next 24 hours- if LFTs remain stable- gi will sign off Patient seen in collaboration with Dr. Abrams Subjective: Course reviewed with nursing staff Patient interviewed and examined All labs, imaging and other results reviewed The patient resting in bed, appears more comfortable today No c/o RUQ pain, nausea/vomiting. Pt currently on O2 appears stable PHYSICAL EXAMINATION: GENERAL: Morbidly obese, awake, alert and oriented- O2 in place SKIN: No lesions. HEAD: Normocephalic, atraumatic, no tenderness. EYES: Pupils equal reactive to light, no discharge. EARS/NOSE AND THROAT: Ears normal, nose normal. NECK: Supple, no masses CHEST: Inspection within normal limits. CARDIOVASCULAR: Heart: Regular rate and rhythm RESPIRATORY: Diminished GASTROINTESTINAL AND LIVER: Abdomen: Soft, non tenderness, distended, no hernias, no masses, no organomegaly, no ascites, no guarding, no rebound tenderness, normoactive bowel sounds. Rectal: Deferred. Result Diagram: 06/17/189 06/17/189 Results 24hrs Laboratory Tests Test 06/16/18 18:56 06/16/18 21:28 06/16/18 23:35 06/17/18 02:51 Bedside Glucose 204 217 250 H 235 H Test 06/17/18 03:19 06/17/18 07:00 06/17/18 07:58 06/17/18 12:23 White Blood Count 11.8 #H Red Blood Count 5.20 Hemoglobin 15.3 Hematocrit 47.4 Mean Corpuscular 91.2 Volume Mean Corpuscular 29.4 Hemoglobin Mean Corpuscular 32.3 Hemoglobin Concen t Red Cell 13.5 Distribution Width Platelet Count 216 Mean Platelet 10.6 H Volume Immature 0.600 H Granulocytes % Neutrophils % 90.6 H Lymphocytes % 6.7 L Monocytes % 1.9 Eosinophils % 0.1 Basophils % 0.1 Nucleated Red 0.0 Blood Cells % Immature 0.070 H Granulocytes # Neutrophils # 10.7 H Lymphocytes # 0.8 Monocytes # 0.2 L Eosinophils # 0.0 Basophils # 0.0 Nucleated Red 0.0 Blood Cells # Sodium Level 143 Potassium Level 4.8 Chloride Level 105 Carbon Dioxide 28 Level Anion Gap 10 Blood Urea 28 H Nitrogen Creatinine 0.75 Est Glomerular > 60 Filtrat Rate mL/min Glucose Level 263 H Lactic Acid Level 2.5 *H Calcium Level 9.7 Phosphorus Level 4.2 Magnesium Level 2.3 Total Bilirubin 0.1 L Direct Bilirubin 0.00 Indirect 0.1 Bilirubin Aspartate Amino 29 Transf (AST/SGOT) Alanine 38 Aminotransferase (ALT/SGPT) Alkaline 103 Phosphatase Total Protein 7.1 Albumin 4.0 Globulin 3.10 Albumin/Globulin 1.29 Ratio Blood Gas Blood arterial Specimen Source Arterial Blood 06/17/2018 7:55:5 Date Drawn 3 AM Arterial Blood pH 7.417 (Temp corrected) Arterial Blood 44.7 pCO2 (Temp correct) Arterial Blood 84.4 pO2 (Temp corrected) Arterial Blood 28.1 H HCO3 Arterial Blood 3.0 Base Excess Arterial Blood 96.1 Oxygen Saturation Kevin Test ACCEPTAB Arterial Blood Right Radial Gas Puncture Site Arterial 0.5 Blood Carboxyhemo globin Arterial Blood 0.3 Methemoglobin Blood Gas A-a O2 149.4 H Differential Oxyhemoglobin 95.3 Percent Blood Gas 37.0 Temperature Blood Gas 20.0 Respiration Rate Blood Gas Actual 27 Respiration Rate Blood Gas MASK - BIPAP Modality FiO2 40.0 Blood Gas 12 Pressure Support Blood Gas TM Notified Whom Blood Gas 06/17/2018 8:10:2 Notified Time 9 AM Bedside Glucose 260 H 243 H Exam/Review of Systems Exam Vitals Vital Signs Date Temp Pulse Resp B/P (MAP) Pulse Ox O2 O2 Flow FiO2 Time Delivery Rate 06/17/18 91 24 99 Nasal 3.0 13:51 Cannula 06/17/18 98.8 139/74 07:29 (95) 06/17/18 40 05:10 Intake and Output 06/16/18 06/16/18 06/17/18 1515:00 23:00 07:00 OutputOutput Total 800 ml BalanceBalance -800 ml Results Results 24hrs Laboratory Tests Test 06/16/18 18:56 06/16/18 21:28 06/16/18 23:35 06/17/18 02:51 Bedside Glucose 204 217 250 H 235 H Test 06/17/18 03:19 06/17/18 07:00 06/17/18 07:58 06/17/18 12:23 White Blood Count 11.8 #H Red Blood Count 5.20 Hemoglobin 15.3 Hematocrit 47.4 Mean Corpuscular 91.2 Volume Mean Corpuscular 29.4 Hemoglobin Mean Corpuscular 32.3 Hemoglobin Concen t Red Cell 13.5 Distribution Width Platelet Count 216 Mean Platelet 10.6 H Volume Immature 0.600 H Granulocytes % Neutrophils % 90.6 H Lymphocytes % 6.7 L Monocytes % 1.9 Eosinophils % 0.1 Basophils % 0.1 Nucleated Red 0.0 Blood Cells % Immature 0.070 H Granulocytes # Neutrophils # 10.7 H Lymphocytes # 0.8 Monocytes # 0.2 L Eosinophils # 0.0 Basophils # 0.0 Nucleated Red 0.0 Blood Cells # Sodium Level 143 Potassium Level 4.8 Chloride Level 105 Carbon Dioxide 28 Level Anion Gap 10 Blood Urea 28 H Nitrogen Creatinine 0.75 Est Glomerular > 60 Filtrat Rate mL/min Glucose Level 263 H Lactic Acid Level 2.5 *H Calcium Level 9.7 Phosphorus Level 4.2 Magnesium Level 2.3 Total Bilirubin 0.1 L Direct Bilirubin 0.00 Indirect 0.1 Bilirubin Aspartate Amino 29 Transf (AST/SGOT) Alanine 38 Aminotransferase (ALT/SGPT) Alkaline 103 Phosphatase Total Protein 7.1 Albumin 4.0 Globulin 3.10 Albumin/Globulin 1.29 Ratio Blood Gas Blood arterial Specimen Source Arterial Blood 06/17/2018 7:55:5 Date Drawn 3 AM Arterial Blood pH 7.417 (Temp corrected) Arterial Blood 44.7 pCO2 (Temp correct) Arterial Blood 84.4 pO2 (Temp corrected) Arterial Blood 28.1 H HCO3 Arterial Blood 3.0 Base Excess Arterial Blood 96.1 Oxygen Saturation Kevin Test ACCEPTAB Arterial Blood Right Radial Gas Puncture Site Arterial 0.5 Blood Carboxyhemo globin Arterial Blood 0.3 Methemoglobin Blood Gas A-a O2 149.4 H Differential Oxyhemoglobin 95.3 Percent Blood Gas 37.0 Temperature Blood Gas 20.0 Respiration Rate Blood Gas Actual 27 Respiration Rate Blood Gas MASK - BIPAP Modality FiO2 40.0 Blood Gas 12 Pressure Support Blood Gas TM Notified Whom Blood Gas 06/17/2018 8:10:2 Notified Time 9 AM Bedside Glucose 260 H 243 H Medications Medication Current Medications IV Flush (NS 3 ml) 3 ml PER PROTOCOL IV ; Start 06/16/18 at 06:30 Ondansetron HCl (Zofran Inj) 4 mg Q6H PRN IV NAUSEA/VOMITING; Start 06/16/18 at 06:30 Acetaminophen (Tylenol Tab) 650 mg Q6H PRN PO .PAIN 1-3 OR TEMP; Start 06/16/18 at 06:30 Acetaminophen/ Hydrocodone Bitart ([place] (5/325)) 1 tab Q6H PRN PO .PAIN 4-6; Start 06/16/18 at 06:30 Acetaminophen/ Hydrocodone Bitart ([place] (5/325)) 2 tab Q6H PRN PO .PAIN 7-10; Start 06/16/18 at 06:30 Heparin Sodium (Porcine) (Heparin (5000 Units/1ml)) 5,000 unit Q12 SC Last administered on 06/17/18 09:51; Admin Dose 5,000 UNIT; Start 06/16/18 at 09:00 Albuterol/ Ipratropium (Duoneb) 3 ml Q2H RESP THERAPY PRN HHN SHORTNESS OF BREATH; Start 06/16/18 at 06:30 Aspirin (Halfprin) 81 mg DAILY PO Last administered on 06/17/18 09:50; Admin Dose 81 MG; Start 06/16/18 at 09:00 Atorvastatin Calcium (Lipitor) 20 mg QHS PO Last administered on 06/16/18 21:12; Admin Dose 20 MG; Start 06/16/18 at 21:00 Diclofenac Sodium (Voltaren) 75 mg BID WITH MEALS PO Last administered on 06/17/18 07:59; Admin Dose 75 MG; Start 06/16/18 at 08:00 Isosorbide Mononitrate (Imdur) 60 mg DAILY PO Last administered on 06/17/18 09:52; Admin Dose 60 MG; Start 06/16/18 at 09:00 Lisinopril (Zestril) 10 mg DAILY PO Last administered on 06/17/18 09:52; Admin Dose 10 MG; Start 06/16/18 at 09:00 Metoprolol Succinate (Toprol Xl) 25 mg DAILY PO Last administered on 06/17/18at 09:52; Admin Dose 25 MG; Start 06/16/18 at 09:00 Miscellaneous Information 1 ea NOTE XX ; Start 06/16/18 at 07:30 Glucose (Glutose) 15 gm Q15M PRN PO DECREASED GLUCOSE; Start 06/16/18 at 07:30 Glucose (Glutose) 22.5 gm Q15M PRN PO DECREASED GLUCOSE; Start 06/16/18 at 07:30 Dextrose (D50w Syringe) 25 ml Q15M PRN IV DECREASED GLUCOSE; Start 06/16/18 at 07:30 Dextrose (D50w Syringe) 50 ml Q15M PRN IV DECREASED GLUCOSE; Start 06/16/18 at 07:30 Glucagon (Glucagen) 1 mg Q15M PRN IM DECREASED GLUCOSE; Start 06/16/18 at 07:30 Glucose (Glutose) 15 gm Q15M PRN BUCCAL DECREASED GLUCOSE; Start 06/16/18 at 07:30 Albuterol/ Ipratropium (Duoneb) 3 ml Q6H RESP THERAPY HHN Last administered on 06/17/18at 13:51; Admin Dose 3 ML; Start 06/16/18 at 14:00 Levofloxacin/ Dextrose 100 ml @ 100 mls/hr Q24H IVPB Last administered on 06/17/18at 12:45; Admin Dose 100 MLS/HR; Start 06/16/18 at 13:00 Insulin Aspart (Novolog Insulin Pen) NOVOLOG *MODERATE* ALGORITHM WITH MEALS BEDTIME SC Last administered on 06/17/18at 12:32; Admin Dose 6 UNIT; Start 06/16/18 at 17:55 Methylprednisolone Sodium Succinate (Solu-Medrol) 20 mg Q6 IV ; Start 06/17/18 at 18:00 Insulin Glargine (Lantus) 14 units DAILY@0800 SC ; Start 06/18/18 at 08:00 ZENAIDA EVANS Jun 17, 2018 15:32
--- NOTE | 2018-06-17 17:19 | RADRPT ---
Echocardiogram Report Patient Name: HYUN BRYANPatient ID: [id number] : 1960 (58y )Study Date: 06/17/2018 2:21:09 PM Gender: MAccession #: [id number] Tech: Denver Valenzuela LOTUS Location: [facility] Ref.Physician: VINNY VAZQUEZ Height(Cm): BSA: Weight(Kg): Quality: Technically Difficult StudyAccount #: Procedures: Echocardiographic Report: Transthoracic echocardiogram with complete 2D, M-Mode, and doppler examination. Indications: Shortness of breath. Measurements: 2D/M Mode Doppler Measurement Value Normal Range Measurement Value Normal Range LVIDd 2D 5.1 [ 4.2 - 5.8 ] cm AV Peak Des 2.1 [ 100.0 - 170.0 ] cm/sec LVIDs 2D 3.0 [ 2.5 - 4.0 ] cm AV Peak PG 18.0 [ 2.0 - 9.0 ] mmHg LVPWd 2D 1.2 [ 0.6 - 1.0 ] cm LVOT Peak Des 1.3 [ 70.0 - 110.0 ] cm/sec IVSd 2D 1.3 [ 0.6 - 1.0 ] cm LVOT Peak PG 7.0 [ 2.0 - 6.0 ] mmHg AoR Diam 2D 3.1 [ 2.6 - 3.4 ] cm MV E Peak Des 0.8 [ 60.0 - 130.0 ] cm/sec EDV 2D 122.0 [ 62.0 - 150.0 ] ml MV A Peak Des 1.0 [ 100.0 - 120.0 ] cm/sec ESV 2D 34.7 [ 21.0 - 61.0 ] ml MV E/A 0.8 [ 0.8 - 1.5 ] ratio EF 2D 71.6 [ 52.0 - 72.0 ] percent MV Decel Time 243 [ 104 - 258 ] msec LA Dimen 2D 3.7 [ 3.0 - 4.0 ] cm Lat E` Des 0.1 [ 10.0 - 15.0 ] cm/sec Lateral E/E` 7.3 [ 1.0 - 2.0 ] ratio MV E/A 0.8 [ 0.8 - 1.5 ] ratio Findings: Left Ventricle: Normal left ventricular systolic function. Normal left ventricular cavity size. Mild concentric left ventricular hypertrophy. Ejection fraction is visually estimated at 65 %. Tissue Doppler/Mitral Doppler indices are within normal limits. Right Ventricle: Normal right ventricular size. Normal right ventricular systolic function. Left Atrium: The left atrium is normal in size. Right Atrium: The right atrium is normal in size. Mitral Valve: Normal appearance of the mitral valve. Normal appearance and function of the mitral valve with trace physiologic regurgitation. Aortic Valve: Normal appearance of the aortic valve. No significant aortic stenosis or insufficiency. Tricuspid Valve: Normal appearance of the tricuspid valve. Unable to obtain RVSP due to minimal presence of tricuspid regurgitation. No evidence of tricuspid regurgitation. Pulmonic Valve: Pulmonic valve not well visualized. Pericardium: Normal pericardium with no significant pericardial effusion. Aorta: Normal aortic root. IVC: Normal size and normal respiratory collapse consistent with normal right atrial pressure. Conclusions: Normal left ventricular systolic function. Normal left ventricular cavity size. Mild concentric left ventricular hypertrophy. Ejection fraction is visually estimated at 65 %. Tissue Doppler/Mitral Doppler indices are within normal limits. No significant valvular stenosis or regurgitation seen. Unable to obtain RVSP due to minimal presence of tricuspid regurgitation. Normal size and normal respiratory collapse consistent with normal right atrial pressure. Electronically Signed By: Milton Dale 2018-06-17 17:18:18 PDT
[2018-06-17] MEDS: ATORVASTATIN 20 MG TAB PO SCH (21:53)
[2018-06-18] VITALS (16 sets, daily range): BP systolic 137–156; BP diastolic 65–91; PULSE 62–105; RESP 17–23
[2018-06-18] MEDS: ALBUTEROL/IPRATROPIUM (NEB) 3 ML AMP HHN SCH ×4 (01:07→20:36)
[2018-06-18] MEDS: METHYLPREDNISOLONE 40 MG INJ IV SCH ×4 (01:45→20:53)
[2018-06-18] MEDS: ISOSORBIDE MONONITRATE(SR)60 MG TAB PO SCH (08:10)
[2018-06-18] MEDS: LISINOPRIL 10 MG TAB PO SCH (08:10)
[2018-06-18] MEDS: DICLOFENAC (EC) 75 MG TAB PO SCH ×2 (08:10→17:10)
[2018-06-18] MEDS: METOPROLOL (XL) 25 MG TAB PO SCH (08:11)
[2018-06-18] MEDS: HEPARIN 5,000 UNIT/1 ML VIAL SC SCH ×2 (08:11→20:56)
[2018-06-18] MEDS: ASPIRIN (EC) 81 MG TAB PO SCH (08:11)
[2018-06-18] MEDS: INSULIN GLARGINE [LANTus] (100 UNITS/ML) SYG SC SCH (08:12)
[2018-06-18] MEDS: INSULIN ASPART [NOVOLOG] 3 ML PEN SC SCH ×4 (08:13→21:00)
--- NOTE | 2018-06-18 10:33 | CONS ---
Assessment/Plan Assessment/Plan Assessment/Plan (Daily) Assessment and recommendations; 1. Patient admitted for acute bronchitis and COPD exacerbation with significant interval improvement. 2. Hypercapnic respiratory failure with interval improvement as well. 3. History of diabetes and hypertension. 4. Possible underlying sleep apnea. Consider discharge. Patient will need to have a sleep study done on an outpatient basis. Consultation Date/Type/Reason Admit Date/Time Jun 16, 2018 at 01:19 Initial Consult Date 06/16/18 Type of Consult Pulmonary Date/Time of Note DATE: 06/18/18 TIME: 10:31 24 HR Interval Summary Free Text/Dictation Patient's condition is markedly improved. Denies any coughing, shortness of sara ath, wheezing. General exam; middle-aged male, awake and alert. Currently in no distress. On room air. Exam/Review of Systems Exam Vitals Vital Signs Date Temp Pulse Resp B/P (MAP) Pulse Ox O2 O2 Flow FiO2 Time Delivery Rate 06/18/18 87 08:07 06/18/18 22 100 Nasal 4.0 08:00 Cannula 06/18/18 98.3 145/82 07:36 (103) 06/18/18 40 03:48 Intake and Output 06/17/18 06/17/18 06/18/18 1515:00 23:00 07:00 IntakeIntake Total 400 ml BalanceBalance 400 ml Exam H EENT exam; supple neck, no JVD. No lymphadenopathy. Midline trachea. No thyromegaly. Patient wears dentures. Chest exam; diminished but clear breath sounds. S1-S2 audible, no murmurs. Regular rhythm. Abdomen exam; soft, protuberant. No organomegaly. Bowel sounds are audible. Extremity exam; no peripheral edema clubbing. DIRECTOR OF DESIGN exam; no focal deficit. Results Result Diagram: 06/18/18 0639 06/18/18 0639 Results 24hrs Laboratory Tests Test 06/17/18 12:23 06/17/18 17:43 06/17/18 21:17 06/18/18 02:37 Bedside Glucose 243 H 259 H 334 H 234 H Test 06/18/18 06:39 06/18/18 08:05 White Blood Count 12.9 H Red Blood Count 5.09 Hemoglobin 15.4 Hematocrit 46.8 Mean Corpuscular 91.9 Volume Mean Corpuscular 30.3 Hemoglobin Mean Corpuscular 32.9 Hemoglobin Concent Red Cell 13.3 Distribution Width Platelet Count 214 Mean Platelet Volume 10.5 H Immature 0.900 H Granulocytes % Neutrophils % 90.4 H Lymphocytes % 6.5 L Monocytes % 2.0 Eosinophils % 0.0 Basophils % 0.2 Nucleated Red Blood 0.0 Cells % Immature 0.120 H Granulocytes # Neutrophils # 11.7 H Lymphocytes # 0.8 Monocytes # 0.3 Eosinophils # 0.0 Basophils # 0.0 Nucleated Red Blood 0.0 Cells # Sodium Level 141 Potassium Level 4.7 Chloride Level 104 Carbon Dioxide Level 28 Anion Gap 9 Blood Urea Nitrogen 34 H Creatinine 0.88 Est Glomerular > 60 Filtrat Rate mL/min Glucose Level 262 H Calcium Level 9.0 Total Bilirubin 0.2 Direct Bilirubin 0.00 Indirect Bilirubin 0.2 Aspartate Amino 26 Transf (AST/SGOT) Alanine 41 Aminotransferase (AL T/SGPT) Alkaline Phosphatase 101 Total Protein 7.2 Albumin 4.1 Bedside Glucose 250 H Medications Medication Current Medications IV Flush (NS 3 ml) 3 ml PER PROTOCOL IV ; Start 06/16/18 at 06:30 Ondansetron HCl (Zofran Inj) 4 mg Q6H PRN IV NAUSEA/VOMITING; Start 06/16/18 at 06:30 Acetaminophen (Tylenol Tab) 650 mg Q6H PRN PO .PAIN 1-3 OR TEMP; Start 06/16/18 at 06:30 Acetaminophen/ Hydrocodone Bitart ([place] (5/325)) 1 tab Q6H PRN PO .PAIN 4-6; Start 06/16/18 at 06:30 Acetaminophen/ Hydrocodone Bitart ([place] (5/325)) 2 tab Q6H PRN PO .PAIN 7-10; Start 06/16/18 at 06:30 Heparin Sodium (Porcine) (Heparin (5000 Units/1ml)) 5,000 unit Q12 SC Last administered on 06/18/18at 08:11; Admin Dose 5,000 UNIT; Start 06/16/18 at 09:00 Albuterol/ Ipratropium (Duoneb) 3 ml Q2H RESP THERAPY PRN HHN SHORTNESS OF BREATH; Start 06/16/18 at 06:30 Aspirin (Halfprin) 81 mg DAILY PO Last administered on 06/18/18at 08:11; Admin Dose 81 MG; Start 06/16/18 at 09:00 Atorvastatin Calcium (Lipitor) 20 mg QHS PO Last administered on 06/17/18at 21:53; Admin Dose 20 MG; Start 06/16/18 at 21:00 Diclofenac Sodium (Voltaren) 75 mg BID WITH MEALS PO Last administered on 06/18/18at 08:10; Admin Dose 75 MG; Start 06/16/18 at 08:00 Isosorbide Mononitrate (Imdur) 60 mg DAILY PO Last administered on 06/18/18at 08:10; Admin Dose 60 MG; Start 06/16/18 at 09:00 Lisinopril (Zestril) 10 mg DAILY PO Last administered on 06/18/18at 08:10; Admin Dose 10 MG; Start 06/16/18 at 09:00 Metoprolol Succinate (Toprol Xl) 25 mg DAILY PO Last administered on 06/18/18at 08:11; Admin Dose 25 MG; Start 06/16/18 at 09:00 Miscellaneous Information 1 ea NOTE XX ; Start 06/16/18 at 07:30 Glucose (Glutose) 15 gm Q15M PRN PO DECREASED GLUCOSE; Start 06/16/18 at 07:30 Glucose (Glutose) 22.5 gm Q15M PRN PO DECREASED GLUCOSE; Start 06/16/18 at 07:30 Dextrose (D50w Syringe) 25 ml Q15M PRN IV DECREASED GLUCOSE; Start 06/16/18 at 07:30 Dextrose (D50w Syringe) 50 ml Q15M PRN IV DECREASED GLUCOSE; Start 06/16/18 at 07:30 Glucagon (Glucagen) 1 mg Q15M PRN IM DECREASED GLUCOSE; Start 06/16/18 at 07:30 Glucose (Glutose) 15 gm Q15M PRN BUCCAL DECREASED GLUCOSE; Start 06/16/18 at 07:30 Albuterol/ Ipratropium (Duoneb) 3 ml Q6H RESP THERAPY HHN Last administered on 06/18/18at 08:00; Admin Dose 3 ML; Start 06/16/18 at 14:00 Levofloxacin/ Dextrose 100 ml @ 100 mls/hr Q24H IVPB Last administered on 06/17/18at 12:45; Admin Dose 100 MLS/HR; Start 06/16/18 at 13:00 Insulin Aspart (Novolog Insulin Pen) NOVOLOG *MODERATE* ALGORITHM WITH MEALS BEDTIME SC Last administered on 06/18/18at 08:13; Admin Dose 6 UNIT; Start 06/16/18 at 17:55 Methylprednisolone Sodium Succinate (Solu-Medrol) 20 mg Q6 IV Last administered on 06/18/18at 06:29; Admin Dose 20 MG; Start 06/17/18 at 18:00 Insulin Glargine (Lantus) 14 units DAILY@0800 SC Last administered on 06/18/18at 08:12; Admin Dose 14 UNITS; Start 06/18/18 at 08:00 SHIELA SERVIN Jun 18, 2018 10:33
[2018-06-18] MEDS: LEVOFLOXACIN 500MG/D5W (PMX) 100 ML IVPB SCH (11:52)
--- NOTE | 2018-06-18 14:39 | PN ---
Date/Time of Note Date/Time of Note DATE: 06/18/18 TIME: 14:36 Assessment/Plan VTE Prophylaxis Risk score (from Nsg)>0 risk: 1 SCD applied (from Nsg): Yes Pharmacological prophylaxis: heparin Lines/Catheters IV Catheter Type (from Nrsg): Saline Lock Assessment/Plan Assessment/Plan 1. COPD exacerbation, neb, antibiotics, SoluMedrol, imptoving, decrease steroid 2. Respiratory failure, O2 3. Sleep apnea, on BiPAP whle at sleep 4. Right upper quadrant abdominal pain, Ultrasound shows dilated CBD without cho lelithiasis or cholecystitis, normal LFTs, clinically observation 5. Diabetes mellitus, lantus and ISS, hyperglycemia due to steroid, decrease steroid and keep ISS 6. Hypertension: Adjust antihypertensive as needed 7. Dyslipidemia: Continue statin 8. DVT prophylaxis: heparin Result Diagram: 06/18/1839 06/18/1839 Results 24hrs Laboratory Tests Test 06/17/18 17:43 06/17/18 21:17 06/18/18 02:37 06/18/18 06:39 Bedside Glucose 259 H 334 H 234 H White Blood Count 12.9 H Red Blood Count 5.09 Hemoglobin 15.4 Hematocrit 46.8 Mean Corpuscular 91.9 Volume Mean Corpuscular 30.3 Hemoglobin Mean Corpuscular 32.9 Hemoglobin Concent Red Cell 13.3 Distribution Width Platelet Count 214 Mean Platelet Volume 10.5 H Immature 0.900 H Granulocytes % Neutrophils % 90.4 H Lymphocytes % 6.5 L Monocytes % 2.0 Eosinophils % 0.0 Basophils % 0.2 Nucleated Red Blood 0.0 Cells % Immature 0.120 H Granulocytes # Neutrophils # 11.7 H Lymphocytes # 0.8 Monocytes # 0.3 Eosinophils # 0.0 Basophils # 0.0 Nucleated Red Blood 0.0 Cells # Sodium Level 141 Potassium Level 4.7 Chloride Level 104 Carbon Dioxide Level 28 Anion Gap 9 Blood Urea Nitrogen 34 H Creatinine 0.88 Est Glomerular > 60 Filtrat Rate mL/min Glucose Level 262 H Calcium Level 9.0 Total Bilirubin 0.2 Direct Bilirubin 0.00 Indirect Bilirubin 0.2 Aspartate Amino 26 Transf (AST/SGOT) Alanine 41 Aminotransferase (AL T/SGPT) Alkaline Phosphatase 101 Total Protein 7.2 Albumin 4.1 Test 06/18/18 08:05 06/18/18 11:52 Bedside Glucose 250 H 353 H Subjective 24 Hr Interval Summary Free Text/Dictation less shortness of breath Exam/Review of Systems Exam Vitals Vital Signs Date Temp Pulse Resp B/P (MAP) Pulse Ox O2 O2 Flow FiO2 Time Delivery Rate 06/18/18 95 20 98 Nasal 4.0 13:45 Cannula 06/18/18 97.5 146/68 11:20 (94) 06/18/18 40 03:48 Intake and Output 06/17/18 06/17/18 06/18/18 1515:00 23:00 07:00 IntakeIntake Total 400 ml BalanceBalance 400 ml Constitutional: alert, oriented, well developed, obese Head: normocephalic, atraumatic Eyes: nl conjunctiva, EOMI, nl lids, PERRL ENMT: nl external ears & nose, nl lips & teeth, nl nasal mucosa & septum, mucosa pink and moist Neck: supple, non-tender Respiratory: clear to auscultation, diminished breath sounds Cardiovascular: regular rate and rhythm, nl pulses; No bruits, No diastolic murmur, No edema, No gallop, No irregular rhythm, No jugular venous distention (JVD), No murmurs/extra sounds, No rub, No systolic murmur, No S3, No S4, No other Gastrointestinal: soft, nl liver, spleen, non-tender Musculoskeletal: nl extremities to inspection Extremities: normal pulses; No calf tenderness, No cyanosis, No clubbing, No edema, No pitting pedal edema, No palpable cord, No tenderness, No other Neurological: DICE TABLE PERSON II-XII intact, nl mental status, nl speech, nl strength Results Results 24hrs Laboratory Tests Test 06/17/18 17:43 06/17/18 21:17 06/18/18 02:37 06/18/18 06:39 Bedside Glucose 259 H 334 H 234 H White Blood Count 12.9 H Red Blood Count 5.09 Hemoglobin 15.4 Hematocrit 46.8 Mean Corpuscular 91.9 Volume Mean Corpuscular 30.3 Hemoglobin Mean Corpuscular 32.9 Hemoglobin Concent Red Cell 13.3 Distribution Width Platelet Count 214 Mean Platelet Volume 10.5 H Immature 0.900 H Granulocytes % Neutrophils % 90.4 H Lymphocytes % 6.5 L Monocytes % 2.0 Eosinophils % 0.0 Basophils % 0.2 Nucleated Red Blood 0.0 Cells % Immature 0.120 H Granulocytes # Neutrophils # 11.7 H Lymphocytes # 0.8 Monocytes # 0.3 Eosinophils # 0.0 Basophils # 0.0 Nucleated Red Blood 0.0 Cells # Sodium Level 141 Potassium Level 4.7 Chloride Level 104 Carbon Dioxide Level 28 Anion Gap 9 Blood Urea Nitrogen 34 H Creatinine 0.88 Est Glomerular > 60 Filtrat Rate mL/min Glucose Level 262 H Calcium Level 9.0 Total Bilirubin 0.2 Direct Bilirubin 0.00 Indirect Bilirubin 0.2 Aspartate Amino 26 Transf (AST/SGOT) Alanine 41 Aminotransferase (AL T/SGPT) Alkaline Phosphatase 101 Total Protein 7.2 Albumin 4.1 Test 06/18/18 08:05 06/18/18 11:52 Bedside Glucose 250 H 353 H Medications Medication Current Medications IV Flush (NS 3 ml) 3 ml PER PROTOCOL IV ; Start 06/16/18 at 06:30 Ondansetron HCl (Zofran Inj) 4 mg Q6H PRN IV NAUSEA/VOMITING; Start 06/16/18 at 06:30 Acetaminophen (Tylenol Tab) 650 mg Q6H PRN PO .PAIN 1-3 OR TEMP; Start 06/16/18 at 06:30 Acetaminophen/ Hydrocodone Bitart ([place] (5/325)) 1 tab Q6H PRN PO .PAIN 4-6; Start 06/16/18 at 06:30 Acetaminophen/ Hydrocodone Bitart ([place] (5/325)) 2 tab Q6H PRN PO .PAIN 7-10; Start 06/16/18 at 06:30 Heparin Sodium (Porcine) (Heparin (5000 Units/1ml)) 5,000 unit Q12 SC Last administered on 06/18/18at 08:11; Admin Dose 5,000 UNIT; Start 06/16/18 at 09:00 Albuterol/ Ipratropium (Duoneb) 3 ml Q2H RESP THERAPY PRN HHN SHORTNESS OF BREATH; Start 06/16/18 at 06:30 Aspirin (Halfprin) 81 mg DAILY PO Last administered on 06/18/18at 08:11; Admin Dose 81 MG; Start 06/16/18 at 09:00 Atorvastatin Calcium (Lipitor) 20 mg QHS PO Last administered on 06/17/18at 21:53; Admin Dose 20 MG; Start 06/16/18 at 21:00 Diclofenac Sodium (Voltaren) 75 mg BID WITH MEALS PO Last administered on 06/18/18at 08:10; Admin Dose 75 MG; Start 06/16/18 at 08:00 Isosorbide Mononitrate (Imdur) 60 mg DAILY PO Last administered on 06/18/18at 08:10; Admin Dose 60 MG; Start 06/16/18 at 09:00 Lisinopril (Zestril) 10 mg DAILY PO Last administered on 06/18/18at 08:10; Admin Dose 10 MG; Start 06/16/18 at 09:00 Metoprolol Succinate (Toprol Xl) 25 mg DAILY PO Last administered on 06/18/18at 08:11; Admin Dose 25 MG; Start 06/16/18 at 09:00 Miscellaneous Information 1 ea NOTE XX ; Start 06/16/18 at 07:30 Glucose (Glutose) 15 gm Q15M PRN PO DECREASED GLUCOSE; Start 06/16/18 at 07:30 Glucose (Glutose) 22.5 gm Q15M PRN PO DECREASED GLUCOSE; Start 06/16/18 at 07:30 Dextrose (D50w Syringe) 25 ml Q15M PRN IV DECREASED GLUCOSE; Start 06/16/18 at 07:30 Dextrose (D50w Syringe) 50 ml Q15M PRN IV DECREASED GLUCOSE; Start 06/16/18 at 07:30 Glucagon (Glucagen) 1 mg Q15M PRN IM DECREASED GLUCOSE; Start 06/16/18 at 07:30 Glucose (Glutose) 15 gm Q15M PRN BUCCAL DECREASED GLUCOSE; Start 06/16/18 at 07:30 Albuterol/ Ipratropium (Duoneb) 3 ml Q6H RESP THERAPY HHN Last administered on 06/18/18at 13:44; Admin Dose 3 ML; Start 06/16/18 at 14:00 Insulin Aspart (Novolog Insulin Pen) NOVOLOG *MODERATE* ALGORITHM WITH MEALS BEDTIME SC Last administered on 06/18/18at 11:54; Admin Dose 12 UNIT; Start 06/16/18 at 17:55 Insulin Glargine (Lantus) 14 units DAILY@0800 SC Last administered on 06/18/18at 08:12; Admin Dose 14 UNITS; Start 06/18/18 at 08:00 Levofloxacin (Levaquin) 500 mg DAILY@06 PO ; Start 06/19/18 at 06:00 Methylprednisolone Sodium Succinate (Solu-Medrol) 20 mg BID IV ; Start 06/18/18 at 21:00 VINNY VAZQUEZ MD Jun 18, 2018 14:39
--- NOTE | 2018-06-18 15:14 | PN ---
Date/Time of Note Date/Time of Note DATE: 06/18/18 TIME: 15:12 Assessment/Plan VTE Prophylaxis Risk score (from Nsg)>0 risk: 1 SCD applied (from Nsg): Yes Pharmacological prophylaxis: other Lines/Catheters IV Catheter Type (from Nrsg): Saline Lock Assessment/Plan Assessment/Plan Assessment: Hepatomegaly with hepatic steatosis Proximal common bile duct mild dilation measuring 10.5 mm- normal LFTs COPD exacerbation Morbid obesity Obstructive sleep apnea Plan: MRCP- canceled - LFTs stable, no c/o abdominal pain gi will sign off at this time Patient seen in collaboration with Dr. Abrams Subjective: Course reviewed with nursing staff Patient interviewed and examined All labs, imaging and other results reviewed The patient is doing well, denies abd pain. Tolerating diet well. Having regular BM;s daily. LFT's are normal. With no further recommendations GI will sign off and will be available to reconsult upon request. PHYSICAL EXAMINATION: GENERAL: Morbidly obese, awake, alert and oriented- O2 in place SKIN: No lesions. HEAD: Normocephalic, atraumatic, no tenderness. EYES: Pupils equal reactive to light, no discharge. EARS/NOSE AND THROAT: Ears normal, nose normal. NECK: Supple, no masses CHEST: Inspection within normal limits. CARDIOVASCULAR: Heart: Regular rate and rhythm RESPIRATORY: Diminished GASTROINTESTINAL AND LIVER: Abdomen: Soft, non tenderness, distended, no hernias, no masses, no organomegaly, no ascites, no guarding, no rebound tenderness, normoactive bowel sounds. Rectal: Deferred. Result Diagram: 06/18/18 0639 06/18/18 0639 Results 24hrs Laboratory Tests Test 06/17/18 17:43 06/17/18 21:17 06/18/18 02:37 06/18/18 06:39 Bedside Glucose 259 H 334 H 234 H White Blood Count 12.9 H Red Blood Count 5.09 Hemoglobin 15.4 Hematocrit 46.8 Mean Corpuscular 91.9 Volume Mean Corpuscular 30.3 Hemoglobin Mean Corpuscular 32.9 Hemoglobin Concent Red Cell 13.3 Distribution Width Platelet Count 214 Mean Platelet Volume 10.5 H Immature 0.900 H Granulocytes % Neutrophils % 90.4 H Lymphocytes % 6.5 L Monocytes % 2.0 Eosinophils % 0.0 Basophils % 0.2 Nucleated Red Blood 0.0 Cells % Immature 0.120 H Granulocytes # Neutrophils # 11.7 H Lymphocytes # 0.8 Monocytes # 0.3 Eosinophils # 0.0 Basophils # 0.0 Nucleated Red Blood 0.0 Cells # Sodium Level 141 Potassium Level 4.7 Chloride Level 104 Carbon Dioxide Level 28 Anion Gap 9 Blood Urea Nitrogen 34 H Creatinine 0.88 Est Glomerular > 60 Filtrat Rate mL/min Glucose Level 262 H Calcium Level 9.0 Total Bilirubin 0.2 Direct Bilirubin 0.00 Indirect Bilirubin 0.2 Aspartate Amino 26 Transf (AST/SGOT) Alanine 41 Aminotransferase (AL T/SGPT) Alkaline Phosphatase 101 Total Protein 7.2 Albumin 4.1 Test 06/18/18 08:05 06/18/18 11:52 Bedside Glucose 250 H 353 H CC: ; Exam/Review of Systems Exam Vitals Vital Signs Date Temp Pulse Resp B/P (MAP) Pulse Ox O2 O2 Flow FiO2 Time Delivery Rate 06/18/18 98.5 98 20 145/65 96 Nasal 15:09 (91) Cannula 06/18/18 4.0 13:45 06/18/18 40 03:48 Intake and Output 06/17/18 06/17/18 06/18/18 1515:00 23:00 07:00 IntakeIntake Total 400 ml BalanceBalance 400 ml Results Results 24hrs Laboratory Tests Test 06/17/18 17:43 06/17/18 21:17 06/18/18 02:37 06/18/18 06:39 Bedside Glucose 259 H 334 H 234 H White Blood Count 12.9 H Red Blood Count 5.09 Hemoglobin 15.4 Hematocrit 46.8 Mean Corpuscular 91.9 Volume Mean Corpuscular 30.3 Hemoglobin Mean Corpuscular 32.9 Hemoglobin Concent Red Cell 13.3 Distribution Width Platelet Count 214 Mean Platelet Volume 10.5 H Immature 0.900 H Granulocytes % Neutrophils % 90.4 H Lymphocytes % 6.5 L Monocytes % 2.0 Eosinophils % 0.0 Basophils % 0.2 Nucleated Red Blood 0.0 Cells % Immature 0.120 H Granulocytes # Neutrophils # 11.7 H Lymphocytes # 0.8 Monocytes # 0.3 Eosinophils # 0.0 Basophils # 0.0 Nucleated Red Blood 0.0 Cells # Sodium Level 141 Potassium Level 4.7 Chloride Level 104 Carbon Dioxide Level 28 Anion Gap 9 Blood Urea Nitrogen 34 H Creatinine 0.88 Est Glomerular > 60 Filtrat Rate mL/min Glucose Level 262 H Calcium Level 9.0 Total Bilirubin 0.2 Direct Bilirubin 0.00 Indirect Bilirubin 0.2 Aspartate Amino 26 Transf (AST/SGOT) Alanine 41 Aminotransferase (AL T/SGPT) Alkaline Phosphatase 101 Total Protein 7.2 Albumin 4.1 Test 06/18/18 08:05 06/18/18 11:52 Bedside Glucose 250 H 353 H Medications Medication Current Medications IV Flush (NS 3 ml) 3 ml PER PROTOCOL IV ; Start 06/16/18 at 06:30 Ondansetron HCl (Zofran Inj) 4 mg Q6H PRN IV NAUSEA/VOMITING; Start 06/16/18 at 06:30 Acetaminophen (Tylenol Tab) 650 mg Q6H PRN PO .PAIN 1-3 OR TEMP; Start 06/16/18 at 06:30 Acetaminophen/ Hydrocodone Bitart ([place] (5/325)) 1 tab Q6H PRN PO .PAIN 4-6; Start 06/16/18 at 06:30 Acetaminophen/ Hydrocodone Bitart ([place] (5/325)) 2 tab Q6H PRN PO .PAIN 7-10; Start 06/16/18 at 06:30 Heparin Sodium (Porcine) (Heparin (5000 Units/1ml)) 5,000 unit Q12 SC Last administered on 06/18/18at 08:11; Admin Dose 5,000 UNIT; Start 06/16/18 at 09:00 Albuterol/ Ipratropium (Duoneb) 3 ml Q2H RESP THERAPY PRN HHN SHORTNESS OF BREATH; Start 06/16/18 at 06:30 Aspirin (Halfprin) 81 mg DAILY PO Last administered on 06/18/18at 08:11; Admin Dose 81 MG; Start 06/16/18 at 09:00 Atorvastatin Calcium (Lipitor) 20 mg QHS PO Last administered on 06/17/18 21:53; Admin Dose 20 MG; Start 06/16/18 at 21:00 Diclofenac Sodium (Voltaren) 75 mg BID WITH MEALS PO Last administered on 06/18/18 08:10; Admin Dose 75 MG; Start 06/16/18 at 08:00 Isosorbide Mononitrate (Imdur) 60 mg DAILY PO Last administered on 06/18/18at 08:10; Admin Dose 60 MG; Start 06/16/18 at 09:00 Lisinopril (Zestril) 10 mg DAILY PO Last administered on 06/18/18at 08:10; Admin Dose 10 MG; Start 06/16/18 at 09:00 Metoprolol Succinate (Toprol Xl) 25 mg DAILY PO Last administered on 06/18/18at 08:11; Admin Dose 25 MG; Start 06/16/18 at 09:00 Miscellaneous Information 1 ea NOTE XX ; Start 06/16/18 at 07:30 Glucose (Glutose) 15 gm Q15M PRN PO DECREASED GLUCOSE; Start 06/16/18 at 07:30 Glucose (Glutose) 22.5 gm Q15M PRN PO DECREASED GLUCOSE; Start 06/16/18 at 07:30 Dextrose (D50w Syringe) 25 ml Q15M PRN IV DECREASED GLUCOSE; Start 06/16/18 at 07:30 Dextrose (D50w Syringe) 50 ml Q15M PRN IV DECREASED GLUCOSE; Start 06/16/18 at 07:30 Glucagon (Glucagen) 1 mg Q15M PRN IM DECREASED GLUCOSE; Start 06/16/18 at 07:30 Glucose (Glutose) 15 gm Q15M PRN BUCCAL DECREASED GLUCOSE; Start 06/16/18 at 07:30 Albuterol/ Ipratropium (Duoneb) 3 ml Q6H RESP THERAPY HHN Last administered on 06/18/18at 13:44; Admin Dose 3 ML; Start 06/16/18 at 14:00 Insulin Aspart (Novolog Insulin Pen) NOVOLOG *MODERATE* ALGORITHM WITH MEALS BEDTIME SC Last administered on 06/18/18at 11:54; Admin Dose 12 UNIT; Start 06/16/18 at 17:55 Insulin Glargine (Lantus) 14 units DAILY@0800 SC Last administered on 06/18/18at 08:12; Admin Dose 14 UNITS; Start 06/18/18 at 08:00 Levofloxacin (Levaquin) 500 mg DAILY@06 PO ; Start 06/19/18 at 06:00 Methylprednisolone Sodium Succinate (Solu-Medrol) 20 mg BID IV ; Start 06/18/18 at 21:00 AKASH RIVERS NP Jun 18, 2018 15:14
[2018-06-18] MEDS: ATORVASTATIN 20 MG TAB PO SCH (20:54)
[2018-06-19] VITALS (8 sets, daily range): BP systolic 138–174; BP diastolic 77–94; PULSE 78–103; RESP 18–22
[2018-06-19] MEDS: ALBUTEROL/IPRATROPIUM (NEB) 3 ML AMP HHN SCH ×3 (02:02→13:05)
[2018-06-19] MEDS ORDERED: INSULIN ASPART [NOVOLOG] 3 ML PEN SC ONE (03:00)
[2018-06-19] MEDS ORDERED: ACCU-CHEK XX ONE (03:00)
[2018-06-19] MEDS ORDERED: hydrALAzine 20 MG INJ IV ONE (05:00)
[2018-06-19] MEDS ORDERED: LEVOFLOXACIN 500 MG TAB PO SCH (06:00)
[2018-06-19] MEDS: DICLOFENAC (EC) 75 MG TAB PO SCH (07:57)
[2018-06-19] MEDS: INSULIN ASPART [NOVOLOG] 3 ML PEN SC SCH ×2 (08:01→11:50)
[2018-06-19] MEDS: INSULIN GLARGINE [LANTus] (100 UNITS/ML) SYG SC SCH (08:06)
[2018-06-19] MEDS: METOPROLOL (XL) 25 MG TAB PO SCH (08:49)
[2018-06-19] MEDS: METHYLPREDNISOLONE 40 MG INJ IV SCH (08:50)
[2018-06-19] MEDS: LISINOPRIL 10 MG TAB PO SCH (08:50)
[2018-06-19] MEDS: ISOSORBIDE MONONITRATE(SR)60 MG TAB PO SCH (08:50)
[2018-06-19] MEDS: ASPIRIN (EC) 81 MG TAB PO SCH (08:50)
[2018-06-19] MEDS: HEPARIN 5,000 UNIT/1 ML VIAL SC SCH (09:28)
--- NOTE | 2018-06-19 14:25 | PDOCDIS ---
Discharge Instructions CONDITION [id number] Patient Condition: [id number] Fair HOME CARE INSTRUCTIONS: [id number] Diet Instructions: [id number] Activity Restrictions: [id number] Slowly Increase Activity Avoid heavy lifting Do not Drive FOLLOW UP/APPOINTMENTS Follow-up Plan appt Primary & pul 2wks JORGE LIND MD Jun 19, 2018 14:25
[2018-06-19] MEDS ORDERED: MED4DP PO (14:28)
[2018-06-19] MEDS ORDERED: ACET325T33 PO (14:28)
[2018-06-19] MEDS ORDERED: ALBU90AE INHALATION (14:28)
--- NOTE | 2018-06-19 17:51 | DS ---
Date/Time of Note Date/Time of Note DATE: 06/19/18 TIME: 17:47 Discharge Summary Admission/Discharge Info Admit Date/Time Jun 16, 2018 at 01:19 Discharge Date/Time Jun 19, 2018 at 14:55 Patient Condition: Stable Consults Qarni; [facility] Procedures CXR #2 IMPRESSION: Mildly increased interstitial edema suggesting cardiopulmonary congestion. Abdominal ultrasound IMPRESSION: 1. Limited examination as the patient refused to maintain required positioning and inability to follow breathing instructions. 2. No evidence of cholelithiasis or acute cholecystitis. 3. Moderate dilation of visualized proximal common bile duct. Recommend correlation with laboratory data. This could be better evaluated with MRI/MRCP. 4. Hepatomegaly and diffuse hepatic steatosis. No intrahepatic biliary ductal dilatation. 2D ECHO Conclusions: Normal left ventricular systolic function. Normal left ventricular cavity size. Mild concentric left ventricular hypertrophy. Ejection fraction is visually estimated at 65 %. Tissue Doppler/Mitral Doppler indices are within normal limits. No significant valvular stenosis or regurgitation seen. Unable to obtain RVSP due to minimal presence of tricuspid regurgitation. Normal size and normal respiratory collapse consistent with normal right atrial pressure. Hx of Present Illness 58-year-old gentleman admitted with shortness of breath and upper chest pain Hospital Course Hospitalist coverage Admitted and evaluated for dyspnea and atypical chest pain. Rule out for ACS by enzymes EKG symptoms. Patient has multiple cardiac risk factors but at this time will be optimized medically/conservatively. If indicated as an outpatient consider stress test. Chronic obstructive apnea? Needs outpatient retesting. Referral placed Acute hypoxic and hypercapnic respiratory failure, stable resolved. Treated his COPD bronchitis exacerbation. COPD exacerbation, stable home on short course of prednisone and aerosols Super Morbid obesity Diabetes A1c 7.7 not at goal Not arterial hypertension Dyslipidemia Nonadherence Dilated common bile duct however imaging LFTs normal. Patient was seen by GI. May follow-up with GI as needed. Home Meds Active Scripts Methylprednisolone* (Medrol* DOSE PACK) 4 Mg/Dose-Pack Tab.ds.pk, 4 MG PO . DIRECTED for 4 Days, #1 PACKET dispense 1 pack Prov:JORGE LIND MD 06/19/18 Albuterol Sulfate (Proair Respiclick) 90 Mcg Aer.pow.ba, 2 PUFFS INHALATION Q4 PRN for SHORTNESS OF BREATH for 10 Days, #1 INHALER 2 Refills Prov:JORGE LIND MD 06/19/18 Acetaminophen* (Tylenol*) 325 Mg Tablet, 650 MG PO Q6H PRN for .PAIN 1-3 OR TEMP for 1 Day, TAB Prov:JORGE LIND MD 06/19/18 Reported Medications Sitagliptin Phos/Metformin HCl (Janumet 50-500 mg Tablet) 1 Each Tablet, 1 TAB PO DAILY for 30 Days, #30 06/15/18 Amlodipine-Benazepril (Amlodipine-Benazepril) 5-40 Mg Capsule, 1 TAB PO DAILY for 30 Days, #30 06/15/18 Metoprolol Succinate* (Toprol XL*) 25 Mg Tab.sr.24h, 25 MG PO DAILY for 30 Days, #30 06/15/18 Atorvastatin Calcium (Atorvastatin Calcium) 20 Mg Tablet, 20 MG PO QHS for 30 Days, #30 06/15/18 Lisinopril* (Lisinopril*) 10 Mg Tablet, 10 MG PO DAILY for 30 Days, #30 06/15/18 Isosorbide Mononitrate* (Isosorbide Mononitrate*) 60 Mg Tab.er.24h, 60 MG PO DAILY, TAB 07/23/16 Aspirin* (Aspirin* EC) 81 Mg Tablet.dr, 81 MG PO DAILY, TAB 07/23/16 Discontinued Reported Medications Diclofenac Sodium* (Diclofenac Sodium*) 75 Mg Tablet.dr, 75 MG PO BID WITH MEALS, #60 TAB 07/23/16 Ibuprofen* (Ibuprofen*) 800 Mg Tab, 800 MG PO Q6H, TAB 07/23/16 Discontinued Scripts Hydrocodone/Acetaminophen ([place] 5-325 Tablet) 1 Each Tablet, 1 EACH PO Q6 for SEVERE PAIN LEVEL 7-10, #14 TAB Prov:KASH LLOYD DO 09/06/16 Naproxen* (Naproxen*) 500 Mg Tablet, 500 MG PO BID PRN for PAIN, #20 TAB Prov:KASH LLOYD DO 09/06/16 Follow-up Plan appt Primary & pul 2wks Primary Care Provider Jean-Claude Bruno Time spent on discharge: > 30 minutes Pending Labs Laboratory Tests Test 06/18/18 20:46 06/19/18 02:31 06/19/18 03:25 06/19/18 05:10 Bedside [phone] 348 Glucose mg/dL (70-220) mg/dL (70-220) mg/dL (70-220) mg/dL (70-220) Test 06/19/18 06:37 06/19/18 07:58 White Blood 12.3 Count 10^3/ul (4.8-10 .8) Red Blood 5.44 Count 10^6/ul (4.70-6 .10) Hemoglobin 16.1 g/dl (14.0-18.0 ) Hematocrit 49.0 % (42.0-52.0) Mean 90.1 Corpuscular fl (82.0-101.0) Volume Mean 29.6 Corpuscular pg (29.0-33.0) Hemoglobin Mean 32.9 Corpuscular g/dl (32.0-37.0 Hemoglobin Conc ) ent Red Cell 13.5 Distribution % (11.5-14.5) Width Platelet Count 216 10^3/UL (140-41 5) Mean Platelet 10.4 Volume fl (7.4-10.4) Immature 1.400 Granulocytes % % (0.001-0.429) Neutrophils % 80.4 % (39.0-77.0) Lymphocytes % 11.7 % (15.0-51.0) Monocytes % 6.1 % (0.0-11.0) Eosinophils % 0.2 % (0.0-7.0) Basophils % 0.2 % (0.0-2.0) Nucleated Red 0.0 Blood Cells % /100WBC (0.0-0. 0) Immature 0.170 Granulocytes # 10^3/ul (0.0-0. 031) Neutrophils # 9.9 10^3/ul (1.6-7. 5) Lymphocytes # 1.4 10^3/ul (0.8-2. 9) Monocytes # 0.8 10^3/ul (0.3-0. 9) Eosinophils # 0.0 10^3/ul (0.0-0. 5) Basophils # 0.0 10^3/ul (0.0-0. 1) Nucleated Red 0.0 Blood Cells # 10^3/ul (0.0-0. 0) Sodium Level 140 mmol/L (135-144 ) Potassium 4.3 Level mmol/L (3.5-5.1 ) Chloride Level 104 mmol/L (97-110) Carbon Dioxide 26 Level mmol/L (21-31) Anion Gap 10 (5-13) Blood Urea 27 mg/dl (7-20) Nitrogen Creatinine 0.76 mg/dl (0.61-1.2 4) Est Glomerular > 60 Filtrat mL/min (>60) Rate mL/min Glucose Level 263 mg/dl (70-220) Calcium Level 9.4 mg/dl (8.4-10.2 ) Bedside 205 Glucose mg/dL (70-220) JORGE LIND MD Jun 19, 2018 17:51
== END 2018-06-19 14:55 | disposition home or self-care (01) | DRG 190 ==
LOC: E/R 21:22 → TEL 06-16 01:19
PROVIDERS: ADMIT Internal Medicine; ATTEND Internal Medicine
PROC: 5A09457 Assistance with Respiratory Ventilation, 24-96 Consecutive Hours, Continuous Positive Airway Pressure (ICD-10-PCS; principal; 2018-06-15)
PROC: 4A133R1 Monitoring of Arterial Saturation, Peripheral, Percutaneous Approach (ICD-10-PCS; 2018-06-16)
DX: J44.1 Chronic obstructive pulmonary disease with (acute) exacerbation (principal); J96.21 Acute and chronic respiratory failure with hypoxia; J96.22 Acute and chronic respiratory failure with hypercapnia; Z68.42 Body mass index [BMI] 45.0-49.9, adult; J44.0 Chronic obstructive pulmonary disease with (acute) lower respiratory infection; J20.9 Acute bronchitis, unspecified; E66.01 Morbid (severe) obesity due to excess calories; Z71.3 Dietary counseling and surveillance; I10 Essential (primary) hypertension; E11.9 Type 2 diabetes mellitus without complications; E78.5 Hyperlipidemia, unspecified; K83.8 Other specified diseases of biliary tract; G47.33 Obstructive sleep apnea (adult) (pediatric); K76.0 Fatty (change of) liver, not elsewhere classified; Z79.82 Long term (current) use of aspirin
CPT/HCPCS: 36415; 36600; 71045; 76705; 80048; 80053; 80061; 80076; 81003; 82150; 82803; 82962; 83036; 83605; 83690; 83735; 83880; 84100; 84484; 85025; 85610; 85730; 87086; 93005; 93306; 94640; 94644; 94660; 94664; 96374; 96375; J0360; J1170; J1644; J1815; J1940; J1956; J2405; J2920; J2930; J7030; Q9967